=== PATIENT | female | born 1955 | race Caucasian/White ===

== ENCOUNTER 2018-01-17 06:27 | Day surgery (SDC) | payer OTHER, SELFPAY ==
[2018-01-17] VITALS (8 sets, daily range): BP systolic 82–139; BP diastolic 52–75; PULSE 54–68; RESP 16–20; TEMP 36.4–37.2; O2SAT 95–98; BMI 34.6
--- NOTE | 2018-01-17 07:26 | PCM.HP.STD ---
Problem List (1) Positive colorectal cancer screening using Cologuard test Status: Acute History of Present Illness Date of Admission: 01/17/18 The patient is a 62 year old F who has GERD and a positive Cologuard test. She is not having any blood in her stool or abdominal pain. She reports that after being started on a PPI her GERD is significantly improved and she does not want an EGD. She is here for colonoscopy. Past Medical History Past Medical History (Chronic Problems): Chronic Problems (Last Reviewed 12/16/17 @ 13:20 by Dayna Grimaldo) HTN (hypertension) (Chronic) Obesity (Chronic) Allergies Sulfa (Sulfonamide Antibiotics) Allergy (Verified 01/11/18 15:58) Rash Home Medications: Ambulatory Orders Medication Instructions Recorded Hydrochlorothiazide [Hctz] 25 mg PO DAILY 10/25/17 Meloxicam [Mobic] 15 mg PO DAILY 10/25/17 Oxybutynin [Ditropan] 5 mg PO DAILY 10/25/17 pantoprazole 40 mg tablet,delayed 40 mg PO QDAY #60 tab 12/06/17 release Surgical History: appendectomy, - - Tubal ligation Psychiatric History: No pertinent psych hx 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 Smoking Status: Never smoker - *Family History Maternal History Items: Diabetes, Heart Disease, Hypertension, - Paternal History Items: Heart Disease, - Sibling History Items: Hypertension Review of Systems Constitutional: Denies: Anorexia, Chills Respiratory: Denies: Cough, Shortness of Breath Gastrointestinal: Denies: Abdominal Pain Genitourinary: Denies: Dysuria VTE Information - Inpt Only VTE Present on Admission: No Patient Problems: Active and Suspected Problems (Last Reviewed 12/16/17 @ 13:20 by Dayna Grimaldo) Positive colorectal cancer screening using Cologuard test (Acute) - Physical Exam General: Alert, Oriented x3, Cooperative Lungs: Normal air movement Cardiovascular: Regular rate, Regular Rhythm Abdomen: Soft, Non Tender, Non-Distended Vital Signs Temp Pulse Resp BP Pulse Ox 98.9 F 68 16 136/70 H 98 01/17/18 06:49 01/17/18 06:49 01/17/18 06:49 01/17/18 06:49 01/17/18 06:49 Oxygen Delivery Method Room Air Weight: 205 lb 0.478 oz Body Mass Index (BMI) 34.6 Assessment/Plan Active and Suspected Problems (Last Reviewed 12/16/17 @ 13:20 by Dayna Grimaldo) Positive colorectal cancer screening using Cologuard test (Acute) 62-year-old female with positive Cologuard test here for screening colonoscopy 1. Patient is here for screening colonoscopy after having a positive screening test. She reports no blood in her stool or abdominal pain. No family history of colon cancer. She says that her EGD has been significantly improved with the PPI and does not want an EGD at this time. 2. I explained endoscopy in detail to the patient. I explained the risks including but not limited to stroke or heart attack with anesthesia, perforation of the GI tract, bleeding, infection. I explained that any of these could necessitate further emergency surgery. The patient understands and all questions were answered sufficiently. The patient wishes to proceed with procedure. Floyd Monroe MD Pager: [facility] [address], [facility] [address] [place] [address] Office:
--- NOTE | 2018-01-17 07:29 | HP.PCM_ITS ---
Problem List (1) Positive colorectal cancer screening using Cologuard test Status: Acute History of Present Illness Date of Admission: 01/17/18 The patient is a 62 year old F who has GERD and a positive Cologuard test. She is not having any blood in her stool or abdominal pain. She reports that after being started on a PPI her GERD is significantly improved and she does not want an EGD. She is here for colonoscopy. Past Medical History Past Medical History (Chronic Problems): Chronic Problems (Last Reviewed 12/16/17 @ 13:20 by Dayna Grimaldo) HTN (hypertension) (Chronic) Obesity (Chronic) Allergies Sulfa (Sulfonamide Antibiotics) Allergy (Verified 01/11/18 15:58) Rash Home Medications: Ambulatory Orders Medication Instructions Recorded Hydrochlorothiazide [Hctz] 25 mg PO DAILY 10/25/17 Meloxicam [Mobic] 15 mg PO DAILY 10/25/17 Oxybutynin [Ditropan] 5 mg PO DAILY 10/25/17 pantoprazole 40 mg tablet,delayed 40 mg PO QDAY #60 tab 12/06/17 release Surgical History: appendectomy, - - Tubal ligation Psychiatric History: No pertinent psych hx 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 history Smoking Status: Never smoker - *Family History Maternal History Items: Diabetes, Heart Disease, Hypertension, - Paternal History Items: Heart Disease, - Sibling History Items: Hypertension Review of Systems Constitutional: Denies: Anorexia, Chills Respiratory: Denies: Cough, Shortness of Breath Gastrointestinal: Denies: Abdominal Pain Genitourinary: Denies: Dysuria VTE Information - Inpt Only VTE Present on Admission: No Patient Problems: Active and Suspected Problems (Last Reviewed 12/16/17 @ 13:20 by Dayna Grimaldo) Positive colorectal cancer screening using Cologuard test (Acute) - Physical Exam General: Alert, Oriented x3, Cooperative Lungs: Normal air movement Cardiovascular: Regular rate, Regular Rhythm Abdomen: Soft, Non Tender, Non-Distended Vital Signs Temp Pulse Resp BP Pulse Ox 98.9 F 68 16 136/70 H 98 01/17/18 06:49 01/17/18 06:49 01/17/18 06:49 01/17/18 06:49 01/17/18 06:49 Oxygen Delivery Method Room Air Weight: 205 lb 0.478 oz Body Mass Index (BMI) 34.6 Assessment/Plan Active and Suspected Problems (Last Reviewed 12/16/17 @ 13:20 by Dayna Grimaldo) Positive colorectal cancer screening using Cologuard test (Acute) 62-year-old female with positive Cologuard test here for screening colonoscopy 1. Patient is here for screening colonoscopy after having a positive screening test. She reports no blood in her stool or abdominal pain. No family history of colon cancer. She says that her EGD has been significantly improved with the PPI and does not want an EGD at this time. 2. I explained endoscopy in detail to the patient. I explained the risks including but not limited to stroke or heart attack with anesthesia, perforation of the GI tract, bleeding, infection. I explained that any of these could necessitate further emergency surgery. The patient understands and all questions were answered sufficiently. The patient wishes to proceed with procedure. Floyd Monroe MD Pager: [facility] [address], [facility] [address] [place] [address] Office:
--- NOTE | 2018-01-17 09:05 | PCM.OPRPT ---
Problem List (1) Positive colorectal cancer screening using Cologuard test Status: Acute Report of Operation Date of Procedure: 01/17/18 Pre-Operative Diagnosis: Positive ColoGuard test Post-Operative Diagnosis: Normal colonoscopy. Diverticulosis Surgery/Procedure Performed:: Colonoscopy Description of Procedure: The major risks and benefits associated with the procedure were explained to the patient in detail. The patient verbalized understanding and agreement with the same. The patient was brought to the endoscopy suite. After adequate sedation was achieved, the patient was placed in the left lateral decubitus position and a digital rectal exam was performed. This examination was within normal limits. A well-lubricated colonoscope was then inserted into the rectum and advanced under direct visualization to the level of the cecum. The bowel prep was good. The cecum was identified by both visual and anatomic landmarks. A photograph was taken of the end of the cecum. The scope was then fully withdrawn while examining the color, texture, anatomy and integrity of the mucosa from the cecum to the anal canal. The findings were consistent with normal colonic mucosa. The patient did have mild diverticulosis of the sigmoid colon. Over 6 minutes were taken to examine the colonic mucosa. Upon reaching the rectum the scope was retroflexed to examine the distal rectal vault. The scope was then straightened and was completely retrieved upon exiting the anal canal and the procedure was terminated. The patient was then transferred to the recovery room in stable condition. Recommendations for follow up: 10 years
== END 2018-01-17 08:30 | disposition home or self-care (01) ==
LOC: EN 06:28 → AC 06:30
PROVIDERS: Family Provider Family Medicine; PCP Family Medicine; Visit Provider Surgery
PROC: 0DJD8ZZ Inspection of Lower Intestinal Tract, Via Natural or Artificial Opening Endoscopic (ICD-10-PCS; CPT 45378; principal; 2018-01-17 07:25)
DX: Z12.11 Encounter for screening for malignant neoplasm of colon (principal); K57.30 Diverticulosis of large intestine without perforation or abscess without bleeding; I10 Essential (primary) hypertension; K21.9 Gastro-esophageal reflux disease without esophagitis; E66.9 Obesity, unspecified; Z68.34 Body mass index [BMI] 34.0-34.9, adult; Z79.899 Other long term (current) drug therapy; Z78.0 Asymptomatic menopausal state; Z98.51 Tubal ligation status
CPT/HCPCS: 45378; J7120

== ENCOUNTER 2018-06-29 15:00 | Outpatient (RCR) | payer OTHER, SELFPAY ==
--- NOTE | 2018-06-02 10:05 | HP.PTEVAL_ITS ---
Patient's Visit Information DARLING ZENDEJAS is a 63 year old F referred to Physical Therapy by Princess Brantley DO with a diagnosis of Left Knee Pain. Date of Evaluation: 06/02/18 Physical Therapist: Sharron William PT - Visit Plan Frequency: 2x /Week Duration: 4 Weeks Plan: Therapeutic exercises and activities to target BLE strength, endurance, flexibility and range of motion. Gait and balance training for improved mobility. Modalities and Manual as needed to decrease pain and increase ROM. Incorporate HEP to promote maintainence and independence. - Subjective Subjective: KYLEE Patient presents with left knee pain that has been going on for over 2 months. 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 State pain worsens with stairs especially going down, standing on her feet for extended time and bending her knee. Reports no numbness or tingling but does have clicking sensation and crackling in knee at times. Pain is relieved by tylenol and keeping knee straight. Reports no MRI or Xray. No reported MSK, neuro, respiratory or heart conditions - Pain left knee Pain Intensity (Out of 10): 3 Pain Intensity Range: 5 Comment: worsen with prolonged activity - Objective Posture: Sitting slouched with left knee extended; Static standing equal WB through BLE but with extended time standing slight shift onto RLE. Appearance: Moderate swelling of left knee especially medial and anterior to patella. Slight swelling of back of knee. Sensation: Intact to light touch. Palpation: Tenderness and pain to palpation over medial joint line of left knee; Slight tenderness to palpation behind left knee. ROM: Bilateral hips WFL; R knee 0-125 * and L knee 3-90* actively and passively 3-110*. Strength: BLE grossly 4+/5 except left knee flexion 4-/5, bilateral hip abduction (seated) 4/5, left hip flexion 4/5 and left knee extension 4/5; Pain with resistance to left knee movements. Flexibility: Moderate tightness of bilateral hamstrings R knee -15* knee extension and L knee -25* knee extension. Special Tests: See below; No positive signs for pain, however, increased uncomfortability to disco and Ruperto tests. Presenting more arthritic then ligament at evaluation. Balance : Tandem stance bilaterally 30 seconds with moderate ankle sway. Gait: Patient ambulating with a heel/toe gait pattern with an ataxic gait with decrease stance time on LLE. Mild hip drop on the right. When more irritated toward end of evaluation increased hip hike on the left to help clear foot. Stairs: patient ascends stairs using an alternating foot pattern with single to occasional bilateral handrail support. Descending stairs she uses a step to pattern, left leading, with bilateral handrail support - Special Tests L Knee Ruperto - Meniscus: Negative L Knee Disco Test - Meniscus: Negative L Knee Anterior Drawer - ACL: Negative L Knee Posterior Drawer - PCL: Negative L Knee Valgus - MCL: Negative L Knee Varus - LCL: Negative - Goals Goal 1:: Patient will increase L knee ROM to match R knee motion for improved mobility Goal Time Frame: 4-6 Weeks Goal 2:: patient will increase L knee strength grossly 4+/5 for improved performance with functional activities Goal Time Frame: 4-6 Weeks Goal 3:: Patient will increase bilateral hamstring flexibility by 5* for improved mobility Goal Time Frame: 4-6 Weeks Goal 4:: Patient will descend stairs using an alternating foot pattern with bilateral handrail support for improved performance with ADLs. Goal Time Frame: 4-6 Weeks Goal 5:: Patient will ambulate 100 ft. with a heel/toe gait pattern without conpensatory movements for improved gait and mobility. Goal Time Frame: 4-6 Weeks Goal 6:: Patient will increase BLE grossly 5/5 for improved performance with functional activities Goal Time Frame: 4-6 Weeks - Rehabilitation Potential Physical Therapy Diagnosis: Muscle Weakness, Limited Range of Motion, Impaired Gait Rehabilitation Potential: Fair - Anticipated Interventions Patient/Client Instruction: Educate patient on: Condition, Plan of Care For the Purpose of:: To decrease pain, To decrease swelling/inflammation, To increase ROM, To improve muscle performance and motor function, To improve ability to perform ADL's, To improve performance and independence with ADL's, To improve ability of physical actions for home/community/work/leisure, To improve gait and locomotor functions, To improve endurance, To improve balance, To improve safety with gait Therapeutic Exercise to Include: Strength training, Endurance training, Balance training, Body mechanics, Flexibilty training, Gait and locomotor training, Passive ROM, Active ROM For the Purpose of:: To decrease pain, To increase ROM, To improve muscle performance and motor function, To improve ability of physical actions for home/ community/work/leisure, To improve gait and locomotor functions Functional Training to Include: ADL Training, Gait training For the Purpose of:: To improve muscle performance and motor function, To improve performance and independence with ADL's, To improve ability of physical actions for home/community/work/leisure, To improve gait and locomotor functions Comment: massage not covered For the Purpose of:: To decrease pain, To decrease swelling/inflammation, To increase ROM, To increase flexibility/ROM Iontophoresis (with Dexamethozone, with Acetic acid): No - not covered by insurance For the Purpose of:: To decrease pain, To decrease swelling/inflammation, To increase ROM, To increase flexibility/ROM Thank you for the opportunity to evaluate your patient. For Medicare and Medicare HMO plans, please review the plan of care and approve it. It will need to be FAXED BACK to us at [phone] for Medicare purposes. Please let me know if there are questions or concerns regarding this plan of care. Physician Signature: Date:
--- NOTE | 2018-06-29 15:36 | HP.PTDCSUM ---
HP - PT D/C Summary It has been my pleasure to treat DARLING ZENDEJAS under orders from Princess Brantley DO, for the diagnosis of Left Knee Pain for a total of 8 visit(s). Discharge Date: Please see the following information for a summary of their discharge status. - Subjective Subjective: No pain this date - Pain left knee Pain Intensity (Out of 10): 0 - Overall Improvement % Improvement: 80 - Objective Objective/Function: 0/10 pain this date. No more sleep difficulty secondary to pain. L knee ROM: 0-128 degrees. L knee MMT: 5/5 throughout. Pt is able to negotiate stairs now without limitation. I with HEP. Rx goals achieved - Goals Goal 1:: Patient will increase L knee ROM to match R knee motion for improved mobility Goal Progress: Goal Met Goal 2:: patient will increase L knee strength grossly 4+/5 for improved performance with functional activities Goal Progress: Goal Met Goal 3:: Patient will increase bilateral hamstring flexibility by 5* for improved mobility Goal Progress: Goal Met Goal 4:: Patient will descend stairs using an alternating foot pattern with bilateral handrail support for improved performance with ADLs. Goal Progress: Goal Met Goal 5:: Patient will ambulate 100 ft. with a heel/toe gait pattern without conpensatory movements for improved gait and mobility. Goal Progress: Goal Met Goal 6:: Patient will increase BLE grossly 5/5 for improved performance with functional activities Goal Progress: Goal Met - Plan Plan: Discharge - D/C Information If there are questions or concerns regarding this patient's physical therapy, please feel free to call me at [phone]. Thank you for the referral of this patient. Sincerely, Pranay Gonzales, PT,
== END 2018-06-29 19:00 | disposition home or self-care (01) ==
LOC: PT 15:00
PROVIDERS: Family Provider Family Medicine; PCP Family Medicine; Visit Provider Family Medicine
DX: M25.562 Pain in left knee (principal); S83 Dislocation and sprain of joints and ligaments of knee
CPT/HCPCS: 97110; 97162; 97530

== ENCOUNTER → 2019-01-31 09:22 | Outpatient (CLI) | payer OTHER, SELFPAY ==
--- NOTE | 2019-01-31 09:28 | BI_ITS ---
MAMMOGRAPHY - BILATERAL SCREENING REASON FOR EXAM: Female, 63 years old. Routine annual screening examination. PERTINENT HISTORY: Non-contributory. TECHNIQUE: Digital bilateral breast christina (3D mammographic acquisition) in the CC and MLO projections. 2-D mediolateral oblique (MLO) and craniocaudad (CC) views of both breasts were obtained. CAD: Full Field Digital Mammography with Computer Added Detection was performed. COMPARISON: Comparison is made with prior examination dated November 22, 2017. FINDINGS: Breast Composition: The breasts are heterogeneously dense, which may obscure small masses. There are no dominant masses or suspicious calcifications. No other significant abnormalities are identified. There has been no significant change since the prior study. BI/SCREENING MAMM (CAD), BILAT IMPRESSION: Stable bilateral screening mammogram. Yearly follow-up mammogram recommended. (A) ASSESSMENT CATEGORY: BIRADS Category 1: Negative. A letter regarding these results will be sent to the patient by the facility within 30 days. Approximately 10% of breast cancers are not detected by mammography. A normal mammogram should not delay biopsy of a clinically suspicious abnormality. [id number] Electronically Signed: Vito Weinstein, at 13:08 EDT , Service support ,
[2019-01-31 10:32] LABS: Absolute Lymphocyte Count 1.84 X10^3/ul (0.83-4.51); Absolute Neutrophil Count 4.7 X10^3/uL (2.0-7.7); Basophil# 0.02 X10^3/uL; Basophil% 0.3 % (0-1); Eosinophil# 0.13 X10^3/uL; Eosinophils% 1.8 % (0-5); Hematocrit 41.7 % (37-47); Hemoglobin 13.7 g/dl (12.0-15.0); Lymphocyte # 1.84 X10^3/ul (4.0); Mean Corp Hgb Conc 32.9 g/gl (32-36); Mean Corpuscular Hgb 29.5 pg (27.0-32.0); Mean Corpuscular Volume 89.9 fL (81-99); Mean Platelet Vol. 10.3 fl (6.2-12.0); Monocyte# 0.69 X10^3/uL; Monocyte% 9.4 % (0-10); Neutrophil # 4.66 X10^3/uL (2.7-7.7); Neutrophil % 63.2 % (47-70); Platelet Count 245 K/mm3 (150-450); RBC Distribution Width CV 13.5 % (11.6-14.6); RBC Distribution Width SD 43.7 fl (35.1-43.9); Red Blood Count 4.64 M/mm3 (4.2-5.4); White Blood Count 7.4 K/mm3 (4.4-11.0)
[2019-01-31 10:36] LABS: POSITIVE COUNT NO; POSITIVE DIFFERENTIAL NO; POSITIVE MORPHOLOGY NO
[2019-01-31 10:42] LABS: AST(SGOT) 18 U/L (15-37); Alanine Aminotransfer ALT/SGPT 27 U/L (13-56); Albumin, Serum 4.2 g/dL (3.2-5.0); Alkaline Phosphatase 85 U/L (45-117); Anion Gap 9 (5-15); BUN 19 mg/dL (7-18); BUN/Creat Ratio 16.7 RATIO (10-20); Calcium,Total 9.2 mg/dL (8.5-10.1); Chloride 105 mmol/L (98-107); Cholesterol 227 mg/dL (200); Creatinine, Serum 1.14 mg/dL (0.55-1.02); EST Glomerular Filtration Rate 51 mL/min (>60); Est Glom Filt Rate - Afr Amer 62 mL/min (>60); Globulin 4.1 g/dL (2.2-4.2); Glucose 104 mg/dL (74-106); High Density Lipoprotein 60 mg/dL; Potassium 4.1 mmol/L (3.5-5.1); Protein, Total 8.3 g/dL (6.4-8.2); Sodium Level 140 mmol/L (136-145); Triglycerides 132 mg/dL; Very Low Density Lipoprotein 26 mg/dL (5-40)
== END ==
LOC: OPBI 09:23 → PAVLAB 09:54
PROVIDERS: Family Provider Family Medicine; PCP Family Medicine; Referring Provider Family Medicine; Visit Provider Family Medicine
DX: Z12.31 Encounter for screening mammogram for malignant neoplasm of breast (principal); Z00.00 Encounter for general adult medical examination without abnormal findings; I10 Essential (primary) hypertension; Z13.220 Encounter for screening for lipoid disorders; Z51.81 Encounter for therapeutic drug level monitoring
CPT/HCPCS: 36415; 77063; 77067; 80053; 80061; 85025

== ENCOUNTER → 2019-05-08 08:25 | Outpatient (CLI) | payer OTHER, SELFPAY ==
[2019-05-08 12:40] LABS: Anion Gap 10 (5-15); BUN 19 mg/dL (7-18); BUN/Creat Ratio 17.1 RATIO (10-20); Chloride 104 mmol/L (98-107); Cholesterol 203 mg/dL (200); Creatinine, Serum 1.11 mg/dL (0.55-1.02); EST Glomerular Filtration Rate 53 mL/min (>60); Est Glom Filt Rate - Afr Amer 64 mL/min (>60); Glucose 92 mg/dL (74-106); High Density Lipoprotein 49 mg/dL; Potassium 3.8 mmol/L (3.5-5.1); Sodium Level 139 mmol/L (136-145); Triglycerides 167 mg/dL; Very Low Density Lipoprotein 33 mg/dL (5-40)
== END ==
PROVIDERS: Family Provider Family Medicine; PCP Family Medicine; Visit Provider Family Medicine
DX: I10 Essential (primary) hypertension (principal); E78.5 Hyperlipidemia, unspecified; Z51.81 Encounter for therapeutic drug level monitoring
CPT/HCPCS: 36415; 80048; 80061

== ENCOUNTER → 2020-01-28 08:15 | Outpatient (CLI) | payer OTHER, SELFPAY ==
--- NOTE | 2020-01-28 08:20 | BI_ITS ---
MAMMOGRAPHY - BILATERAL SCREENING REASON FOR EXAM: Female, 64 years old. Routine annual screening examination. PERTINENT HISTORY: Non-contributory. History of prior left breast aspiration. TECHNIQUE: Digital bilateral breast ino (3D mammographic acquisition) in the CC and MLO projections. 2-D mediolateral oblique (MLO) and craniocaudad (CC) views of both breasts were obtained. CAD: Full Field Digital Mammography with Computer Added Detection was performed. COMPARISON: Comparison is made with prior study dated January 31, 2019. FINDINGS: Breast Composition: The breasts are heterogeneously dense, which may obscure small masses. There are no dominant masses or suspicious calcifications. No other significant abnormalities are identified. There has been no significant change since the prior study. BI/SCREEN MAMM (CAD) W/INO BILAT IMPRESSION: Stable bilateral screening mammogram. Yearly follow-up mammogram recommended. (A) ASSESSMENT CATEGORY: BIRADS Category 2: Benign. A letter regarding these results will be sent to the patient by the facility within 30 days. Approximately 10% of breast cancers are not detected by mammography. A normal mammogram should not delay biopsy of a clinically suspicious abnormality. [id number] Electronically Signed: Vito Weinstein, at 10:31 EDT , Service support ,
[2020-01-28 09:24] LABS: Absolute Lymphocyte Count 1.92 X10^3/uL (0.83-4.51); Absolute Neutrophil Count 3.2 X10^3/uL (2.0-7.7); Basophil# 0.03 X10^3/uL; Basophil% 0.5 % (0-1); Eosinophil# 0.14 X10^3/uL; Eosinophils% 2.4 % (0-5); Hematocrit 39.7 % (37-47); Lymphocyte # 1.92 X10^3/ul (4.0); Lymphocyte % 32.7 % (19-41); Mean Corp Hgb Conc 32.7 g/dL (32-36); Mean Corpuscular Hgb 29.5 pg (27.0-32.0); Mean Platelet Vol. 9.5 fl (6.2-12.0); Monocyte# 0.59 X10^3/uL; Monocyte% 10.1 % (0-10); NRBC Flagged by Analyzer 0 % (0-5); Neutrophil # 3.16 X10^3/uL (2.7-7.7); Neutrophil % 53.8 % (47-70); Platelet Count 242 K/mm3 (150-450); RBC Distribution Width CV 13.2 % (11.6-14.6); RBC Distribution Width SD 43.6 fl (35.1-43.9); Red Blood Count 4.41 M/mm3 (4.2-5.4); White Blood Count 5.9 K/mm3 (4.4-11.0)
[2020-01-28 09:35] LABS: ALB/GLOB Ratio 0.9 RATIO (0.9-2.4); AST(SGOT) 13 U/L (15-37); Alanine Aminotransfer ALT/SGPT 26 U/L (13-56); Albumin, Serum 3.5 g/dL (3.2-5.0); Alkaline Phosphatase 82 U/L (45-117); Anion Gap 6 (5-15); BUN 22 mg/dL (7-18); BUN/Creat Ratio 19.1 RATIO (10-20); Calcium,Total 9.3 mg/dL (8.5-10.1); Chloride 105 mmol/L (98-107); Cholesterol 225 mg/dL (200); Creatinine, Serum 1.15 mg/dL (0.55-1.02); EST Glomerular Filtration Rate 51 mL/min (>60); Est Glom Filt Rate - Afr Amer 61 mL/min (>60); Globulin 3.9 g/dL (2.2-4.2); Glucose 96 mg/dL (74-106); High Density Lipoprotein 55 mg/dL; Potassium 3.8 mmol/L (3.5-5.1); Protein, Total 7.4 g/dL (6.4-8.2); Sodium Level 139 mmol/L (136-145); Triglycerides 122 mg/dL; Very Low Density Lipoprotein 24 mg/dL (5-40)
== END ==
PROVIDERS: PCP Family Medicine; Referring Provider Family Medicine; Visit Provider Family Medicine
DX: Z12.31 Encounter for screening mammogram for malignant neoplasm of breast (principal); I10 Essential (primary) hypertension; E78.1 Pure hyperglyceridemia; Z51.81 Encounter for therapeutic drug level monitoring
CPT/HCPCS: 36415; 77063; 77067; 80053; 80061; 85025

== ENCOUNTER → 2021-01-29 09:52 | Outpatient (CLI) | payer OTHER, SELFPAY ==
[2018-01-17 06:49] VITALS: BMI 34.6
--- NOTE | 2021-01-29 09:56 | BI_ITS ---
MAMMOGRAPHY - BILATERAL SCREENING REASON FOR EXAM: Female, 65 years old. Routine annual screening examination. PERTINENT HISTORY: FAM HX - LT ASPIRATION 2015 TECHNIQUE: Digital bilateral breast ino (3D mammographic acquisition) in the CC and MLO projections. 2-D mediolateral oblique (MLO) and craniocaudad (CC) views of both breasts were obtained. CAD: Full Field Digital Mammography with Computer Added Detection was performed. COMPARISON: 01/28/2020 and 01/31/2019. FINDINGS: Breast Composition: There are scattered areas of fibroglandular density. There is a cluster of microcalcification in the central part of the right breast better seen on the MLO view for which further evaluation by magnification views and ultrasound would be recommended. No other significant abnormalities are identified. BI/SCRN MAMM (CAD)W/INO BILAT IMPRESSION: Further imaging evaluation recommended, as described above. (E) ASSESSMENT CATEGORY: BIRADS Category 0: Incomplete. Need additional imaging evaluation. A letter regarding these results will be sent to the patient by the facility within 30 days. Approximately 10% of breast cancers are not detected by mammography. A normal mammogram should not delay biopsy of a clinically suspicious abnormality. [id number] Electronically Signed: Krysten Poe MD at 16:07 EST Tel , Service support ,
== END ==
PROVIDERS: PCP Family Medicine; Referring Provider Family Medicine; Visit Provider Family Medicine
DX: Z12.31 Encounter for screening mammogram for malignant neoplasm of breast (principal)
CPT/HCPCS: 77063; 77067

== ENCOUNTER 2021-01-30 13:52 | Outpatient (RCR) | payer OTHER, SELFPAY ==
[2018-01-17 06:49] VITALS: BMI 34.6
[2021-01-30] MEDS: COVID-19 VACC, MRNA(PFIZER)/PF 30 MCG/0.3 ML SYRINGE IM (15:23)
[2021-02-20] MEDS: COVID-19 VACC, MRNA(PFIZER)/PF 30 MCG/0.3 ML SYRINGE IM (14:55)
== END 2021-04-28 23:59 ==
LOC: IMMUN 13:52
PROVIDERS: PCP Family Medicine; Referring Provider Family Medicine; Visit Provider Family Medicine
DX: Z23 Encounter for immunization (principal)
CPT/HCPCS: 0001A; 0002A; 91300

== ENCOUNTER → 2021-02-05 09:01 | Outpatient (CLI) | payer OTHER, SELFPAY ==
[2018-01-17 06:49] VITALS: BMI 34.6
[2021-02-05 09:30] LABS: Absolute Lymphocyte Count 1.62 X10^3/uL (0.83-4.51); Basophil# 0.06 X10^3/uL; Basophil% 1.1 % (0-1); Eosinophil# 0.18 X10^3/uL; Eosinophils% 3.3 % (0-5); Hematocrit 38.5 % (37-47); Lymphocyte # 1.62 X10^3/ul (4.0); Lymphocyte % 29.7 % (19-41); Mean Corp Hgb Conc 33.8 g/dL (32-36); Mean Corpuscular Hgb 30.2 pg (27.0-32.0); Mean Corpuscular Volume 89.3 fL (81-99); Mean Platelet Vol. 9.3 fl (6.2-12.0); Monocyte# 0.57 X10^3/uL; Monocyte% 10.5 % (0-10); NRBC Flagged by Analyzer 0 % (0-5); Platelet Count 252 K/mm3 (150-450); RBC Distribution Width CV 12.7 % (11.6-14.6); Red Blood Count 4.31 M/mm3 (4.2-5.4); White Blood Count 5.5 K/mm3 (4.4-11.0)
[2021-02-05 09:46] LABS: AST(SGOT) 19 U/L (15-37); Alanine Aminotransfer ALT/SGPT 29 U/L (13-56); Albumin, Serum 3.8 g/dL (3.2-5.0); Alkaline Phosphatase 98 U/L (45-117); Anion Gap 7 (5-15); BUN 17 mg/dL (7-18); BUN/Creat Ratio 14.7 RATIO (10-20); Calcium,Total 9.3 mg/dL (8.5-10.1); Chloride 105 mmol/L (98-107); Cholesterol 219 mg/dL (200); Creatinine, Serum 1.16 mg/dL (0.55-1.02); EST Glomerular Filtration Rate 50 mL/min (>60); Est Glom Filt Rate - Afr Amer 60 mL/min (>60); Globulin 3.9 g/dL (2.2-4.2); Glucose 96 mg/dL (74-106); High Density Lipoprotein 58 mg/dL; Potassium 3.9 mmol/L (3.5-5.1); Protein, Total 7.7 g/dL (6.4-8.2); Sodium Level 140 mmol/L (136-145); Triglycerides 129 mg/dL; Very Low Density Lipoprotein 26 mg/dL (5-40)
[2021-02-05 17:27] LABS: Xtra Tube EP Lab EXTRA TUBE
== END ==
PROVIDERS: PCP Family Medicine; Referring Provider Family Medicine; Visit Provider Family Medicine
DX: Z51.81 Encounter for therapeutic drug level monitoring (principal); Z13.220 Encounter for screening for lipoid disorders
CPT/HCPCS: 36415; 80053; 80061; 85025

== ENCOUNTER → 2021-02-12 08:39 | Outpatient (CLI) | payer OTHER, SELFPAY ==
[2018-01-17 06:49] VITALS: BMI 34.6
--- NOTE | 2021-02-12 08:58 | BI_ITS ---
MAMMOGRAPHY - UNILATERAL DIAGNOSTIC: RIGHT BREAST REASON FOR EXAM: Female, 65 years old. Abnormal screening mammogram. PERTINENT HISTORY: Non-contributory. TECHNIQUE: Compression magnification spot view of the right breast in the mediolateral oblique projection was obtained. CAD: Full Field Digital Mammography with Computer Added Detection was performed. COMPARISON: Comparison is made with prior examination dated 01/29/2021. FINDINGS: Breast Composition: The breasts are heterogeneously dense, which may obscure small masses. There are no dominant masses or suspicious calcifications. The calcifications most likely are vascular in nature. No other significant abnormalities are identified. BI/DIAG MAMM W/CAD, UNILAT IMPRESSION: The calcifications are most likely vascular in nature. Six-month follow-up right mammogram is recommended. ASSESSMENT CATEGORY: BIRADS Category 3: Probably Benign - Short-Interval Follow-up Suggested. A letter regarding these results will be sent to the patient by the facility within 30 days. Approximately 10% of breast cancers are not detected by mammography. A normal mammogram should not delay biopsy of a clinically suspicious abnormality. Electronically Signed: Vito Weinstein MD at 9:48 EDT , Service support ,
--- NOTE | 2021-02-12 09:18 | US_ITS ---
STUDY: ULTRASOUND BREAST - RIGHT REASON FOR EXAM: Female, 65 years old. Abnormal screening mammogram. TECHNIQUE: Axial and longitudinal images of the RIGHT breast were performed with a high resolution ultrasound transducer. # OF IMAGES: [id number] COMPARISON: Comparison is made with prior mammogram done earlier this morning as well as prior mammogram dated 01/29/2021. FINDINGS: RIGHT Breast: The inferior half of the right breast was examined by ultrasound. No sonographic abnormality is seen. US/Breast Limited Unilateral IMPRESSION: No sonographic abnormality is seen. ASSESSMENT CATEGORY: BIRADS Category 1: Negative. A letter regarding these results will be sent to the patient by the facility within 30 days. Electronically Signed: Vito Weinstein MD at 10:45 EDT , Service support ,
== END ==
PROVIDERS: PCP Family Medicine; Referring Provider Family Medicine; Visit Provider Family Medicine
DX: R92.8 Other abnormal and inconclusive findings on diagnostic imaging of breast (principal)
CPT/HCPCS: 76642; 77065

== ENCOUNTER 2022-02-05 08:02 | Outpatient (CLI) | payer MEDICARE, OTHER, SELFPAY ==
--- NOTE | 2022-02-05 08:08 | BI_ITS ---
MAMMOGRAPHY - BILATERAL SCREENING 3-D TOMOSYNTHESIS REASON FOR EXAM: Female, 66 years old. SCREENING PERTINENT HISTORY: No significant family history. TECHNIQUE: 2-D mammograms and 3-D Tomosynthesis of the breast (s) were performed. CAD was performed. COMPARISON: 01/29/2021 FINDINGS: The breast composition is heterogeneously dense that can obscure small breast masses. Scattered benign calcifications are seen. No dense spiculated masses or suspicious microcalcifications are identified. No architectural distortion is identified. There is no skin thickening or retraction. There has been no significant change since the prior study. BI/SCRN MAMM (CAD)W/INO BILAT IMPRESSION: No mammographic signs of malignancy. Routine yearly mammograms recommended. ASSESSMENT CATEGORY: BIRADS Category 1: Negative. A letter regarding these results will be sent to the patient by the facility within 30 days. FOLLOW UP RECOMMENDATION: Yearly follow up mammogram recommended. (A) Approximately 10% of breast cancers are not detected by mammography. A normal mammogram should not delay biopsy of a clinically suspicious abnormality. Electronically Signed: Christian Worthy MD at 9:56 EDT ,
[2022-02-05 08:41] LABS: Absolute Lymphocyte Count 1.46 X10^3/uL (0.83-4.51); Absolute Neutrophil Count 3.2 X10^3/uL (2.0-7.7); Basophil# 0.04 X10^3/uL; Basophil% 0.7 % (0-1); Eosinophil# 0.15 X10^3/uL; Eosinophils% 2.7 % (0-5); Hematocrit 39.6 % (37-47); Hemoglobin 13.5 g/dL (12.0-15.0); Lymphocyte # 1.46 X10^3/ul (0.83-4.51); Lymphocyte % 26.7 % (19-41); Mean Corp Hgb Conc 34.1 g/dL (32-36); Mean Corpuscular Hgb 30.5 pg (27.0-32.0); Mean Corpuscular Volume 89.4 fL (81-99); Mean Platelet Vol. 9.7 fl (6.2-12.0); Monocyte# 0.63 X10^3/uL; Monocyte% 11.5 % (0-10); NRBC Flagged by Analyzer 0 % (0-5); Neutrophil # 3.16 X10^3/uL (2.7-7.7); Neutrophil % 57.9 % (47-70); Platelet Count 241 K/mm3 (150-450); RBC Distribution Width CV 13.3 % (11.6-14.6); RBC Distribution Width SD 43.9 fl (35.1-43.9); Red Blood Count 4.43 M/mm3 (4.2-5.4); White Blood Count 5.5 K/mm3 (4.4-11.0)
[2022-02-05 08:55] LABS: AST(SGOT) 18 U/L (15-37); Alanine Aminotransfer ALT/SGPT 28 U/L (13-56); Albumin, Serum 3.8 g/dL (3.2-5.0); Alkaline Phosphatase 80 U/L (45-117); Anion Gap 6 (5-15); BUN 17 mg/dL (7-18); BUN/Creat Ratio 13.4 RATIO (10-20); Calcium,Total 9.7 mg/dL (8.5-10.1); Chloride 107 mmol/L (98-107); Cholesterol 246 mg/dL (200); Creatinine, Serum 1.27 mg/dL (0.55-1.02); EST Glomerular Filtration Rate 45 mL/min (>60); Est Glom Filt Rate - Afr Amer 54 mL/min (>60); Globulin 3.7 g/dL (2.2-4.2); Glucose 108 mg/dL (74-106); High Density Lipoprotein 60 mg/dL; Potassium 4.1 mmol/L (3.5-5.1); Protein, Total 7.5 g/dL (6.4-8.2); Sodium Level 138 mmol/L (136-145); Triglycerides 132 mg/dL; Very Low Density Lipoprotein 26 mg/dL (5-40)
== END 2022-02-05 23:59 | disposition home or self-care (01) ==
PROVIDERS: PCP Family Medicine; Referring Provider Family Medicine; Visit Provider Family Medicine
DX: Z12.31 Encounter for screening mammogram for malignant neoplasm of breast (principal); Z00.00 Encounter for general adult medical examination without abnormal findings; Z51.81 Encounter for therapeutic drug level monitoring; E78.5 Hyperlipidemia, unspecified
CPT/HCPCS: 36415; 77063; 77067; 80053; 80061; 85025

== ENCOUNTER 2022-03-01 10:13 | Outpatient (CLI) | payer MEDICARE, OTHER, SELFPAY ==
--- NOTE | 2022-03-01 10:17 | RAD_ITS ---
STUDY: XR Knee Complete 4 Views or More 03/01/2022 4:52 PM REASON FOR EXAM: Female, 66 years old. PAIN TECHNIQUE: XR Knee Complete 4 Views or More LEFT COMPARISON: None FINDINGS: Normal visualized distal femur. Normal visualized proximal tibia and fibula. Normal proximal tibiofibular articulation. There is moderate degenerative arthrosis of the medial femorotibial compartment with moderate joint space narrowing. There is mild degenerative arthrosis of the lateral femorotibial compartment. There is mild degenerative arthrosis of the patellofemoral articulation. The soft tissue structures are unremarkable. RAD/Knee 4 or More Views IMPRESSION: Degenerative arthrosis. Electronically Signed: Pranay Durant MD at 16:53 EDT ,
== END 2022-03-01 23:59 | disposition home or self-care (01) ==
LOC: MTRAD 10:15
PROVIDERS: PCP Family Medicine; Referring Provider Family Medicine; Visit Provider Family Medicine
DX: M25.562 Pain in left knee (principal)
CPT/HCPCS: 73564

== ENCOUNTER → 2023-02-07 | Outpatient (CLI) | payer MEDICARE, OTHER, SELFPAY ==
--- NOTE | 2023-02-07 09:41 | BI_ITS ---
MAMMOGRAPHY - BILATERAL SCREENING REASON FOR EXAM: Female, 67 years old. Routine annual screening examination. PERTINENT HISTORY: Non-contributory. History of prior left breast aspiration biopsy. TECHNIQUE: Digital bilateral breast ino (3D mammographic acquisition) in the CC and MLO projections. 2-D mediolateral oblique (MLO) and craniocaudad (CC) views of both breasts were obtained. CAD: Full Field Digital Mammography with Computer Added Detection was performed. COMPARISON: Comparison is made with prior study dated February 05, 2022 and January 29, 2021. FINDINGS: Breast Composition: The breasts are heterogeneously dense, which may obscure small masses. There are no dominant masses or suspicious calcifications. No other significant abnormalities are identified. There has been no significant change since the prior study. BI/SCRN MAMM (CAD)W/INO BILAT IMPRESSION: Stable bilateral screening mammogram. Yearly follow-up mammogram recommended. (A) ASSESSMENT CATEGORY: BIRADS Category 1: Negative. A letter regarding these results will be sent to the patient by the facility within 30 days. Approximately 10% of breast cancers are not detected by mammography. A normal mammogram should not delay biopsy of a clinically suspicious abnormality. [id number] Electronically Signed: Vito Weinstein MD at 10:29 EDT ,
== END | disposition home or self-care (01) ==
LOC: OPBI 09:39
PROVIDERS: PCP Family Medicine; Referring Provider Family Medicine; Visit Provider Family Medicine
DX: Z12.31 Encounter for screening mammogram for malignant neoplasm of breast (principal)
CPT/HCPCS: 77063; 77067

== ENCOUNTER → 2023-02-16 | Outpatient (CLI) | payer MEDICARE, OTHER, SELFPAY ==
[2023-02-16 10:20] LABS: Absolute Lymphocyte Count 1.35 X10^3/uL (0.83-4.51); Absolute Neutrophil Count 3.9 X10^3/uL (2.0-7.7); Basophil# 0.05 X10^3/uL; Basophil% 0.8 % (0-1); Eosinophil# 0.13 X10^3/uL; Eosinophils% 2.1 % (0-5); Hematocrit 37.6 % (37-47); Hemoglobin 12.4 g/dL (12.0-15.0); Lymphocyte # 1.35 X10^3/ul (0.83-4.51); Mean Corpuscular Hgb 29.7 pg (27.0-32.0); Mean Corpuscular Volume 90.2 fL (81-99); Mean Platelet Vol. 10.2 fl (6.2-12.0); Monocyte# 0.67 X10^3/uL; Monocyte% 10.9 % (0-10); NRBC Flagged by Analyzer 0 % (0-5); Neutrophil # 3.89 X10^3/uL (2.7-7.7); Neutrophil % 63.5 % (47-70); Platelet Count 246 K/mm3 (150-450); RBC Distribution Width CV 13.1 % (11.6-14.6); RBC Distribution Width SD 42.9 fl (35.1-43.9); Red Blood Count 4.17 M/mm3 (4.2-5.4); White Blood Count 6.1 K/mm3 (4.4-11.0)
[2023-02-16 11:31] LABS: Albumin, Serum 3.5 g/dL (3.2-5.0); BUN 21 mg/dL (7-18); BUN/Creat Ratio 18.8 RATIO (10-20); Creatinine, Serum 1.12 mg/dL (0.55-1.02); EST Glomerular Filtration Rate 52 mL/min (>60); Est Glom Filt Rate - Afr Amer 63 mL/min (>60); Globulin 3.8 g/dL (2.2-4.2); Glucose 99 mg/dL (74-106); Protein, Total 7.3 g/dL (6.4-8.2)
[2023-02-16 11:32] LABS: ALB/GLOB Ratio 0.9 RATIO (0.9-2.4); AST(SGOT) 19 U/L (15-37); Alanine Aminotransfer ALT/SGPT 30 U/L (13-56); Alkaline Phosphatase 76 U/L (45-117); Anion Gap 8 (5-15); Calcium,Total 9.1 mg/dL (8.5-10.1); Chloride 104 mmol/L (98-107); Cholesterol 195 mg/dL (200); High Density Lipoprotein 55 mg/dL; Sodium Level 135 mmol/L (136-145); Triglycerides 113 mg/dL; Very Low Density Lipoprotein 23 mg/dL (5-40)
== END | disposition home or self-care (01) ==
LOC: MTLAB 08:06
PROVIDERS: PCP Family Medicine; Visit Provider Family Medicine
DX: I10 Essential (primary) hypertension (principal); Z51.81 Encounter for therapeutic drug level monitoring
CPT/HCPCS: 36415; 80053; 80061; 85025

== ENCOUNTER 2023-10-04 09:00 | Outpatient (RCR) | payer MEDICARE, OTHER, SELFPAY ==
--- NOTE | 2023-09-01 10:51 | HP.PTEVAL ---
Patient's Visit Information Visit Information Visit Information: DARLING ZENDEJAS is a 68 year old F referred to Physical Therapy by Dr. Devang Gomez MD with a diagnosis of Greater Troch Bursitis of Left Hip, OA of Left Knee. Date of Evaluation: 09/01/23 Physical Therapist: Hyacinth Monaco DPT Visit Plan Frequency: 2-3x /Week Duration: 4 Weeks Plan: Focus on LE and core strength/stabilization- Left Hip Bursitis due to pelvic translation and instability- significant glut med weakness HEP Given IE: Hawk Yun, SLS Subjective Subjective: Left hip pain for a long time- she has had 2 injections and they only last about 6 weeks and now her left knee is bothering her and she had an injection in her left knee. She feels that there has to be more than just injections that can help since they aren't lasting long enough. 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 She has had x-rays which who a little bit of OA- The pain is located on the lateral aspect of the hip- no pain that radiates down the leg but the knee is now involved- the knee now hurts on the medial aspect of the knee. Worst: 8/10 Agg: walking, laying on it, standing for too long (20 min). Eases: Tylenol, Muscle Rub, sitting down Best: 0/10. Describes the pain as dull and achy but it also just hurts. No N/T in her toes. She has some sciatica issues that comes and goes but that is on the right side but the last flare up was 7-8 years ago. She can't even walk to the mailbox- she goes to her grandchildren's sporting activities. She feels like its limiting her mobility. Sleep: sometimes will wake her up and makes her uncomfortable to get to sleep. No issues on the right side. 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 PMHx/Meds: no changes since she saw Dr. Gomez Tuesday. Last Corisone in hip was April and Knee was Tuesday. Objective Objective: Posture: Forward head, rounded shoulders and increased kyphosis- can correct but does not maintain Gait: increased pelvic sway- no deviation noted today but pt reports that she does sometimes have increased limp HR/TR: able with UE A SLS: 2 seconds- increased pelvic drop ROM: WFL in all planes Palpation: tender along great troch Flex: HS: mild, Gastroc: mild Strength: Core: fair minus, Knee Flexion: 13.7 Knee Extension: 25.8 Hip Extn: 25.1 Hip Flexion: 7.1 Hip Abd: 20, Ankle: 5/5 Balance/Special Test Scores Lower Extremity Functional Score: 36 Goals Goal 1:: Patient will report participation in home exercise program activities a minimum of 5 days per week, as adjunct to skilled physical therapy intervention in preparation for independent home management upon discharge. Goal Time Frame: 4-6 Weeks Goal 2:: Patient will report an increase of 9 points on the LEFS to show minimal clinical significant difference on patients functional outcome measure. Goal Time Frame: 4-6 Weeks Goal 3:: Patient will SLS for 30 sec with eyes open without loss of balance to ease balance and decrease risk of falls Goal Time Frame: 4-6 Weeks Goal 4:: Patient will descend 4+ stairs reciprocally with a single handrail without pain and good technique to demonstrate increased LE functional strength and ease community mobility. Goal Time Frame: 4-6 Weeks Goal 5:: Patient will report ability to walk to her mailbox and back without pain to ease ADL's. Goal Time Frame: 4-6 Weeks Rehabilitation Potential Physical Therapy Diagnosis: Patient presents with hypomobility- she has decreased LE and core strength/stabilization, proprioception, flex and muscular endurance leading to increased pelvis sway and pain with ADL's. Rehabilitation Potential: Good Anticipated Interventions Patient/Client Instruction: Educate patient on: Benefits of Fitness Program Therapeutic Exercise to Include: Strength training, Endurance training, Balance training, Coordination, Agility training, Body mechanics, Postural training, Flexibilty training, Gait and locomotor training, Neuromotor development, Dynamic Lumbar Stabilization and Scapular Strength/Stabilization For the Purpose of:: To improve muscle performance and motor function TENS: Yes Cryotherapy (ice pack, ice massage): Yes Thermo therapy (hot pack): Yes Ultrasound (thermal/non thermal): Yes Text: Thank you for the opportunity to evaluate your patient. For Medicare and Medicare HMO plans, please review the plan of care and approve it. It will need to be FAXED BACK to us at [phone] for Medicare purposes. For Medicare only, by signing this I certify the plan of care. Please let me know if there are questions or concerns regarding this plan of care. Physician Signature: Date:
--- NOTE | 2023-10-04 09:25 | HP.PTDCSUM ---
Discharge Summary D/C summary: It has been my pleasure to treat DARLING ZENDEJAS referred by Dr. Devang Gomez MD, with the diagnosis of Greater Troch Bursitis of Left Hip, OA of Left Knee for a total of 10 visit(s). Discharge Date: Please see the following information for a summary of their discharge status. Subjective Subjective: PATIENT REPORTS SHE IS DOING A LOT BETTER. STATES SHE WAS ABLE TO WALK TO THE Q WITHOUT PAIN AND CAN DO HOUSEWORK WITHOUT PAIN AND NEEDING TO SIT DOWN NOW. STATES SHE PLANS TO CONTINUE THE EX'S AT [employer]. Pain Left hip: Pain Intensity (Out of 10): 0 Overall Improvement % Improvement: 80 Objective Objective/Function: PATIENT WAS SEEN TODAY FOR RE-ASSESSMENT OF PROGRESS TOWARD THE SET PT GOALS AND THE NEED FOR FURTHER PHYSICAL THERAPY VS READINESS FOR DISCHARGE. ALL GOALS HAVE BEEN MET AND SHE IS APPROPRIATE FOR AND AGREEABLE TO DISCHARGE. SHE IS EVEN ABLE TO GO UP AND DOWN STEPS RECIP WITHOUT HR. SHE REPORTS THIS HAS MADE GOING UP AND DOWN bleachers MUCH EASIER. Goals Goal 1:: Patient will report participation in home exercise program activities a minimum of 5 days per week, as adjunct to skilled physical therapy intervention in preparation for independent home management upon discharge. Goal Progress: Goal Met Goal 2:: Patient will report an increase of 9 points on the LEFS to show minimal clinical significant difference on patients functional outcome measure. Goal Progress: Goal Met Goal 3:: Patient will SLS for 30 sec with eyes open without loss of balance to ease balance and decrease risk of falls Goal Progress: Goal Met Goal 4:: Patient will descend 4+ stairs reciprocally with a single handrail without pain and good technique to demonstrate increased LE functional strength and ease community mobility. Goal Progress: Goal Met Goal 5:: Patient will report ability to walk to her mailbox and back without pain to ease ADL's. Goal Progress: Goal Met Plan Plan: Focus on LE and core strength/stabilization- Left Hip Bursitis due to pelvic translation and instability- significant glut med weakness HEP Given IE: Hawk Yun, SLS D/C Information d/c sentence: If there are questions or concerns regarding this patient's physical therapy, please feel free to call me at [phone]. Thank you for the referral of this patient. Sincerely, Kala Olson, PT, Cert MDT Balance/Gait/Functional tests Balance/Special Test Scores Lower Extremity Functional Score: 66 Improvement % Improvement: 80
== END 2023-10-04 09:58 | disposition home or self-care (01) ==
LOC: PT 09:00
PROVIDERS: PCP Family Medicine; Referring Provider Orthopaedic Surgery Sports Medicine; Visit Provider Orthopaedic Surgery Sports Medicine
DX: M17.12 Unilateral primary osteoarthritis, left knee (principal); M70.62 Trochanteric bursitis, left hip
CPT/HCPCS: 97110; 97162; 97164

== ENCOUNTER → 2024-02-09 | Outpatient (CLI) | payer MEDICARE, OTHER, SELFPAY ==
--- NOTE | 2024-02-09 09:10 | BI_ITS ---
MAMMOGRAPHY - BILATERAL SCREENING REASON FOR EXAM: Female, 68 years old. Routine annual screening examination. PERTINENT HISTORY: Non-contributory. TECHNIQUE: Digital bilateral breast ino (3D mammographic acquisition) in the CC and MLO projections. 2-D mediolateral oblique (MLO) and craniocaudad (CC) views of both breasts were obtained. CAD: Full Field Digital Mammography with Computer Added Detection was performed. COMPARISON: Comparison is made with prior study dated February 07, 2023 and February 05, 2022. FINDINGS: Breast Composition: The breasts are heterogeneously dense, which may obscure small masses. There are no dominant masses or suspicious calcifications. Stable small benign-appearing bilateral axillary lymph nodes. No other significant abnormalities are identified. There has been no significant change since the prior study. BI/SCRN MAMM (CAD)W/INO BILAT IMPRESSION: Stable bilateral screening mammogram. Yearly follow-up mammogram recommended. (A) ASSESSMENT CATEGORY: BIRADS Category 2: Benign. A letter regarding these results will be sent to the patient by the facility within 30 days. Approximately 10% of breast cancers are not detected by mammography. A normal mammogram should not delay biopsy of a clinically suspicious abnormality. [id number] Electronically Signed: Vito Weinstein MD at 11:15 EDT ,
== END | disposition home or self-care (01) ==
LOC: OPBI 09:09
PROVIDERS: PCP Family Medicine; Referring Provider Family Medicine; Visit Provider Family Medicine
DX: Z12.31 Encounter for screening mammogram for malignant neoplasm of breast (principal)
CPT/HCPCS: 77063; 77067

== ENCOUNTER → 2024-03-02 | Outpatient (CLI) | payer MEDICARE, OTHER, SELFPAY ==
[2024-03-02 10:55] LABS: Erythrocyte Sedimentation Rate 13 mm/hr (0-30)
[2024-03-02 10:57] LABS: ALB/GLOB Ratio 0.9 RATIO (0.9-2.4); AST(SGOT) 17 U/L (15-37); Absolute Lymphocyte Count 1.49 X10^3/uL (0.83-4.51); Absolute Neutrophil Count 4.7 X10^3/uL (2.0-7.7); Alanine Aminotransfer ALT/SGPT 31 U/L (13-56); Albumin, Serum 3.7 g/dL (3.2-5.0); Alkaline Phosphatase 84 U/L (45-117); Anion Gap 5 (5-15); BUN 21 mg/dL (7-18); BUN/Creat Ratio 16.9 RATIO (10-20); Basophil# 0.04 X10^3/uL; Basophil% 0.6 % (0-1); CRP 9.99 mg/L (0.0-3.0); Calcium,Total 9.3 mg/dL (8.5-10.1); Chloride 104 mmol/L (98-107); Cholesterol 219 mg/dL (200); Creatinine, Serum 1.24 mg/dL (0.55-1.02); EST Glomerular Filtration Rate 46 mL/min (>60); Eosinophil# 0.16 X10^3/uL; Eosinophils% 2.3 % (0-5); Est Glom Filt Rate - Afr Amer 55 mL/min (>60); Globulin 3.9 g/dL (2.2-4.2); Glucose 105 mg/dL (74-106); Hematocrit 38.3 % (37-47); Hemoglobin 12.6 g/dL (12.0-15.0); High Density Lipoprotein 49 mg/dL; Lymphocyte # 1.49 X10^3/ul (0.83-4.51); Mean Corp Hgb Conc 32.9 g/dL (32-36); Mean Corpuscular Hgb 29.2 pg (27.0-32.0); Mean Corpuscular Volume 88.9 fL (81-99); Mean Platelet Vol. 10.2 fl (6.2-12.0); Monocyte# 0.69 X10^3/uL; Monocyte% 9.7 % (0-10); NRBC Flagged by Analyzer 0 % (0-5); Neutrophil # 4.69 X10^3/uL (2.7-7.7); Neutrophil % 65.8 % (47-70); Platelet Count 277 K/mm3 (150-450); Potassium 4.2 mmol/L (3.5-5.1); Protein, Total 7.6 g/dL (6.4-8.2); RBC Distribution Width CV 12.8 % (11.6-14.6); RBC Distribution Width SD 41.8 fl (35.1-43.9); Red Blood Count 4.31 M/mm3 (4.2-5.4); Sodium Level 136 mmol/L (136-145); Triglycerides 139 mg/dL; Very Low Density Lipoprotein 28 mg/dL (5-40); White Blood Count 7.1 K/mm3 (4.4-11.0)
== END | disposition home or self-care (01) ==
LOC: MTLAB 08:29
PROVIDERS: PCP Family Medicine; Referring Provider Family Medicine; Visit Provider Family Medicine
DX: Z51.81 Encounter for therapeutic drug level monitoring (principal); I10 Essential (primary) hypertension; M25.50 Pain in unspecified joint; M79.10 Myalgia, unspecified site
CPT/HCPCS: 36415; 80053; 80061; 85025; 85652; 86140

== ENCOUNTER 2025-01-25 09:16 | Inpatient (IN) | payer MEDICARE, OTHER, SELFPAY ==
[2025-01-25] VITALS (24 sets, daily range): BP systolic 85–164; BP diastolic 46–93; PULSE 55–94; RESP 11–23; TEMP 35.8–36.8; O2SAT 93–99; BMI 37.5
[2025-01-25] MEDS: Aspirin 81 MG TAB.CHEW 324 MG PO (09:25)
[2025-01-25] MEDS: TICAGRELOR 90 MG TABLET 180 MG PO (09:25)
[2025-01-25] MEDS: 0.9% Normal Saline (1000mL) 1,000 ML 999 ML IV (09:25)
[2025-01-25] MEDS: Heparin Injection (Vial) 5,000 UNIT/ML VIAL 4000 UNIT IV (09:26)
[2025-01-25 09:30] LABS: Absolute Lymphocyte Count 3.37 X10^3/uL (0.83-4.51); Absolute Neutrophil Count 4.9 X10^3/uL (2.0-7.7); Basophil# 0.07 X10^3/uL; Basophil% 0.7 % (0-1); Eosinophil# 0.25 X10^3/uL; Eosinophils% 2.7 % (0-5); Hematocrit 35.2 % (37-47); Lymphocyte # 3.37 X10^3/ul (0.83-4.51); Lymphocyte % 35.8 % (19-41); Mean Corp Hgb Conc 34.1 g/dL (32-36); Mean Corpuscular Hgb 29.8 pg (27.0-32.0); Mean Corpuscular Volume 87.3 fL (81-99); Mean Platelet Vol. 9.7 fl (6.2-12.0); Monocyte% 8.5 % (0-10); NRBC Flagged by Analyzer 0 % (0-5); Neutrophil % 52.1 % (47-70); Platelet Count 316 K/mm3 (150-450); RBC Distribution Width CV 12.9 % (11.6-14.6); RBC Distribution Width SD 41.4 fl (35.1-43.9); Red Blood Count 4.03 M/mm3 (4.2-5.4); White Blood Count 9.4 K/mm3 (4.4-11.0)
--- NOTE | 2025-01-25 09:33 | ED.VIS.CHEST ---
HPI History of Present Illness Chief Complaint: Chest Pain Informant: patient Narrative Narrative: 69-year-old female history of hypertension presenting to the emergency room with chest pressure. Patient states she sat down for breakfast developed this pressure and became sweaty. She is never experienced anything like this before. She knows she is not a diabetic and does not treated for hypercholesterolemia. Non-smoker. Symptoms have been present for about 30 minutes [facility] Medical History Osteoarthritis of carpometacarpal joint of left thumb Pain of left thumb Strain of left knee Osteoarthritis of left knee Stress fracture of right foot Greater trochanteric bursitis of left hip Hyperglycemia Obesity HTN (hypertension) Chest pain Home Medications ?Medication ?Instructions ?Recorded ?Last Taken ?Type hydrochlorothiazide 25 mg tablet 25 mg PO DAILY blood pressure 10/25/17 10/25/17 07:00 History oxybutynin chloride 5 mg tablet 5 mg PO DAILY urination 10/25/17 10/25/17 07:00 History lisinopril 5 mg tablet 5 mg PO DAILY 08/31/22 Unknown History magnesium gluconate 27 mg 27 mg PO BID 08/31/22 Unknown History magnesium (500 mg) tablet (Mag-G) multivitamin 1 tab PO QAM 08/31/22 Unknown History omega 5-mzs-dnn-fish oil 300 1 cap PO DAILY 08/31/22 Unknown History mg-1,000 mg capsule (Fish Oil) calcium 600 mg (as 1 cap PO DAILY 04/28/23 Unknown History carbonate)-vitamin D3 5 mcg (200 unit) capsule omeprazole 20 mg tablet,delayed 20 mg PO DAILY 04/28/23 Unknown History release diclofenac sodium 75 mg 75 mg PO BID 03/22/24 Unknown History tablet,delayed release Allergy/AdvReac Type Severity Reaction Status Date / Time Sulfa (Sulfonamide Allergy Rash Verified 03/22/24 09:23 Antibiotics) Family History Sister Hypertension Mother CVA (cerebral vascular accident) Hypertension Surgical History History of tonsillectomy History of tubal ligation Social History Smoking Status: Never smoker alcohol intake: current alcohol intake frequency: holidays/special occasions only ROS ROS ED Constitutional Constitutional ED: Denies chills, fever(s) or weight loss Eyes Eyes: Denies change in vision or diplopia ENT ENT ED: Denies ear pain, rhinorrhea or sore throat Cardiovascular Cardiovascular: Reports chest pain; Denies orthopnea, palpitations or racing heartbeat Respiratory/Chest Respiratory/Chest: Reports dyspnea; Denies cough or orthopnea Gastrointestinal Gastrointestinal: Denies abdominal pain, diarrhea, nausea or vomiting Genitourinary Genitourinary ED: Denies dysuria, hematuria or urinary frequency Musculoskeletal Musculoskeletal: Denies arthralgias or myalgias Integumentary Reports other Details: Diaphoresis ; Denies abscess or rash Neurologic Neurologic: Denies headache(s) or weakness Psychiatric Psychiatric: Denies anxiety, depression, suicidal ideation or suicidal thoughts Endocrine Endocrinology: Denies polydipsia, polyphagia or polyuria Allergic/Immunologic Allergic/Immunologic ED: Denies mouth swelling, tongue swelling or urticaria EXAM Physical Exam Const Vital Signs: 01/25/25 09:17 01/25/25 09:17 01/25/25 09:23 Temperature 97.6 F L Temperature Source Oral Pulse Rate 55 L 65 Respiratory Rate 16 18 Respiratory Effort Normal Blood Pressure 85/46 L Blood Pressure Mean 59 Pulse Ox 98 94 Oxygen Delivery Method Room Air Room Air 01/25/25 09:23 01/25/25 09:31 01/25/25 09:33 Temperature 97.6 F L Temperature Source Pulse Rate 64 Respiratory Rate 18 18 Respiratory Effort Blood Pressure 164/89 H 164/89 H Blood Pressure Mean 114 Pulse Ox 94 94 Oxygen Delivery Method Room Air Positive well nourished, well developed and obese General Appearance ED: well developed and NAD Nutritional Appearance: obese HEENT Reports normocephalic, head/scalp atraumatic and moist mucous membranes Eyes PERRL and EOMs intact bilaterally Neck no lymphadenopathy, supple and no JVD Resp normal respiratory effort and clear to auscultation bilaterally Cardio regular rate, regular rhythm and no murmurs GI normal to inspection, nondistended, normoactive bowel sounds and non-tender Palpation: soft Back/Spine no CVA tenderness and normal ROM Extremity normal to inspection General Extremety ED: Negative for edema General Extremity: Negative for edema Neuro oriented x3 and CN's II-XII intact bilaterally Sensorium / Orientation: alert Motor Exam: strength 5/5 throughout Psych mental status grossly normal Mood & Affect: Negative for depressed or tearful Skin no rashes or lesions noted and no wounds Skin Narrative: Diaphoretic slightly pale MDM MDM MDM Narrative Medical decision making narrative: Differential diagnosis includes STEMI NSTEMI pulmonary embolism aortic dissection pneumothorax pneumonia pleural effusion CHF EKG was obtained which demonstrates large elevation 2 3 aVF as well as laterally with significant ST depression noted in V1 V2. STEMI team was activated. She received heparin Brilinta aspirin. Nitroglycerin was held. I asked that she be receiving IV fluids. Patient was taken to the [facility]. History & Record Review Discussion w/independent historian: Patient Lab Data Attestation: I reviewed the patient's lab results. Labs: Laboratory Results - last 24 hr 01/25/25 07:21 WBC 9.4 RBC 4.03 L Hgb 12.0 Hct 35.2 L MCV 87.3 MCH 29.8 MCHC 34.1 RDW Std Deviation 41.4 RDW Coeff of [place] 12.9 Plt Count 316 MPV 9.7 Immature Gran % (Auto) 0.200 Neut % (Auto) 52.1 Lymph % (Auto) 35.8 [place] % (Auto) 8.5 Eos % (Auto) 2.7 Baso % (Auto) 0.7 Absolute Neuts (auto) 4.9 Absolute Lymphs (auto) 3.37 Nucleated RBC % 0 PT 13.5 INR 1.0 APTT 25.6 Sodium 136 Potassium 4.4 Chloride 101 Carbon Dioxide 19.2 L Anion Gap 16 H BUN 22 H Creatinine 1.60 H Estim Creat Clear Calc 38.52 L Est GFR (MDRD) Non-Af 35 L BUN/Creatinine Ratio 13.8 Glucose 124 H Calcium 9.6 Troponin T High Sens 10 EKG Initial EKG: Attestation: I personally reviewed and interpreted this EKG as follows: Comments: Sinus bradycardia ventricular rate of [address] segments consistent with [facility] Management Discussion w/another healthcare provider: Packaging Clerk (Dr López) Critical Care Time Critical Care Time: Yes Critical care time (excluding procedures): Including time spent:, Discussing w/Patient &/or Family/Inpatient Care Manager Rn, Discussing w/Consultants, Arranging Admission or Transfer, Performing Direct Patient Care at Bedside and - (10 min) Discharge Plan Dx/Rx/DC Orders Clinical Impression: Chest pain, ST elevation (STEMI) myocardial infarction Disposition Disposition: Acute Care Hospital [facility]
[2025-01-25 09:46] LABS: Prothrombin Time (Protime)PT. 13.5 SECONDS (11.7-14.9)
[2025-01-25 09:48] LABS: Anion Gap 16 (5-15); BUN 22 mg/dL (4-19); BUN/Creat Ratio 13.8 RATIO (10-20); Calcium,Total 9.6 mg/dL (7.6-11.0); Carbon Dioxide 19.2 mmol/L (21.0-32.0); Chloride 101 mmol/L (98-108); EST Glomerular Filtration Rate 35 (>60); Estimated Creatinine Clearance 38.52 ml/min (50-250); Glucose 124 mg/dL (70-99); Partial Thromboplast Time 25.6 Seconds (24.1-36.2); Potassium 4.4 mmol/L (3.3-5.1); Sodium Level 136 mmol/L (133-145); Troponin T High Sensitivity 10 ng/L (<=14)
[2025-01-25 10:52] LABS: ACT Activated Clotting Time 164 sec (74-137)
--- NOTE | 2025-01-25 10:54 | CON.PCM.CA_ITS ---
Assessment & Plan Assessment/Plan (1) ST elevation (STEMI) myocardial infarction: PLAN: After obtaining informed consent, patient was taken emergently to the cardiac catheterization lab. Coronary angiography revealed subtotal occlusion of her proximal RCA with thrombus burden. Successful balloon angioplasty and stent placement was performed. Excellent results were noted. Continue aspirin lifelong. P2 Y12 inhibitor for at least 6 months. Beta- blockers. Statins. ARB. (2) Coronary artery disease: PLAN: See #1 above. (3) HTN (hypertension): QUALIFIERS: Hypertension type: essential hypertension Qualified Code(s): I10 - Essential (primary) hypertension PLAN: Beta-marquise, ARB, hydrochlorothiazide HPI Consult Data Date of Consult: 01/25/25 HPI Narrative Reason for Consultation: STEMI HPI Narrative: 69-year-old female with past medical history significant for hypertension. She presented to the emergency room with complaints of anterior chest pain that started about half an hour prior to presentation. Described it as pressure. Radiation to both arms. Positive diaphoresis. Shortness of breath. Denies any previous history of coronary artery disease. ECG done in the emergency room showed sinus bradycardia with acute inferior posterior myocardial infarction. A STEMI alert was called. [facility] Medical History Osteoarthritis of carpometacarpal joint of left thumb Pain of left thumb Strain of left knee Osteoarthritis of left knee Stress fracture of right foot Greater trochanteric bursitis of left hip Hyperglycemia Obesity HTN (hypertension) Chest pain Home Medications ?Medication ?Instructions ?Recorded ?Last Taken ?Type hydrochlorothiazide 25 mg tablet 25 mg PO DAILY blood pressure 10/25/17 10/25/17 07:00 History oxybutynin chloride 5 mg tablet 5 mg PO DAILY urinatio n 10/25/17 10/25/17 07:00 History lisinopril 5 mg tablet 5 mg PO DAILY 08/31/22 Unkno wn History magnesium gluconate 27 mg 27 mg PO BID 08/31/22 Unknow n History magnesium (500 mg) tablet (Mag-G) multivitamin 1 tab PO QAM 08/31/22 Unknow n History omega 2-hhb-hux-fish oil 300 1 cap PO DAILY 08/31/22 U nknown History mg-1,000 mg capsule (Fish Oil) calcium 600 mg (as 1 cap PO DAILY 04/28/23 Unkn own History carbonate)-vitamin D3 5 mcg (200 unit) capsule omeprazole 20 mg tablet,delayed 20 mg PO DAILY 3 Unknown History release diclofenac sodium 75 mg 75 mg PO BID 03/22/24 Unknow n History tablet,delayed release Allergy/AdvReac Type Severity Reaction Status Date / Time Sulfa (Sulfonamide Allergy Rash Verified 03/22/24 09:23 Antibiotics) Family History Sister Hypertension Mother CVA (cerebral vascular accident) Hypertension Surgical History History of tonsillectomy History of tubal ligation Social History Smoking Status: Never smoker alcohol intake: current alcohol intake frequency: holidays/special occasions only Physical Exam Narrative Comfortable. Heart sounds 1 and 2 normal. No murmurs or rubs noted. Chest clear to auscultation bilaterally. Alert oriented x 3. No ankle edema. Risk Stratification Risk Stratification Applicable: No Objective Data Vital Signs: Vital Signs Temp Pulse Resp BP Pulse Ox O2 Del Method 97.6 F L 64 18 164/89 H 94 Room Air 01/25/25 09:33 01/25/25 09:33 01/25/25 09:33 01/25/25 09:33 01/25/25 09:33 01/25/25 09:23 Oxygen Delivery Method Room Air Weight: 218 lb 11.177 oz Body Mass Index (BMI) 37.5 Lab / Micro Data 01/25/25 07:21 01/25/25 07:21 Labs: Laboratory Results - last 24 hr 01/25/25 07:21: WBC 9.4, RBC 4.03 L, Hgb 12.0, Hct 35.2 L, MCV 87.3, MCH 29.8, MCHC 34.1, RDW Std Deviation 41.4, RDW Coeff of [place] 12.9, Plt Count 316, MPV 9.7, Immature Gran % (Auto) 0.200, Neut % (Auto) 52.1, Lymph % (Auto) 35.8, [place] % (Auto) 8.5, Eos % (Auto) 2.7, Baso % (Auto) 0.7, Absolute Neuts (auto) 4.9, Absolute Lymphs (auto) 3.37, Nucleated RBC % 0, PT 13.5, INR 1.0, APTT 25.6, Sodium 136, Potassium 4.4, Chloride 101, Carbon Dioxide 19.2 L, Anion Gap 16 H, BUN 22 H, Creatinine 1.60 H, Estim Creat Clear Calc 38.52 L, Est GFR (MDRD) Non- Af 35 L, BUN/Creatinine Ratio 13.8, Glucose 124 H, Calcium 9.6, Troponin T High Sens 10 01/25/25 09:40: Activated Clotting Time 164 H Cardiology Labs/Tests 01/25/25 07:21: WBC 9.4, RBC 4.03 L, Hgb 12.0, Hct 35.2 L, MCV 87.3, MCH 29.8, MCHC 34.1, Plt Count 316, MPV 9.7, Immature Gran % (Auto) 0.200, Neut % (Auto) 52.1, Lymph % (Auto) 35.8, [place] % (Auto) 8.5, Eos % (Auto) 2.7, Baso % (Auto) 0.7, Absolute Neuts (auto) 4.9, Nucleated RBC % 0, PT 13.5, INR 1.0, APTT 25.6, Sodium 136, Potassium 4.4, Chloride 101, Carbon Dioxide 19.2 L, Anion Gap 16 H, BUN 22 H, Creatinine 1.60 H, Est GFR (MDRD) Non-Af 35 L, BUN/Creatinine Ratio 13.8, Glucose 124 H, Calcium 9.6 Rhythm: EKG: ECHO: Stress Test: Cardiac Cath: PCI: CT Surgery: Holter monitor: EPS: PPM: CXR: Chest CT Scan:
[2025-01-25 10:55] LABS: ACT Activated Clotting Time 285 sec (74-137)
[2025-01-25 10:55] LABS: ACT Activated Clotting Time 291 sec (74-137)
--- NOTE | 2025-01-25 10:57 | ECQM.STEMI ---
STEMI STEMI ED Door Time / Other REG STEMI EKG Time (1) ST elevation (STEMI) myocardial infarction: Acute ~01/25/25 09:16 Balloon/Aspiration Date-Time Date of Balloon/Aspiration:: 01/25/25 Time of Balloon/Aspiration:: 09:59
--- NOTE | 2025-01-25 11:15 | CRPHASE1_ITS ---
Patient Communication Patient Information PHII Cardiac Rehab Discussed with Patient:: Yes Guide to Cardiac Rehab Given to Patient:: Yes Cardiac Rehab Facility Choice List Given to Patient:: Yes Communication to Cardiac Rehab Choice Program [facility] CR PHII:: Communication Given to CR Certified Teacher Assistant:: Jules López Phase II Cardiac Rehab:: Yes Sessions:: 36 sessions - 3 days/wk, 12 weeks Cardiac Rehabilitation Info Program Information Cardiac Rehabilitation Program Information: Cardiac Rehab The cardiac rehab team at [facility] consists of highly skilled exercise physiologists, nurses, respiratory therapists and physicians working together with you. Our purpose is to help you have a full recovery and achieve the goals you set for yourself. Over the years many of our patients have returned to activities they assumed they would never do again! We can help restore your confidence and motivation to make lifestyle changes that can have a significant impact on your health and quality of life! We can help answer questions and concerns you may have about exercise, lifestyle, medications, diet, stress and anxiety which are common following a hospitalization. WE monitor ECG and vital signs during exercise and discuss your progress with you and report to your physician(s). Cardiac Rehab is proven to help reduce readmissions, improve functional capacity and lower recurrence of problems with your heart. Our Cardiac Rehab program is Certified by the [place] [employer]-Vascular [employer] Pulmonary [employer] (AACVPR) and Accredited by the [place] [employer] through our [facility]. You can contact us at . We invite you to call us with your questions or to get started in our program. If you have other questions or concerns be sure to ask your physician/provider during your follow-up visit. WE look forward to seeing you!
--- NOTE | 2025-01-25 11:16 | CRPH1.INSTRU ---
General Education Discussed with Patient CAD and cardiac anatomy and function:: Patient communicates acknowledgment Explanation of diagnoses and procedures:: Patient communicates acknowledgment Sign/Symptoms of VT:: Patient communicates acknowledgment Antiplatelet therapy: Patient communicates acknowledgment Proper use of NTG-SL: Patient communicates acknowledgment Emergency procedures and activation of EMS: Patient communicates acknowledgment Compliance of all prescribed medications: Patient communicates acknowledgment Dyslipidemia Risk Factors Patient Dyslipidemia Risk Factors Are:: Total Cholesterol, Triglycerides, HDL and LDL Recommendations Recommendations Include:: Lipid profile not available Response Code Dyslipidemia Response Code:: Patient communicates acknowledgment Overweight/Obesity Risk Factors Patient Overweight/Obesity Risk Factors Are:: Obesity - > or = 30 Recommendations Recommendations Include:: Weight loss of 5-10%, Reduced calorie diet and Exercise 5-7 times/week Response Code Overweight/Obesity:: Patient communicates acknowledgment and Family communicates acknowledgment Hypertension Recommendations Recommendations Include:: Maintain BP <130/85 and Decrease/maintain normal body weight Response Code Hypertension:: Patient communicates acknowledgment Diabetes Risk Factors Patient Diabetes Risk Factors Are:: No documented hx of diabetes Sedentary Risk Factors Patient Sedentary Risk Factors Are:: Lack of regular exercise Recommendations Recommendations Include:: Aerobic exercise 5-7 times/week for 20-30 minutes continuously, Benefits of regular exercise, Discussed home walking program and Monitored Outpatient Cardiac Rehab Response Code Sedentary Response Code:: Patient communicates acknowledgment
--- NOTE | 2025-01-25 11:51 | CL.I_ITS ---
Patient Name: DARLING ZENDEJAS Study Date: 01/25/2025 Performing: Jules López MD Ht: 64 inches 162.56 cm : 1955 Wt: 219 lbs 99.2 kg Age: 69 Gender: female BSA: 2.03 PROCEDURE(S) PERFORMED IC16-([id number])AMI, JAIME OR PTCA, ARTERY/GRAFT, SINGLE VESSEL DC01-([id number])LHC/COR/LV CLINICAL PROFILE AND CO-MORBIDITIES Indications: ACS <= 24 hrs Heart Failure: None Stress/Imaging Stress/Image Study Performed: No CAD Presentations: STEMI. Symptom onset Date/Time: 01/25/2025 08:30:00 Time Estimated CONCLUSIONS 99% Prox RCA LVEF 45% Successful PTCA/JAIME Prox RCA using [place] 3.0x30 mm, post-dilated using 3.25 mm balloon RECOMMENDATIONS ASA Indefinitley P2Y12 inhibitors for atleast 6 months DESCRIPTION OF PROCEDURE The patient arrived to the procedure lab. The risks and benefits of the procedure as well as a full description of our services here and lack of surgical backup were fully explained to the patient and/or their significant other prior to the catheterization. The Timeout was completed, verifying the correct patient and procedure. The patient's procedural site was prepped and draped in the usual fashion. Local anesthetic was given subcutaneously to right radial region with Lidocaine 2%. Using a modified Seldinger technique, arterial access was obtained via the right radial artery, a 6Fr sheath was inserted.. Right Coronary Artery selective angiography was then performed in multiple views using a 5 Fr. 4.0 Goodman catheter. Left Coronary Artery selective angiography was performed in multiple views using a 5 Fr. 4.0 Goodman catheter. Left Ventriculography was performed in [place] projection using a 5 Fr. Pigtail catheter. LV to AO pullback pressures were then recordedThe images were reviewed and options discussed. A decision was then made to proceed with an Intervention, IVUS or other adjunct procedure. JR 4 Guide catheter was inserted and engaged into the RCA. {L1} RUNTHROUGH Guide wire was advanced to the RCA. EMERGE 3.0 X 15 Balloon catheter was inserted. Balloon catheter was advanced across lesion in the right coronary, mid. RUNTHROUGH Guide wire was inserted as a dior wire RUNTHROUGH Guide wire was inserted as a dior wire WHISPER MS Guide wire was inserted as a dior wire PTCA balloon inflated at 6 atms for 8 secs. Angiogram performed post balloon dilatation. PTCA balloon inflated at 6 atms for 4 secs. JOELLEN FRONTIER 3.0 X 30 Drug Eluting stent was inserted. Drug Eluting stent was advanced across the lesion in the right coronary, mid. Angiogram performed post stent deployment. Angiogram performed post stent deployment. NC EMERGE Balloon catheter was inserted. Balloon catheter was inserted post stent. WHISPER Guide wire was exchanged for a RUNTHROUGH Angiogram performed post stent deployment. The arterial sheath was pulled and a TR Band was applied for hemostasis 10 ml of air CORONARY ANGIOGRAPHY DOMINANCE: Right Dominant LEFT HEART ASSESSMENT Left Ventricular Ejection Fraction: by LV Gram 45 % Elevated Left Ventricular End Diastolic Pressure LEFT MAIN: Angiographically normal LEFT ANTERIOR DESCENDING ARTERY: LAD: Tubular 40% Mid lesion in LAD CIRCUMFLEX ARTERY: Angiographically normal RIGHT CORONARY ARTERY: RCA: Complex 99% Proximal lesion in RCA INTERVENTION INFORMATION LESION SITE: RCA (Proximal) Lesion Complexity: High/C, thrombus present: Yes, culprit lesion: Yes, lesion length: 28 mm, culprit lesion: Yes Pre Stenosis: 99 % Pre intervention SHON flow: 3 PROCEDURE: Drug Eluting Stent with pre and post dilatation Post Stenosis: 0 % Post intervention SHON flow: 3 Lesion Devices: Cordis 6 Fr JR4 100cm Guide Catheter Lee Sci EMERGE MR 3.00x15 BALLOON Terumo .014 180cm Runthrough Extra Floppy straight Vickers .014 190cm HT Whisper MS Straight Medtronic 3.0 x 30 JOELLEN FRONTIER JAIME Lee Sci NC EMERGE MR 3.25x20 BALLOON Terumo .014 180cm Runthrough Extra Floppy straight COMPLICATIONS No Complications PROCEDURE MEDICATIONS Fentanyl 50 mcg IV Versed 2 mg IV Fentanyl 50 mcg IV Versed 2 mg IV Fentanyl 50 mcg IV Oxygen: 2 L/min via nasal cannula Oxygen: 4 L/min via nasal cannula Oxygen: 15 L/min via non-rebreather mask Oxygen: 3 L/min via nasal cannula Adenosine 48 mcg IC @ 01/25/2025 10:03:39 Heparin 6000 unit(s) IV 01/25/2025 09:37:21 Heparin 2000 unit(s) IV 01/25/2025 10:00:54 Nitro 200 mcg IC 01/25/2025 10:04:21 Nitro 200 mcg IC 01/25/2025 10:04:21 Nipride 50 mcg IC 01/25/2025 10:12:23 Nipride 50 mcg IC 01/25/2025 10:16:06 Nipride 100 mcg IV 01/25/2025 10:18:22 Verapamil 2.5mg, Ntg 200mcgs, given IA 01/25/2025 09:39:00 IV Fluids: .9 NaCl IV started @ 150 ml/hr 01/25/2025 09:59:24 SUMMARY OF HEMODYNAMIC DATA Time AIR REST AO 0/0 (-1) 09:36:07 AO 173/94 (129) 09:39:16 AO 125/78 (99) 10:05:34 AO 127/71 (95) 10:19:42 LV 167/8, 29 10:27:25 LV 164/8, 33 10:27:33 LV 152/42, 43 10:28:29 LV 144/39, 42 10:28:37 LVp 152/45, 47 10:28:45 LVp 158/16, 32 10:29:25 AOp 160/79 (115) 10:29:32 ECG 10:43:50 Signed By Jules López MD On 01/25/2025 11:50:23 Jules López MD
--- NOTE | 2025-01-25 12:03 | HP.PCM.HOS_ITS ---
HPI - General General Date of Admission: 01/25/25 Date of Service: 01/25/25 Chief Complaint: Chest pressure while eating breakfast today HPI Narrative DARLING ZENDEJAS, is a 69 F came to ED when she felt chest pressure, retrosternal in location with radiation to bilateral shoulder while eating breakfast. Patient states she goes to [place] 3 times a week and feels sometimes short of breath during exercise. She denies any prior history of TX or other cardiac disease. While coming to the ER she felt short of breath. She was also feeling dizzy lightheaded, diaphoresis and had near syncope symptoms. She has a history of hypertension on medication but not diabetic or dyslipidemia In ED, BP was low 85/46, heart rate 55/min, no hypoxia or tachypnea. Twelve- lead EKG was done and was significant for inferior wall STEMI at [address] elevation in inferior leads, V4-V6 with reciprocal ST depression in aVL and aVR. STEMI alert was called patient taken to [facility] immediately. [facility] Medical History Osteoarthritis of carpometacarpal joint of left thumb Pain of left thumb Strain of left knee Osteoarthritis of left knee Stress fracture of right foot Greater trochanteric bursitis of left hip Hyperglycemia Obesity HTN (hypertension) Chest pain Home Medications ?Medication ?Instructions ?Recorded ?Last Taken ?Type hydrochlorothiazide 25 mg tablet 25 mg PO DAILY blood pressure 10/25/17 10/25/17 07:00 History oxybutynin chloride 5 mg tablet 5 mg PO DAILY urinatio n 10/25/17 10/25/17 07:00 History Held on 01/25/25. Instructions: Duplicate Order lisinopril 5 mg tablet 5 mg PO DAILY 08/31/22 Unkno wn History magnesium gluconate 27 mg 27 mg PO BID 08/31/22 Unknow n History magnesium (500 mg) tablet (Mag-G) multivitamin 1 tab PO QAM 08/31/22 Unknow n History omega 3-jkj-wun-fish oil 300 1 cap PO DAILY 08/31/22 U nknown History mg-1,000 mg capsule (Fish Oil) calcium 600 mg (as 1 cap PO DAILY 04/28/23 Unkn own History carbonate)-vitamin D3 5 mcg (200 unit) capsule omeprazole 20 mg tablet,delayed 20 mg PO DAILY 3 Unknown History release diclofenac sodium 75 mg 75 mg PO BID 03/22/24 Unknow n History tablet,delayed release oxybutynin chloride 10 mg mg PO DAILY bladder 01/25/25 Unknown History tablet,extended release 24 hr Allergy/AdvReac Type Severity Reaction Status Date / Time Sulfa (Sulfonamide Allergy Rash Verified 03/22/24 09:23 Antibiotics) Family History Sister Hypertension Mother CVA (cerebral vascular accident) Hypertension Surgical History History of tonsillectomy History of tubal ligation Social History Smoking Status: Never smoker alcohol intake: current alcohol intake frequency: holidays/special occasions only ROS ROS Narrative Constitutional: Reports acute onset of fatigue and weakness. No fever. HEENT: Reports systems reviewed and no addt'l complaints, except as documented Respiratory/Chest: Non-smoker. No history of COPD. Rest as described in HPI. CVS: As described in HPI Gastrointestinal: [place] nausea. Denies coffee ground emesis, hematemesis or vomiting Genitourinary: Denies burning urination or new urinary tract symptoms Musculoskeletal: Chronic bilateral hip arthritis. Denies acute joint pain or limited range of motion. No acute injury Neurologic: Denies seizure-like symptoms. skin: No ulcer. No rash Endocrinology: Reports systems reviewed and no addt'l complaints, except as documented Hematologic/Lymphatic: Reports systems reviewed and no addt'l complaints, except as documented Rest 14 ROS are negative except as mentioned in HPI Vital Signs Vital Signs Vital Signs: 01/25/25 09:17 01/25/25 09:17 01/25/25 09:23 Temperature 97.6 F L Temperature Source Oral Pulse Rate 55 L 65 Respiratory Rate 16 18 Respiratory Effort Normal Blood Pressure 85/46 L Blood Pressure Mean 59 Blood Pressure Source Blood Pressure Position Blood Pressure Location Pulse Ox 98 94 Oxygen Delivery Method Room Air Room Air 01/25/25 09:23 01/25/25 09:31 01/25/25 09:33 Temperature 97.6 F L Temperature Source Pulse Rate 64 Respiratory Rate 18 18 Respiratory Effort Blood Pressure 164/89 H 164/89 H Blood Pressure Mean 114 Blood Pressure Source Blood Pressure Position Blood Pressure Location Pulse Ox 94 94 Oxygen Delivery Method Room Air 01/25/25 11:00 01/25/25 11:00 01/25/25 11:15 Temperature 96.5 F L 96.5 F L Temperature Source Temporal Temporal Pulse Rate 77 77 76 Respiratory Rate 11 L 11 L 15 Respiratory Effort Blood Pressure 150/70 H 150/70 H 144/92 H Blood Pressure Mean 96 96 109 Blood Pressure Source Monitor Monitor Monitor Blood Pressure Position Semi-Fowlers Semi-Fowlers Semi-Fowlers Blood Pressure Location Left Arm Left Arm Left Arm Pulse Ox 97 97 97 Oxygen Delivery Method Room Air Room Air Room Air 01/25/25 11:30 01/25/25 11:45 Temperature Temperature Source Pulse Rate 80 77 Respiratory Rate 16 16 Respiratory Effort Blood Pressure 157/72 H 156/69 H Blood Pressure Mean 100 98 Blood Pressure Source Monitor Monitor Blood Pressure Position Semi-Fowlers Semi-Fowlers Blood Pressure Location Left Arm Left Arm Pulse Ox 97 97 Oxygen Delivery Method Room Air Room Air Weight Weight: 222 lb Body Mass Index (BMI) 37.5 Physical Exam Narrative General: Alert, Oriented x3, Cooperative HEENT: Atraumatic, PERRLA, EOMI, Normocephalic Oral: Oral mucosa moist. No Gingival or Mucosal Lesions/ Ulcerations Neck: Supple, No JVD, Negative Carotid Bruits Chest wall/Lungs: Air entry diminished in bilateral lung bases. No crepitation/rhonchi Cardiovascular: Regular rate, Regular Rhythm, Normal S1, Normal S2, No M/G/R Abdomen: Bowel Sounds Present, Soft, Non Tender, Non-Distended : No dysuria. No renal angle tenderness. No suprapubic tenderness. Extremities: No edema, Capillary Refill Less than 3 Seconds Skin: Right wrist with wristband for hemostatis for cath access site. Mild purplish color of the fingers and hand Musculoskeletal: No Tenderness to Palpation of Joints or Extremities ROM intact Neurological: Cranial nerves II-XII grossly intact, DTR 2+/4. No acute focal neurological deficit. Psych/Mental Status: Normal Affect, Appropriate. Results Lab / Micro Data 01/25/25 07:21 01/25/25 07:21 Labs: Laboratory Results - last 24 hr 01/25/25 07:21: WBC 9.4, RBC 4.03 L, Hgb 12.0, Hct 35.2 L, MCV 87.3, MCH 29.8, MCHC 34.1, RDW Std Deviation 41.4, RDW Coeff of Elizabeth 12.9, Plt Count 316, MPV 9.7, Immature Gran % (Auto) 0.200, Neut % (Auto) 52.1, Lymph % (Auto) 35.8, [place] % (Auto) 8.5, Eos % (Auto) 2.7, Baso % (Auto) 0.7, Absolute Neuts (auto) 4.9, Absolute Lymphs (auto) 3.37, Nucleated RBC % 0, PT 13.5, INR 1.0, APTT 25.6, Sodium 136, Potassium 4.4, Chloride 101, Carbon Dioxide 19.2 L, Anion Gap 16 H, BUN 22 H, Creatinine 1.60 H, Estim Creat Clear Calc 38.52 L, Est GFR (MDRD) Non- Af 35 L, BUN/Creatinine Ratio 13.8, Glucose 124 H, Calcium 9.6, Troponin T High Sens 10 01/25/25 09:40: Activated Clotting Time 164 H 01/25/25 11:28: Activated Clotting Time 291 H 01/25/25 11:34: Activated Clotting Time 285 H Assessment & Plan Assessment/Plan (1) ST elevation (STEMI) myocardial infarction: PLAN: Plan This is a 69 old female being admitted for management of inferior wall STEMI 1. Inferior wall STEMI: Repeat EKG after PCI still shows ST elevation inferior and ST depression in aVL and aVR suggestive of inferior posterior wall STEMI. Patient is being admitted in ICU. Coronary angiogram revealed subtotal occlusion of proximal RCA with thrombus burden. Successful balloon angioplasty and stent placement was performed. Aspirin lifelong. Brilinta/P2 Y12 currently 6 months. Beta-marquise, losartan and statin. TSH and fasting for tomorrow AM. 2D echo ordered 2. Hypertension: Patient had low blood pressure and bradycardia due to inferior wall STEMI. Most recent BP is elevated 156/66. Heart rate 77/min. Monitor heart. Patient on HCTZ and losartan. 3. ASHKAN on CKD 3A: Patient baseline creatinine is between 1.12-1.24, last February 2024. Currently 1.6. 4. Hyperglycemia: Patient history of hyperglycemia, glucose 124 in BMP. A1c ordered for tomorrow a.m. 5. Other chronic comorbidities include osteoarthritis of left knee and hip and left thumb. PT and OT ordered. 6. Obesity grade 3: BMI 37.5 kg/m?. Weight loss nutrition advised. Senior Writer consult. Living will/advanced directive/end of life care: Patient does have living will or advanced directive. Her daughter is power of traffic law attorney for health. After discussion of benefits/risks procedures involved with full code, DNR CC arrest and DNR CC, the patient opted for full code but does not want to prolong resuscitation procedure for long time or want to be in vegetative state. Patient does want artificial life support including intubation, tube feed, ventilator and/chest compression, central venous catheter, vasopressor and DC shock if needed Total time spent in [id number] encounter in discussion of advanced directive 17 minutes. Laboratory Results 01/25/25 07:21: WBC 9.4, RBC 4.03 L, Hgb 12.0, Hct 35.2 L, MCV 87.3, MCH 29.8, MCHC 34.1, RDW Std Deviation 41.4, RDW Coeff of Elizabeth 12.9, Plt Count 316, MPV 9.7, Immature Gran % (Auto) 0.200, Neut % (Auto) 52.1, Lymph % (Auto) 35.8, [place] % (Auto) 8.5, Eos % (Auto) 2.7, Baso % (Auto) 0.7, Absolute Neuts (auto) 4.9, Absolute Lymphs (auto) 3.37, Nucleated RBC % 0, PT 13.5, INR 1.0, APTT 25.6, Sodium 136, Potassium 4.4, Chloride 101, Carbon Dioxide 19.2 L, Anion Gap 16 H, BUN 22 H, Creatinine 1.60 H, Estim Creat Clear Calc 38.52 L, Est GFR (MDRD) Non- Af 35 L, BUN/Creatinine Ratio 13.8, Glucose 124 H, Calcium 9.6, Troponin T High Sens 10 01/25/25 09:40: Activated Clotting Time 164 H 01/25/25 11:28: Activated Clotting Time 291 H 01/25/25 11:34: Activated Clotting Time 285 H Charges/Coding Visit Charges Inpatient E&M: 87093 Init Hosp L3 Procedures Hospitalists Procedures: 64202 Advncd Care Plan 30 Min
[2025-01-25] MEDS: 0.9% Normal Saline (1000mL) 1,000 ML 100 ML IV (12:10)
--- NOTE | 2025-01-25 12:27 | NURSING ---
1225 computer lab para professional at bs to assess. Holding pressing on the hand at this time. Hemotoma noted distally to the band. Hand purple, warm 1228 2 more laboratory apparatus glass blower RN at bs 1230 R hand IV taken out
[2025-01-25] MEDS: Losartan Potassium 25 MG Tablet PO (12:44)
[2025-01-25] MEDS: Atorvastatin Calcium 80 MG Tablet PO (12:44)
[2025-01-25] MEDS: Furosemide 40 MG/4 ML Vial IV (12:48)
[2025-01-25] MEDS: 0.9% Saline Lock 10 ML Syringe IV ×2 (12:53→14:35)
[2025-01-25] MEDS: Ondansetron 4 MG/2 ML Vial IV (14:35)
[2025-01-25] MEDS: Acetaminophen 325 MG Tablet 650 MG PO ×2 (14:44→20:55)
[2025-01-25] MEDS: Carvedilol 3.125 MG TABLET PO (20:55)
[2025-01-25] MEDS: TICAGRELOR 90 MG TABLET PO (21:38)
[2025-01-26] VITALS (16 sets, daily range): BP systolic 114–145; BP diastolic 52–70; PULSE 64–79; RESP 12–20; TEMP 36.3–36.9; O2SAT 91–98; BMI 37.7
[2025-01-26 05:01] LABS: Hematocrit 32.1 % (37-47); Hemoglobin 10.8 g/dL (12.0-15.0); Mean Corp Hgb Conc 33.6 g/dL (32-36); Mean Corpuscular Hgb 29.4 pg (27.0-32.0); Mean Corpuscular Volume 87.5 fL (81-99); Mean Platelet Vol. 9.5 fl (6.2-12.0); Platelet Count 237 K/mm3 (150-450); RBC Distribution Width CV 13.1 % (11.6-14.6); RBC Distribution Width SD 42.1 fl (35.1-43.9); Red Blood Count 3.67 M/mm3 (4.2-5.4); White Blood Count 10.6 K/mm3 (4.4-11.0)
[2025-01-26 05:31] LABS: ALB/GLOB Ratio 1.6 RATIO (0.9-2.4); AST(SGOT) 196 U/L (<=31); Alanine Aminotransfer ALT/SGPT 42 U/L (<=34); Alkaline Phosphatase 71 U/L (35-104); Anion Gap 14 (5-15); BUN 19 mg/dL (4-19); BUN/Creat Ratio 14.5 RATIO (10-20); Calcium,Total 9.2 mg/dL (7.6-11.0); Carbon Dioxide 21.4 mmol/L (21.0-32.0); Chloride 99 mmol/L (98-108); EST Glomerular Filtration Rate 45 (>60); Estimated Creatinine Clearance 47.96 ml/min (50-250); Globulin 2.5 g/dL (2.2-4.2); Glucose 111 mg/dL (70-99); Potassium 3.7 mmol/L (3.3-5.1); Protein, Total 6.5 g/dL (5.9-8.4); Sodium Level 134 mmol/L (133-145); Total Bilirubin 0.45 mg/dL (0.00-1.30)
[2025-01-26 05:56] LABS: Hemoglobin A1c 5.8 % (<=5.6)
[2025-01-26 07:13] LABS: Cholesterol 211 mg/dL (<=200); High Density Lipoprotein 50 mg/dL; Low Density Lipoprotein Calc. 144 mg/dL; Triglycerides 84 mg/dL; Very Low Density Lipoprotein 17 mg/dL (5-40)
--- NOTE | 2025-01-26 09:05 | PN.HOSP_ITS ---
Reason for Visit Reason for Visit: Diagnoses Essential (primary) hypertension (01/25/25) ST elevation (STEMI) myocardial infarction of unspecified site (01/25/25) Atherosclerotic heart disease of [place] coronary artery without angina pectoris (01/25/25) Objective Data Objective Data Vital Signs: Vital Signs Temp Pulse Resp BP Pulse Ox O2 Del Method 98.2 F 78 16 122/70 H 97 Room Air 01/26/25 04:00 01/26/25 07:00 01/26/25 07:00 01/26/25 07:00 01/26/25 07:00 01/26/25 07:00 Oxygen Delivery Method Room Air Weight: 223 lb 6.4 oz Body Mass Index (BMI) 37.7 Intake & Output: Intake and Output for Last 24 Hours 01/24/25 01/25/25 01/26/25 23:59 23:59 23:59 Intake Total 1480 / 1480 Output Total 1400 / 1400 Balance 80 / 80 Lab / Micro Data 01/26/25 04:50 01/26/25 04:50 Labs: Laboratory Results - last 24 hr 01/25/25 07:21: WBC 9.4, RBC 4.03 L, Hgb 12.0, Hct 35.2 L, MCV 87.3, MCH 29.8, MCHC 34.1, RDW Std Deviation 41.4, RDW Coeff of Elizabeth 12.9, Plt Count 316, MPV 9.7, Immature Gran % (Auto) 0.200, Neut % (Auto) 52.1, Lymph % (Auto) 35.8, [place] % (Auto) 8.5, Eos % (Auto) 2.7, Baso % (Auto) 0.7, Absolute Neuts (auto) 4.9, Absolute Lymphs (auto) 3.37, Nucleated RBC % 0, PT 13.5, INR 1.0, APTT 25.6, Sodium 136, Potassium 4.4, Chloride 101, Carbon Dioxide 19.2 L, Anion Gap 16 H, BUN 22 H, Creatinine 1.60 H, Estim Creat Clear Calc 38.52 L, Est GFR (MDRD) Non- Af 35 L, BUN/Creatinine Ratio 13.8, Glucose 124 H, Calcium 9.6, Troponin T High Sens 10 01/25/25 09:40: Activated Clotting Time 164 H 01/25/25 11:28: Activated Clotting Time 291 H 01/25/25 11:34: Activated Clotting Time 285 H 01/26/25 04:50: WBC 10.6, RBC 3.67 L, Hgb 10.8 L, Hct 32.1 L, MCV 87.5, MCH 29.4, MCHC 33.6, RDW Std Deviation 42.1, RDW Coeff of Elizabeth 13.1, Plt Count 237, MPV 9.5, Sodium 134, Potassium 3.7, Chloride 99, Carbon Dioxide 21.4, Anion Gap 14, BUN 19, Creatinine 1.30 H, Estim Creat Clear Calc 47.96 L, Est GFR (MDRD) Non-Af 45 L, BUN/Creatinine Ratio 14.5, Glucose 111 H, Hemoglobin A1c 5.8, Calcium 9.2, Total Bilirubin 0.45, AST 196 H, ALT 42 H, Alkaline Phosphatase 71, Total Protein 6.5, Albumin 4.0, Globulin 2.5, Albumin/Globulin Ratio 1.6, Triglycerides 84, Cholesterol 211 H, LDL Cholesterol, Calc 144, VLDL Cholesterol 17, HDL Cholesterol 50, Cholesterol/HDL Ratio 4.20, TSH 1.760 Physical Exam Narrative No acute arrhythmia events on the monitor. Sinus rhythm. Denies palpitation chest pain or shortness of breath Physical exam: General: Alert, Oriented x3, Cooperative HEENT: Atraumatic, PERRLA, EOMI, Normocephalic Oral: Oral mucosa moist. No Gingival or Mucosal Lesions/ Ulcerations Neck: Supple, No JVD, Negative Carotid Bruits Chest wall/Lungs: Air entry diminished in bilateral lung bases. No crepitation/rhonchi Cardiovascular: Regular rate, Regular Rhythm, Normal S1, Normal S2, No M/G/R Abdomen: Bowel Sounds Present, Soft, Non Tender, Non-Distended : No dysuria. No renal angle tenderness. No suprapubic tenderness. Extremities: No edema, Capillary Refill Less than 3 Seconds Skin: Mild subcutaneous bruise over right wrist and hand along radial artery distribution. No hematoma. Musculoskeletal: No Tenderness to Palpation of Joints or Extremities ROM intact Neurological: Cranial nerves II-XII grossly intact, DTR 2+/4. No acute focal neurological deficit. Psych/Mental Status: Normal Affect, Appropriate. Assessment & Plan Assessment/Plan (1) ST elevation (STEMI) myocardial infarction: PLAN: Plan This is a 69 old female being admitted for management of inferior wall STEMI 1. Inferior wall STEMI: Repeat EKG after PCI still shows ST elevation inferior and ST depression in aVL and aVR suggestive of inferior posterior wall STEMI. Patient is being admitted in ICU. Coronary angiogram revealed subtotal occlusion of proximal RCA with thrombus burden. Successful balloon angioplasty and stent placement was performed. Aspirin lifelong. Brilinta/P2 Y12 currently 6 months. Beta-marquise, losartan and statin. 01/26: 2D echo shows EF 55 to 60% stage I diastolic dysfunction. Mild valvular abnormality as mentioned below.. TSH normal. Fasting profile shows LDL 144, elevated goal should be less than 100 and ideally less than 70. Total cholesterol 211. A1c 5.8%. Yesterday, discussed with the rerolling machine operator no need for repeating troponin as patient had a STEMI and the STEMI protocol with cath was done as mentioned above 2. Hypertension: Patient had low blood pressure and bradycardia due to inferior wall STEMI. Most recent BP is elevated 156/66. Heart rate 77/min. Monitor heart. Patient on HCTZ and losartan. 01/26: Blood pressure elevated. Losartan and HCTZ resumed 3. ASHKAN on CKD 3A: Patient baseline creatinine is between 1.12-1.24, last February 2024. Currently 1.6. 4. Hyperglycemia: Patient history of hyperglycemia, glucose 124 in BMP. A1c 5.8% suggestive of prediabetic 5. Other chronic comorbidities include osteoarthritis of left knee and hip and left thumb. PT and OT ordered. 6. Obesity grade 3: BMI 37.5 kg/m?. Weight loss nutrition advised. Organisation And Methods Analyst consult. Living will/advanced directive/end of life care: Patient does have living will or advanced directive. Her daughter is power of trial attorney for health. After discussion of benefits/risks procedures involved with full code, DNR CC arrest and DNR CC, the patient opted for full code but does not want to prolong resuscitation procedure for long time or want to be in vegetative state. Patient does want artificial life support including intubation, tube feed, ventilator and/chest compression, central venous catheter, vasopressor and DC shock if needed Interpretation Summary Severe inferior and posterior hypokinesis. Estimated LVEF 55 to 60%. Stage I diastolic dysfunction. The left atrium is moderately enlarged. Mild to moderate mitral valve regurgitation. Mild tricuspid valve insufficiency. Right ventricular systolic pressure estimated to be 40 mmHg. Mild (1+) pulmonic valve insufficiency. Laboratory Results 01/26/25 04:50: WBC 10.6, RBC 3.67 L, Hgb 10.8 L, Hct 32.1 L, MCV 87.5, MCH 29.4, MCHC 33.6, RDW Std Deviation 42.1, RDW Coeff of Elizabeth 13.1, Plt Count 237, MPV 9.5, Sodium 134, Potassium 3.7, Chloride 99, Carbon Dioxide 21.4, Anion Gap 14, BUN 19, Creatinine 1.30 H, Estim Creat Clear Calc 47.96 L, Est GFR (MDRD) Non-Af 45 L, BUN/Creatinine Ratio 14.5, Glucose 111 H, Hemoglobin A1c 5.8, Calcium 9.2, Total Bilirubin 0.45, AST 196 H, ALT 42 H, Alkaline Phosphatase 71, Total Protein 6.5, Albumin 4.0, Globulin 2.5, Albumin/Globulin Ratio 1.6, Triglycerides 84, Cholesterol 211 H, LDL Cholesterol, Calc 144, VLDL Cholesterol 17, HDL Cholesterol 50, Cholesterol/HDL Ratio 4.20, TSH 1.760 Charges/Coding Visit Charges Inpatient E&M: 14837 Subs Hosp L2
[2025-01-26] MEDS: Aspirin E.C. 81 MG Tablet PO (10:17)
[2025-01-26] MEDS: Pantoprazole Sodium 20 MG Tablet PO (10:18)
[2025-01-26] MEDS: Losartan Potassium 25 MG Tablet PO (10:18)
[2025-01-26] MEDS: Carvedilol 3.125 MG TABLET PO ×2 (10:18→21:26)
[2025-01-26] MEDS: Tolterodine Tartrate 2 MG CAP.SA PO (10:18)
--- NOTE | 2025-01-26 10:25 | PCM.PN.CARD ---
Subjective Subjective Denies any complaints today. Chest pain completely resolved. No shortness of breath. Objective Data Vital Signs: Vital Signs Temp Pulse Resp BP Pulse Ox O2 Del Method 98.2 F 68 13 137/59 H 94 Room Air 01/26/25 04:00 01/26/25 09:00 01/26/25 09:00 01/26/25 09:00 01/26/25 09:00 01/26/25 09:00 Oxygen Delivery Method Room Air Weight: 223 lb 6.4 oz Body Mass Index (BMI) 37.7 Intake & Output: Intake and Output for Last 24 Hours 01/24/25 01/25/25 01/26/25 23:59 23:59 23:59 Intake Total 1480 / 1480 Output Total 1400 / 1400 Balance 80 / 80 Lab / Micro Data Attestation: I reviewed the patient's lab results. 01/26/25 04:50 01/26/25 04:50 Labs: Laboratory Results - last 24 hr 01/25/25 09:40: Activated Clotting Time 164 H 01/25/25 11:28: Activated Clotting Time 291 H 01/25/25 11:34: Activated Clotting Time 285 H 01/26/25 04:50: WBC 10.6, RBC 3.67 L, Hgb 10.8 L, Hct 32.1 L, MCV 87.5, MCH 29.4, MCHC 33.6, RDW Std Deviation 42.1, RDW Coeff of Elizabeth 13.1, Plt Count 237, MPV 9.5, Sodium 134, Potassium 3.7, Chloride 99, Carbon Dioxide 21.4, Anion Gap 14, BUN 19, Creatinine 1.30 H, Estim Creat Clear Calc 47.96 L, Est GFR (MDRD) Non-Af 45 L, BUN/Creatinine Ratio 14.5, Glucose 111 H, Hemoglobin A1c 5.8, Calcium 9.2, Total Bilirubin 0.45, AST 196 H, ALT 42 H, Alkaline Phosphatase 71, Total Protein 6.5, Albumin 4.0, Globulin 2.5, Albumin/Globulin Ratio 1.6, Triglycerides 84, Cholesterol 211 H, LDL Cholesterol, Calc 144, VLDL Cholesterol 17, HDL Cholesterol 50, Cholesterol/HDL Ratio 4.20, TSH 1.760 Rhythm Strip Rhythm Strip: Sinus Rhythm Cardiology Labs/Tests 01/26/25 04:50: WBC 10.6, RBC 3.67 L, Hgb 10.8 L, Hct 32.1 L, MCV 87.5, MCH 29.4, MCHC 33.6, Plt Count 237, MPV 9.5, Sodium 134, Potassium 3.7, Chloride 99, Carbon Dioxide 21.4, Anion Gap 14, BUN 19, Creatinine 1.30 H, Est GFR (MDRD) Non-Af 45 L, BUN/Creatinine Ratio 14.5, Glucose 111 H, Hemoglobin A1c 5.8, Calcium 9.2, Total Bilirubin 0.45, Triglycerides 84, Cholesterol 211 H, VLDL Cholesterol 17, HDL Cholesterol 50, Cholesterol/HDL Ratio 4.20 Rhythm: EKG: Sinus rhythm. ST segments resolved. ECHO: Stress Test: Cardiac Cath: PCI: CT Surgery: Holter monitor: EPS: PPM: CXR: Chest CT Scan: Physical Exam Narrative Comfortable. No apparent distress. Heart sounds 1 and 2 noted. No murmurs or rubs noted. Chest clear to auscultation bilaterally. Alert oriented x 3. No ankle edema. Right radial pulse 2+. Mild ecchymosis of the right thumb and thenar eminence. Fingertips pink with good capillary refill. Assessment & Plan Assessment/Plan (1) ST elevation (STEMI) myocardial infarction: PLAN: Status post drug-eluting stent to the proximal RCA. Continue aspirin. Change from ticagrelor to clopidogrel. Beta-blockers. Statins. (2) Coronary artery disease: PLAN: See #1 above. (3) HTN (hypertension): QUALIFIERS: Hypertension type: essential hypertension Qualified Code(s): I10 - Essential (primary) hypertension PLAN: Beta-marquise, ARB, hydrochlorothiazide (4) Dyslipidemia: PLAN: Atorvastatin. PLAN: Plan Discharge home tomorrow morning if continues to be stable.
--- NOTE | 2025-01-26 10:54 | ECHOD_ITS ---
Reason For Study Reason For Study: STEMI Procedure This was a 2D Doppler, Color Flow transthoracic echocardiogram. Unable to perform bubble study; no IV access. Exam performed portable in ICU/CCU. Left Ventricle Normal size and thickness. Severe inferior and posterior hypokinesis. Estimated LVEF 55 to 60%. Stage I diastolic dysfunction. Right Ventricle Normal right ventricle. Atria The left atrium is moderately enlarged. Normal right atrium. Mitral Valve Mild to moderate mitral valve regurgitation. Tricuspid Valve Mild tricuspid valve insufficiency. Right ventricular systolic pressure estimated to be 40 mmHg. Aortic Valve Trisinus/trileaflet aortic valve. Pulmonic Valve Mild (1+) pulmonic valve insufficiency. Great Vessels Normal sized aortic root. Pericardium/Pleural No pericardial effusion. MMode/2D Measurements & Calculations LVIDd: 4.5 cm IVSd: 1.1 cm Ao root diam: 2.8 cm LVIDs: 2.8 cm LVPWd: 0.99 cm RVDd: 3.0 cm FS: 36.9 % LAV(MOD-bp): 32.7 ml LVAd ap4: 26.8 cm2 SV(MOD-sp4): 44.5 ml LAV(MOD-bp) Indexed: 16.0 ml/m2 LVLd ap4: 7.6 cm SI(MOD-sp4): 21.7 ml/m2 LAV(MOD-sp2): 27.4 ml EDV(MOD-sp4): 77.7 ml LAV(MOD-sp4): 36.2 ml EDV(sp4-el): 80.1 ml LVAs ap4: 15.5 cm2 LVLs ap4: 6.2 cm ESV(MOD-sp4): 33.2 ml ESV(sp4-el): 32.9 ml EF(MOD-sp4): 57.2 % EF(sp4-el): 58.9 % SV(sp4-el): 47.2 ml LA A4 area: 15.4 cm2 LA dimension(2D): 4.5 cm RA A4 area: 10.4 cm2 TAPSE: 1.4 cm Time Measurements MV dec time: 0.28 sec Doppler Measurements & Calculations MV E max justus: 92.9 cm/sec Lat Peak E' Justus: 10.6 cm/sec Med Peak E' Justus: 8.0 cm/sec MV A max justus: 115.8 cm/sec E/E' lat: 8.7 E/E' med: 11.6 MV E/A: 0.80 Ao V2 max: 157.0 cm/sec LV V1 max: 126.3 cm/sec MV dec slope: 332.1 cm/sec2 Ao max P.9 mmHg LV V1 max P.4 mmHg Ao V2 mean: 103.7 cm/sec Ao mean P.9 mmHg Ao V2 VTI: 32.8 cm PA V2 max: 88.5 cm/sec PI end-d justus: 107.7 cm/sec TR max justus: 252.0 cm/sec TR max P.4 mmHg ECHO/Echo Complete Interpretation Summary Severe inferior and posterior hypokinesis. Estimated LVEF 55 to 60%. Stage I di astolic dysfunction. The left atrium is moderately enlarged. Mild to moderate mitral valve regurgitation. Mild tricuspid valve insufficiency. Right ventricular systolic pressure estimated to be 40 mmHg. Mild (1+) pulmonic valve insufficiency. Ordering Physician: Jules López Referring Physician: Princess Brantley Performed By: Elsa Coburn, JARRED, RVT
--- NOTE | 2025-01-26 11:01 | CASEMGMT ---
COLLETTE ROBERTSON Assessment: Face to Face with pt for initial transition planning/care coordination assessment. COLLETTE ROBERTSON introduced self and role at [facility], pt voices understanding and consents to assessment. Pt is A&O x4 and answers all questions appropriately at this time. Pt sitting up in bed in no distress. Care providers, pharmacy, and demographics verified/updated. Strata: 1 Admitting Dx: Chest pain PCP: Fercho Specialists: Denies Preferred Pharmacy: [facility] Insurance: [facility], MMO Prescription Benefit: yes LNOK: Son, Amrik; Daughter, Cira Living Arrangements: Pt lives alone in a 1 level home with 3-4 steps to enter. ADLs: Pt states I at baseline with ADLs and IADLs. Transportation: Pt drives self and denies concerns with transportation. DME: [employer] HHC/SNF: Denies hx of. Pt states no concerns with going home at time of dc. Pt states no further concerns/needs. CM to follow. Advised pt to ask CM if any further question/concerns/needs arise, voices understanding. Pt Goal: Home Plan: Home, discussed Brilinta medication with hospitalist. He intends to order Plavix at time of DC. Dong MURDOCK CM
[2025-01-26] MEDS: Enoxaparin 40 MG/0.4 ML Syringe SC (11:35)
[2025-01-26] MEDS: TICAGRELOR 90 MG TABLET PO (11:35)
[2025-01-26] MEDS: Clopidogrel Bisulfate 300 MG Tablet PO (15:57)
[2025-01-26] MEDS: Atorvastatin Calcium 80 MG Tablet PO (20:03)
[2025-01-27 04:24] VITALS: BP 115/53; PULSE 81; RESP 16; TEMP 36.9; O2SAT 94
[2025-01-27 05:54] VITALS: BMI 36.5
--- NOTE | 2025-01-27 09:25 | EKG12_ITS ---
Test Reason : ROUTINE Blood Pressure : */* mmHG Vent. Rate : 84 BPM Atrial Rate : 84 BPM P-R Int : 146 ms QRS Dur : 98 ms QT Int : 398 ms P-R-T Axes : 64 -18 -59 degrees QTcB Int : 470 ms Normal sinus rhythm Inferior infarct , age undetermined ST & T wave abnormality, consider anterolateral ischemia Abnormal ECG When compared with ECG of 26-Jan-2025 05:13, MANUAL COMPARISON REQUIRED DATA IS UNCONFIRMED Confirmed by Tadeo Jacobs ([id number]), senior editor FLORA LANDEROS ([id number]) on 01/28/2025 1:05:27 PM Referred By: Jules López Confirmed By: Tadeo Jacobs
--- NOTE | 2025-01-27 10:46 | PCM.PN.CARD ---
Subjective Subjective Denies any complaints. No chest pain or shortness of breath. Ambulating. Objective Data Vital Signs: Vital Signs Temp Pulse Resp BP Pulse Ox O2 Del Method 98.5 F 81 16 115/53 L 94 Room Air 01/27/25 04:24 01/27/25 04:24 01/27/25 04:24 01/27/25 04:24 01/27/25 04:24 01/27/25 04:30 Oxygen Delivery Method Room Air Weight: 216 lb 7.903 oz Body Mass Index (BMI) 36.5 Intake & Output: Intake and Output for Last 24 Hours 01/25/25 01/26/25 01/28/25 23:59 23:59 00:59 Intake Total 1480 / 1480 2550 / 2550 Output Total 1400 / 1400 Balance 80 / 80 2550 / 2550 Lab / Micro Data Attestation: I reviewed the patient's lab results. 01/26/25 04:50 01/26/25 04:50 Rhythm Strip Rhythm Strip: Sinus Rhythm Cardiology Labs/Tests Rhythm: EKG: ECHO: Stress Test: Cardiac Cath: PCI: CT Surgery: Holter monitor: EPS: PPM: CXR: Chest CT Scan: Radiography Diagnostic Testing: Radiology Impression Echocardiogram 01/26/25 10:54 Interpretation Summary Severe inferior and posterior hypokinesis. Estimated LVEF 55 to 60%. Stage I diastolic dysfunction. The left atrium is moderately enlarged. Mild to moderate mitral valve regurgitation. Mild tricuspid valve insufficiency. Right ventricular systolic pressure estimated to be 40 mmHg. Mild (1+) pulmonic valve insufficiency. Ordering Physician: Jules López Referring Physician: Princess Brantley Performed By: Elsa Coburn, JARRED, RVT Physical Exam Narrative Comfortable. No apparent distress. Heart sounds 1 and 2 noted. No murmurs or rubs noted. Chest clear to auscultation bilaterally. Alert oriented x 3. No ankle edema. Right radial pulse 2+. Assessment & Plan Assessment/Plan (1) ST elevation (STEMI) myocardial infarction: PLAN: Status post drug-eluting stent to the proximal RCA. Continue aspirin. Change from ticagrelor to clopidogrel. Beta-blockers. Statins. (2) Coronary artery disease: PLAN: See #1 above. (3) HTN (hypertension): QUALIFIERS: Hypertension type: essential hypertension Qualified Code(s): I10 - Essential (primary) hypertension PLAN: Beta-marquise, ARB, hydrochlorothiazide (4) Dyslipidemia: PLAN: Atorvastatin. PLAN: Plan Okay to discharge home today from a cardiology standpoint. Follow-up in the office in 2 to 4 weeks.
--- NOTE | 2025-01-27 10:49 | DCINST_ITS ---
Discharge Instructions Diet Discharge Diet: Low fat / Low cholesterol, 1800 Calorie Control Diet and 2000 mg Sodium Diet DC O2, CPAP, BIPAP needs Home O2 Discharge instructions: No Dressing / Incision Discharge Activity: Return to Normal Activity Weight Bearing Status: Weight bearing as tolerated Dressing / Incision Call your doctor if you observe: Fever of 101 or Higher, Coldness, Increased Pain, Numbness or Tingling, Change in Color, Inability to urinate, Inability to have a bowel movement, Shortness of breath, Dizziness, Fainting spells, Swelling in the ankles, Chest pain, Prolonged hiccupping, Increased palpitations (irregular heartbeat) and Calf discomfort Follow Up Care When: IN 2 WEEKS Test Results: Test results from this visit will be discussed in further detail at your follow- up appointment, if applicable. Discharge Plan Admission Admit Date/Time: 01/25/25 12:05 Primary Reason for Your Visit: norma wall STEMI Attending Provider: Jared Vitale Primary Care Provider: Princess Brantley Consulting Providers: Jules López Discharge Orders/Prescriptions Prescriptions: New aspirin 81 mg Tablet,Delayed Release (Dr/Ec) 81 mg PO DAILY@0800 30 Days Qty: 30 2RF atorvastatin 40 mg tablet 40 mg PO QHS 30 Days Qty: 30 2RF clopidogrel 75 mg Tablet 75 mg PO DAILY 30 Days Qty: 30 5RF carvedilol 3.125 mg Tablet 3.125 mg PO BID 30 Days Qty: 60 2RF Continued multivitamin Tablet 1 tab PO QAM magnesium gluconate [Mag-G] 27 mg magnesium (500 mg) tablet 27 mg PO BID omega 0-nsj-ohi-fish oil [Fish Oil] 300-1,000 mg capsule 1 cap PO DAILY calcium carbonate-vitamin D3 600 mg-5 mcg (200 unit) capsule 1 cap PO DAILY omeprazole 20 mg tablet,delayed release (DR/EC) 20 mg PO DAILY diclofenac sodium 75 mg tablet,delayed release (DR/EC) 75 mg PO BID oxybutynin chloride 10 mg tablet extended release 24hr 10 mg PO DAILY lisinopril 5 mg tablet 5 mg PO DAILY 30 Days Qty: 30 0RF Changed hydrochlorothiazide 25 MG tablet 12.5 mg PO DAILY 30 Days Qty: 0 0RF Held oxybutynin chloride 5 MG tablet 5 mg PO DAILY Hold Instructions: Clarified with the physician Patient Comments: once daily per pt Referrals / Follow Up: Rene,Jules, MD [Med Staff - Active Staff] - Within 2 Weeks Princess Brantley DO [Primary Care Provider] - Disposition Disposition (needs filled in before D/C Order can be placed): Home, Self Care
[2025-01-27 10:51] VITALS: BP 125/62; PULSE 78; RESP 16; TEMP 36.6; O2SAT 96
[2025-01-27] MEDS: Clopidogrel Bisulfate 75 MG Tablet PO (10:56)
[2025-01-27] MEDS: Aspirin E.C. 81 MG Tablet PO (10:56)
[2025-01-27] MEDS: Carvedilol 3.125 MG TABLET PO (10:56)
[2025-01-27] MEDS: Tolterodine Tartrate 2 MG CAP.SA PO (10:56)
[2025-01-27] MEDS: Pantoprazole Sodium 20 MG Tablet PO (10:56)
--- NOTE | 2025-01-27 10:56 | PCM.DC.SUM ---
Providers Date of Admission: 01/25/25 Date of Discharge: 01/27/25 Primary Care Physician: Dr. Princess Brantley, DO Consultations 01/25/25 11:59 Consult: Cardiology Routine Consulting Provider: Jules López Reason for Consult: STEMI EMERGENT Consult: No MD Notified: Yes Date Notified: 01/25/25 Time Notified: 09:28 Method of Notification: ED Physician Initiated Reason For Visit: chest pain Diagnosis Discharge Diagnosis (1) ST elevation (STEMI) myocardial infarction: Status: Acute Code(s): I21.3 - ST elevation (STEMI) myocardial infarction of unspecified site (2) Coronary artery disease: Status: Acute Code(s): I25.10 - Atherosclerotic heart disease of [place] coronary artery without angina pectoris (3) HTN (hypertension): Status: Chronic Code(s): I10 - Essential (primary) hypertension Qualifiers: Hypertension type: essential hypertension Qualified Code(s): I10 - Essential (primary) hypertension (4) Dyslipidemia: Status: Acute Code(s): E78.5 - Hyperlipidemia, unspecified Plan This is a 69 old female being admitted for management of inferior wall STEMI 1. Inferior wall STEMI: Repeat EKG after PCI still shows ST elevation inferior and ST depression in aVL and aVR suggestive of inferior posterior wall STEMI. Patient is being admitted in ICU. Coronary angiogram revealed subtotal occlusion of proximal RCA with thrombus burden. Successful balloon angioplasty and stent placement was performed. Aspirin lifelong. Brilinta/P2 Y12 currently 6 months. Beta-terese, losartan and statin. 01/26: 2D echo shows EF 55 to 60% stage I diastolic dysfunction. Mild valvular abnormality as mentioned below.. TSH normal. Fasting profile shows LDL 144, elevated goal should be less than 100 and ideally less than 70. Total cholesterol 211. A1c 5.8%. Yesterday, discussed with the student financial services counselor no need for repeating troponin as patient had a STEMI and the STEMI protocol with cath was done as mentioned above 01/27: Echo finding discussed with the patient. Patient is doing well. No acute event overnight. Right wrist still looks bruised but no bruit. Follow-up in cardiology office in 2 weeks. Patient discharged on baby aspirin, Plavix, carvedilol and high intensity atorvastatin. Patient already on lisinopril and HCTZ. 2. Hypertension: Patient had low blood pressure and bradycardia due to inferior wall STEMI. Most recent BP is elevated 156/66. Heart rate 77/min. Monitor heart. Patient on HCTZ and losartan. 01/26: Blood pressure elevated. Losartan and HCTZ resumed 3. ASHKAN on CKD 3A: Patient baseline creatinine is between 1.12-1.24, last February 2024. Currently 1.6. 01/26: Creatinine 1.3 on baseline. ASHKAN resolved 4. Hyperglycemia: Patient history of hyperglycemia, glucose 124 in BMP. A1c 5.8% suggestive of prediabetic 5. Other chronic comorbidities include osteoarthritis of left knee and hip and left thumb. PT and OT ordered. 6. Obesity grade 3: BMI 37.5 kg/m?. Weight loss nutrition advised. Amf Mechanic consult. Discharge medication reconciliation done. Discharge follow-up instructions completed. Discharge process discussed with the patient and all questions were answered to patient's satisfaction. Follow with PCP in 1 to 2 weeks Total time spent, exact 35 minutes on discharge meds reconciliation, examination, coordination of care with nurses and ancillary staff, review of imaging and blood test and discussion with the patient on follow-up instructions. Living will/advanced directive/end of life care: Patient does have living will or advanced directive. Her daughter is power of otter trawler boatswain for health. After discussion of benefits/risks procedures involved with full code, DNR CC arrest and DNR CC, the patient opted for full code but does not want to prolong resuscitation procedure for long time or want to be in vegetative state. Patient does want artificial life support including intubation, tube feed, ventilator and/chest compression, central venous catheter, vasopressor and DC shock if needed Interpretation Summary Severe inferior and posterior hypokinesis. Estimated LVEF 55 to 60%. Stage I diastolic dysfunction. The left atrium is moderately enlarged. Mild to moderate mitral valve regurgitation. Mild tricuspid valve insufficiency. Right ventricular systolic pressure estimated to be 40 mmHg. Mild (1+) pulmonic valve insufficiency. Laboratory Results 01/26/25 04:50: WBC 10.6, RBC 3.67 L, Hgb 10.8 L, Hct 32.1 L, MCV 87.5, MCH 29.4, MCHC 33.6, RDW Std Deviation 42.1, RDW Coeff of Elizabeth 13.1, Plt Count 237, MPV 9.5, Sodium 134, Potassium 3.7, Chloride 99, Carbon Dioxide 21.4, Anion Gap 14, BUN 19, Creatinine 1.30 H, Estim Creat Clear Calc 47.96 L, Est GFR (MDRD) Non-Af 45 L, BUN/Creatinine Ratio 14.5, Glucose 111 H, Hemoglobin A1c 5.8, Calcium 9.2, Total Bilirubin 0.45, AST 196 H, ALT 42 H, Alkaline Phosphatase 71, Total Protein 6.5, Albumin 4.0, Globulin 2.5, Albumin/Globulin Ratio 1.6, Triglycerides 84, Cholesterol 211 H, LDL Cholesterol, Calc 144, VLDL Cholesterol 17, HDL Cholesterol 50, Cholesterol/HDL Ratio 4.20, TSH 1.760 Medications at Discharge Home Medications oxybutynin chloride 5 mg tablet 5 mg PO DAILY urination 10/25/17 Held on 01/27/25. Instructions: Clarified with the physician magnesium gluconate 27 mg magnesium (500 mg) tablet (Mag-G) 27 mg PO BID 08/31/22 multivitamin 1 tab PO QAM 08/31/22 omega 8-cuo-pue-fish oil 300 mg-1,000 mg capsule (Fish Oil) 1 cap PO DAILY 08/31/22 calcium 600 mg (as carbonate)-vitamin D3 5 mcg (200 unit) capsule 1 cap PO DAILY 04/28/23 omeprazole 20 mg tablet,delayed release 20 mg PO DAILY 04/28/23 diclofenac sodium 75 mg tablet,delayed release 75 mg PO BID 03/22/24 oxybutynin chloride 10 mg tablet,extended release 24 hr 10 mg PO DAILY bladder 01/25/25 aspirin 81 mg tablet,delayed release 81 mg PO DAILY@0800 30 days #30 tabs 01/27/25 atorvastatin 40 mg tablet 40 mg PO QHS 30 days #30 tabs 01/27/25 carvedilol 3.125 mg tablet 3.125 mg PO BID 30 days #60 tabs 01/27/25 clopidogrel 75 mg tablet 75 mg PO DAILY 30 days #30 tabs 01/27/25 hydrochlorothiazide 25 mg tablet 12.5 mg (1/2 x 25 mg) PO DAILY blood pressure 30 days #0 tabs 01/27/25 lisinopril 5 mg tablet 5 mg PO DAILY 30 days #30 tabs 01/27/25 Physical Exam Narrative No acute arrhythmia events on the monitor. Sinus rhythm. Was transferred to PCU yesterday denies palpitation chest pain or shortness of breath Physical exam: General: Alert, Oriented x3, Cooperative HEENT: Atraumatic, PERRLA, EOMI, Normocephalic Oral: Oral mucosa moist. No Gingival or Mucosal Lesions/ Ulcerations Neck: Supple, No JVD, Negative Carotid Bruits Chest wall/Lungs: Air entry diminished in bilateral lung bases. No crepitation/rhonchi Cardiovascular: Regular rate, Regular Rhythm, Normal S1, Normal S2, No M/G/R Abdomen: Bowel Sounds Present, Soft, Non Tender, Non-Distended : No dysuria. No renal angle tenderness. No suprapubic tenderness. Extremities: No edema, Capillary Refill Less than 3 Seconds Skin: Mild subcutaneous bruise over right wrist and hand along radial artery distribution. No hematoma. Musculoskeletal: No Tenderness to Palpation of Joints or Extremities ROM intact Neurological: Cranial nerves II-XII grossly intact, DTR 2+/4. No acute focal neurological deficit. Psych/Mental Status: Normal Affect, Appropriate. Weight / BMI Weight Weight: 216 lb 7.903 oz Body Mass Index (BMI) 36.5 ABG / Lab / Microbiology Data 01/26/25 04:50 01/26/25 04:50 Radiography Diagnostic Testing: Radiology Impression Echocardiogram 01/26/25 10:54 Interpretation Summary Severe inferior and posterior hypokinesis. Estimated LVEF 55 to 60%. Stage I diastolic dysfunction. The left atrium is moderately enlarged. Mild to moderate mitral valve regurgitation. Mild tricuspid valve insufficiency. Right ventricular systolic pressure estimated to be 40 mmHg. Mild (1+) pulmonic valve insufficiency. Ordering Physician: Jules López Referring Physician: Princess Brantley Performed By: Elsa Coburn, JARRED, RVT D/C Instructions Discharge Diet: Low fat / Low cholesterol, 1800 Calorie Control Diet and 2000 mg Sodium Diet Weight Bearing Status: Weight bearing as tolerated Call your doctor if you observe: Fever of 101 or Higher, Coldness, Increased Pain, Numbness or Tingling, Change in Color, Inability to urinate, Inability to have a bowel movement, Shortness of breath, Dizziness, Fainting spells, Swelling in the ankles, Chest pain, Prolonged hiccupping, Increased palpitations (irregular heartbeat) and Calf discomfort DC O2, CPAP, BIPAP Needs Home O2 Discharge instructions: No When: IN 2 WEEKS Meaningful Use Info Meaningful Use Meaningful Use Diagnoses (Choose all that apply): AMI AMI/Post PCI/Angioplasty Aspirin given w/in 24hrs of arrival?: Yes ASA at discharge?: Yes Statins at discharge?: Yes Musa/ARB at discharge?: Yes Beta Terese at discharge?: Yes Done w/ Acute RI measure.: Yes Ischemic Stroke Statin Dosing Therapy Reference: STATIN DOSE THERAPY REFERENCE: * Patients > 75 years receive moderate or high dose statin therapy. * Patients 75 years or YOUNGER should receive HIGH intensity statin dose unless contraindicated. You will be required to document reason for non-treatment if statin daily dose does not meet guidelines. HIGH DOSE STATIN THERAPY DAILY Atorvastatin > than or = to 40 mg Rosuvastatin > than or = to 20 mg Amlodipine + Atorvastatin > than or = to 2.5/40 mg Ezetimibe + Simvastatin 10/80 mg Simvastatin 80mg Discharge Plan Admission Admit Date/Time: 01/25/25 12:05 Primary Reason for Your Visit: norma slaughter STEMI Attending Provider: Jared Vitale Primary Care Provider: Princess Brantley Consulting Providers: Jules López Discharge Orders/Prescriptions Prescriptions: New aspirin 81 mg Tablet,Delayed Release (Dr/Ec) 81 mg PO DAILY@0800 30 Days Qty: 30 2RF atorvastatin 40 mg tablet 40 mg PO QHS 30 Days Qty: 30 2RF clopidogrel 75 mg Tablet 75 mg PO DAILY 30 Days Qty: 30 5RF carvedilol 3.125 mg Tablet 3.125 mg PO BID 30 Days Qty: 60 2RF Continued multivitamin Tablet 1 tab PO QAM magnesium gluconate [Mag-G] 27 mg magnesium (500 mg) tablet 27 mg PO BID omega 4-uyv-puf-fish oil [Fish Oil] 300-1,000 mg capsule 1 cap PO DAILY calcium carbonate-vitamin D3 600 mg-5 mcg (200 unit) capsule 1 cap PO DAILY omeprazole 20 mg tablet,delayed release (DR/EC) 20 mg PO DAILY diclofenac sodium 75 mg tablet,delayed release (DR/EC) 75 mg PO BID oxybutynin chloride 10 mg tablet extended release 24hr 10 mg PO DAILY lisinopril 5 mg tablet 5 mg PO DAILY 30 Days Qty: 30 0RF Changed hydrochlorothiazide 25 MG tablet 12.5 mg PO DAILY 30 Days Qty: 0 0RF Held oxybutynin chloride 5 MG tablet 5 mg PO DAILY Hold Instructions: Clarified with the physician Patient Comments: once daily per pt Referrals / Follow Up: Jules López MD [Med Staff - Active Staff] - Within 2 Weeks Princess Brantley DO [Primary Care Provider] - Disposition Disposition (needs filled in before D/C Order can be placed): Home, Self Care Charges/Coding Visit Charges Inpatient E&M: 73195 Disch Hosp >30min
[2025-01-27] MEDS: Acetaminophen 325 MG Tablet 650 MG PO (11:04)
[2025-01-27] MEDS: hydroCHLOROthiazide 12.5mg 12.5 MG PO (11:04)
[2025-01-27] MEDS: Losartan Potassium 25 MG Tablet PO (11:04)
== END 2025-01-27 13:05 | disposition home or self-care (01) | DRG 322 ==
LOC: ED 10:36 → ICU 11:00 → MS2 01-26 12:52
PROVIDERS: Admitting Provider Internal Medicine Cardiovascular Disease; Emergency Provider Emergency Medicine; PCP Family Medicine; Referring Provider Internal Medicine Cardiovascular Disease; Visit Provider Internal Medicine
DX: I21.11 ST elevation (STEMI) myocardial infarction involving right coronary artery (principal); N17.9 Acute kidney failure, unspecified; N18.31 Chronic kidney disease, stage 3a; E66.813 Obesity, class 3; I12.9 Hypertensive chronic kidney disease with stage 1 through stage 4 chronic kidney disease, or unspecified chronic kidney disease; I25.10 Atherosclerotic heart disease of native coronary artery without angina pectoris; E78.5 Hyperlipidemia, unspecified; M17.12 Unilateral primary osteoarthritis, left knee; M16.12 Unilateral primary osteoarthritis, left hip; M18.12 Unilateral primary osteoarthritis of first carpometacarpal joint, left hand; R73.03 Prediabetes; Z68.37 Body mass index [BMI] 37.0-37.9, adult; Z79.1 Long term (current) use of non-steroidal anti-inflammatories (NSAID); Z79.02 Long term (current) use of antithrombotics/antiplatelets; Z79.82 Long term (current) use of aspirin; Z79.899 Other long term (current) drug therapy
CPT/HCPCS: 80048; 80053; 80061; 83036; 84443; 84484; 85025; 85027; 85347; 85610; 85730; 92941; 93005; 93306; 93458; 94668; 99152; 99153; 99284; C1766; C1769; Q9967; A4216; C1725; C1751; C1874; C1887; C1894; C9606; J0153; J1327; J1940; J2405

== ENCOUNTER → 2025-02-04 | Outpatient (CLI) | payer MEDICARE, OTHER, SELFPAY ==
--- NOTE | 2025-02-04 14:01 | PCM.CR.HP2 ---
CR - History & Physical General Arrival date:: 02/04/25 Arrival time:: 14:01 Date of Referral:: 01/28/25 Date of CR Evaluation:: 02/04/25 Referring Physician: Dr. López Primary Diagnosis: PCI with stenting History of Present Cardiac Event Onset Date Acute Myocardial Infarction within 12 months:: Yes PTCA or coronary stenting:: Yes (01/25/2025 onset) Vessel: RCA Medications Ambulatory Orders ?Medication ?Instructions ?Recorded oxybutynin chloride 5 mg tablet 5 mg PO DAILY urination 10/25/17 Held on 01/27/25. Instructions: Clarified with the physician magnesium gluconate 27 mg 27 mg PO BID 08/31/22 magnesium (500 mg) tablet (Mag-G) multivitamin 1 tab PO QAM 08/31/22 omega 9-umq-ran-fish oil 300 1 cap PO DAILY 08/31/22 mg-1,000 mg capsule (Fish Oil) calcium 600 mg (as 1 cap PO DAILY 04/28/23 carbonate)-vitamin D3 5 mcg (200 unit) capsule omeprazole 20 mg tablet,delayed 20 mg PO DAILY 04/28/23 release diclofenac sodium 75 mg 75 mg PO BID 03/22/24 tablet,delayed release oxybutynin chloride 10 mg 10 mg PO DAILY bladder 01/25/25 tablet,extended release 24 hr aspirin 81 mg tablet,delayed 81 mg PO DAILY@0800 30 days #30 01/27/25 release tabs atorvastatin 40 mg tablet 40 mg PO QHS 30 days #30 tabs 01/27/25 carvedilol 3.125 mg tablet 3.125 mg PO BID 30 days #60 tabs 01/27/25 clopidogrel 75 mg tablet 75 mg PO DAILY 30 days #30 tabs 01/27/25 hydrochlorothiazide 25 mg tablet 12.5 mg (1/2 x 25 mg) PO DAILY 01/27/25 blood pressure 30 days #0 tabs lisinopril 5 mg tablet 5 mg PO DAILY 30 days #30 tabs 01/27/25 Allergies Allergies Sulfa (Sulfonamide Antibiotics) Allergy (Verified 03/22/24 09:23) Rash Sleep Disorder Evaluation Hx of Sleep Apnea: No Do you snore loudly (louder than talking or can be heard through closed doors)?: No Do you often feel tired/ fatigued/ sleepy during daytime?: No Has anyone observed you stop breathing during sleep?: No History of Hypertension (for STOP score): Yes STOP Results: Negative Advanced Directives Advanced Directives Power of Immigration Case Worker: Yes Living Will: No Advance Directives Information Provided: Yes Advance Directives on File: No DNR Order?:: No Past Medical History Covid-19 Screening Physicial Symptoms Other Clinical Concerns Exposure Risk Pertinent Comorbidities 65 years or older:: Yes Has a serious heart condition:: Yes Severely obese (Body Mass Index of 40 or higher):: Yes Past Medical Illness Past Medical History (Updated 02/04/25 @ 00:02 by Background Daemon) Dyslipidemia E78.5 Coronary artery disease I25.10 Osteoarthritis of carpometacarpal joint of left thumb M18.12 Pain of left thumb M79.645 Strain of left knee S86.912A Osteoarthritis of left knee M17.12 Stress fracture of right foot M84.374A 02/2023 Greater trochanteric bursitis of left hip M70.62 Hyperglycemia R73.9 Obesity E66.9 HTN (hypertension) I10 Chest pain R07.9 Past Surgical History Past Surgical History (Updated 02/04/25 @ 00:02 by Background Daemon) Stented coronary artery (01/25/25) Z95.5 History of tonsillectomy Z98.890, Z90.89 History of tubal ligation Z98.51 Surgical History: appendectomy and - (Tubal ligation) Family History Summary Family History Sister Hypertension Mother CVA (cerebral vascular accident) Hypertension Social History Smoking History Smoking Status: Never smoker Alcohol Use Alcohol Usage: Yes (rare) Substance Abuse Hx Substance Use: No Occupation Occupation (List type of work in comments):: Retired Social Environment Status Marital Status: Current Living Arrangements Living Environment:: Alone Children How many children do you have?: 2 Do any of your children live nearby?: Yes Safety Do you feel safe in your surroundings?: Yes Assistance Do you need any assistance at home?: no Review of Systems Review of Systems Hints Review of Present Symptoms: Reports Operative Discomfort (wrist and hand pain), Angina (tightness), Fatigue, Appetite - Normal, Appetite - Special Diet and Sleep - Normal; Denies Shortness of Breath at Rest, Shortness of Breath with Exertion, PVD, Wound Healing, Dizziness/Lightheadedness, Heart Arrhythmia/Irregularities or Sexual Changes Pain Is Patient Pain Free?: Yes Risk Factor Assessment Chief Complaint Chief Complaint: PCI with stenting Vital Signs Pulse Ox: 98 Blood Pressure: 122/64 Pulse Pulse Rate: 72 Pulse Rhythm: Regular Hypertension How long have you been treated?: 15 years Blood Pressure Sitting - Right Arm: 122/64 Obesity Height: 5 ft 4.5 in Weight:: 200 lb Weight in Pounds: 200.0 lbs Body Mass Index (BMI): 33.7 Nutritional Referral for Obesity: No (declines) Physical Inactivity Physical Inactivity: Reg Exercise 30 min/day Risk Stratification Risk Guidelines: Lowest Risk: Risk Factor for Smoking, Moderate Risk: Risk Factor for Diabetes, Risk Factor for Obesity, Risk Factor for Sedentary Lifestyle and Risk Factor for Depression and Highest Risk: Risk Factor for Dyslipidemia and Risk Factor for Hypertension For Smoking Smoking Risk Guidelines For Dyslipidemia Dyslipidemia Risk Guidelines For Diabetes Mellitus Diabetes Risk Guidelines For Obesity/Overweight Obesity/Overweight Risk Guidelines For Hypertension Hypertension Risk Guidelines For Sedentary Lifestyle Sedentary Lifestyle Risk Guidelines For Depression Depression Risk Guidelines Family History Family History Sister Hypertension Mother CVA (cerebral vascular accident) Hypertension Motivation Motivation to Participate On a scale of 1 to 10, how prepared are you to commit to attending program?: 8 What do you see as barriers to successfully being able to complete the program?: nothing What do you see as the benefits of succesfully completing the program? In other words, what do you hope to get out of participating in the program?: more energy, breath better Are there issues you are dealing with that will interfere with completing the program?: no Do you have a spouse or signficant other, family or friends who will help support you to complete the program?: yes
[2025-02-04 14:18] VITALS: BP 122/64; PULSE 72; O2SAT 98
--- NOTE | 2025-02-04 14:31 | PCM.CR.ITP ---
Diagnosis General Information Admitting Diagnosis: PCI with stenting Personal Learning Style:: Audio/Visual Barriers to Learning: No Barriers Stage of change r/t lifestyle modifications:: Contemplation Gave educational material for:: Treating Heart Disease, How The Heart Works, What it means to have Heart Disease, How Coronary Artery Disease is Diagnosed, Heart Procedures, What Heart Medications Do, Risk Factors & Modifications, Living an Active Life, Nutrition, Emotions & Heart Disease, Stress Management & Relaxation and Sleep Disorders & Heart Disease Education/Goals Cardiac Rehabilitation Goals Personal Goals: Initial Assessment: Improve energy level, Participate in home exercise program, Improve muscle strength and endurance and Improve diet and eating habits (eat healthier) Scale for measuring improvement of personal goals Diagnosis & Disease Process Outcomes/Goals: Pt IDs own risk factors & lifestyle modifications by Session 10, Verbalizes symptoms of angina & response by session 3., Pt independently manages and Other Additional Outcomes/Goals: Plan/Interventions: Assist Pt to ID & engage in lifestyle modification to reduce CVD risk, Instruct on individual risk factors, Review symptoms of angina & emergency actions, Review secondary diagnosis & identify educational needs. and Other see comment 30 day Reassessments:: Not Met 30 day Reassessments:: Not Met 30 day Reassessments:: Not Met 30 day Reassessments:: Not Met Final Reassessments:: Not Met Safety Referral to Physical Therapy: No Referral to [facility] Case Management: No Fall Risk Assessed:: Yes Assistive Devices:: None Exercise - Initial Assessment Visit Date of Eval: 02/04/25 (initial eval ) Mets: Pre-: >5 METS for 30 minutes by discharge Physician Prescribed Exercise Modalities: Treadmill, Rower, Schwinn Airdyne AD-7, SciFit Stepper, [employer] Pro-II Ergometer and [employer] Lateral [place] Frequency: 3x/week for 12 weeks [36 sessions] Intensity: 60-80% of age predicted maximum heart rate reserve Duration: 30 - 45 minutes Current METSs:: 3 Target Heart Rate:: 91-114 Resting Blood Pressure: 122/64 EKG Type: NSR Outcomes & Goals Goals:: Verbalizes understanding of THR, RPE & goal METS by session 6, Documents in home exercise log/reports 30 min aerobic 5 day/wk by DC, Demonstrates accurate pulse taking by DC and Other additional outcome/goals: see below Intervention & Plan Exercise Program Goals: Instruct on personal THR & RPE, Instruct on MET level & personal MET goal, Show patient to take own pulse /validate performance until accurate, Instruct on home exercise and Other additional plan/int Physical Activity Home Exercise Physical Activity - Home Exercise: Safe Exercise, Warm-up, Self-monitoring, Cool-Down, Home Exercise > 30 min Daily and Sitting Time <3 hours/daily Outcomes & Goals Outcomes/Goals: Demonstrates correct Warm-up/exercise Cool-Down (S3) if = 2.5 METs, Verbalizes symptoms of exercise intolerance by Session 3 (S3), Demonstrate safe equipment use (S3) & follows exercise prescrition (6) and Other: See below Intervention & Plan Plan/Intervention: Instruct warm-up & cool-down if exercising at > 2 METs, Instruct on symptoms of exercise intolerance & actions to take, Instruct & monitor on saf, Assess intial functional capacity & safety risk and Other See below Nutrition - Initial Assessment Program Goals Nutrition Program Goals Patient has diagnosis of Hyperlipidemia (ICD E78)?: Yes Visit Date of Eval: 02/04/25 (initial eval ) Cholesterol/Lipids (Other Core Measures) Determine presence & major risk factors that modify LDL goal: Hypertension or hypertensive medication, Low HDL cholesterol <40 mg/dL*, Family history of premature CHD in Male < 55 years: female <65 yearsFa and Age men > 45 years; women >/= 55 years Outcomes/Goals: Pt IDs own risk factors & lifestyle modifications by Session 10, Verbalizes symptoms of angina & response by session 3., Pt independently manages and Other Additional Outcomes/Goals: Intervention/Plan: Advocate for lipid panel cholesterol medication if applicable, Instruct on personal lipid levels & lipid goals/NCEP guidelines, Instruct on cholesterol and Other additional plan/int Referral to dietitian:: No (declines) Diabetes (Other Core Measures) Diabetes Type: Not Applicable Weight Mgt (Other Care) Height: 5 ft 4.5 in Weight:: 200 lb BMI: 33.7 Diagnosis Overweight/Obesity BMI> 30% ICD-10 E66: Yes Diagnosis High BMI/Morbid Obesity BMI> 35% ICD-10 Z68: No Outcomes/Goals: Pt sets, maintains & shows weight loss goal & trend during rehab and Other additional outcomes/goals Intervention/Plan: Instruct on ideal BMI & set weight loss goal w/patient, Assist pt to ID & incorporate diet changes for weight loss by S9, Refer to Structured Weight Loss program as appropriate, Encourage goal of using 250-300dcal per session for weight loss and Other additional plan/interventions Healthy Eating Habits Will attend diet classes:: Yes Outcomes/Goals:: Consume diet rich in vegs,fruits,whole grain/high fiber,fish,lean meat, Limit sat/trans fats,cholesterol & added salts & sugars and Other additional outcome/goals: Intervention/Plan:: Assess current eating habits and Other Additional plan/interventions Education Gave educational materials for:: Signs & symptoms of hypoglycemia, Signs & symptoms of hyperglycemia, Relate diabetes to coronary artery disease and Healthy eating Core - Initial Assessment Visit Date of Eval: 02/04/25 (initial eval ) Medication Compliance Preventative Medication(s):: Aspirin, TRAN inhibitor, Clopidogrel/P2Y12 inhibit, Statin/lipid and Beta marquise H/O mental health issues: depression, anxiety, or addiction?: No Doesn?t believe in the benefits of treatment?: No Believes medications are unnecessary or harmful?: No Has a concern about medication side effects?: No Expresses concern over the cost of medications?: No Outcomes/Goals: Verbalizes medications,desired effect & common side effects @ DC, Pt self-reports following medication regimen, Keeps card in wallet w/medications listed by DC and Other additional outcome/goals: Interventions/plans: Instruct on medication effects & side effects, Review medication list w/patient every two weeks, Instruct importance of taking meds as ordered & assist problem solving and Other additional Tobacco Use Tobacco Use: Non-smoker Hypertension Hypertension Diagnosis:: Hypertension ICD-10 I10 Resting Blood Pressure:: 122/64 [place] [employer] Hypertension Guidelines Outcomes/Goals: Able to verbalize/achieve optimal blood pressure <130/80, Incorporates diet changes & exercise for blood pressure control by DC and Other additional outcomes/goals Interventions/plan: Instruct on optimal blood pressure, hypertension & medications, Instruct on effects of sodium, alcohol, stress, exercise &hypertension and Other additional plan/interventions Tobacco Cessation Referral Smoking Cessation Referral:: No Individual Education/Counseling:: No Education Schedule Given:: Yes Psychosocial - Initial Assess VIsit Date of Eval: 02/04/25 (initial eval ) History of previous Mental disease:: No Target Goals Target Goals Psychosocial Test Tool Used:: PHQ-9 Questionnaire phq-9 Severity Referral to Behavioral Health PS - Interventions: Yes: Attend Stress Management Classes Outcomes/Goals: See list Psychosocial Outcomes/Goals:: ID's personal stressors & 2 strategies to manage stress by discharge and Other Additional outcome/goals: Intervention/Plan: See List Interventions/Plan:: Assess stressors,coping strategies & signs of derpression on admission, Instruct/assist pt to develop coping & personal stress Mgt strategies, Refer to Behavioral Health if appropriate, Refer to Physician if appropriate, Instruct patient to recognize signs & symptoms of depression, Instruct patient to recog and Other additional plan/intervention Comments:: Pt denies any psychosocial issues at this time. Patient Health Questionnaire PHQ-9 Screening Initial Assessment: 1. Little interest or pleasure in doing things: Not at all 2. Feeling down, depressed, or hopeless: Not at all 3. Trouble falling or staying asleep, or sleeping too much: Not at all 4. Feeling tired or having little energy: Several days 5. Poor appetite or overeating: Several days 6. Feeling bad about yourself -- or that you are a failure or have let yourself or your family down: Not at all 7. Trouble concentrating on things, such as reading the newspaper or watching television: Not at all 8. Moving or speaking so slowly that other people could have noticed. Or the opposite - being so fidgety or restless that you have been moving around a lot more than usual: Not at all 9. Thoughts that you would be better off , or of hurting yourself in some way: Not at all How difficult have these problems made it for you to do your work, take care of things at home, or get along with other people?: Not difficult at all Total Score: 2 RENZO-Q SV Test Statements CAD is a disease of the arteries in the heart: False Examples of risk factors for heart disease: True Angina is chest pain or discomfort: True The benefits of resistance training include: True Eating more meat and dairy products: False Anti-platelet medications such as aspirin are important: True The only effective way to manage stress: False An exercise warm-up slowly increases heart rate: True Prepared, processed foods usually have high sodium: True Depression is common after a heart attack: True The statin medications lower cholesterol: True To control blood pressure, lower the amount of sodium: True If someone gets chest discomfort during walking: False Transfats are partially hydrogenated vegetable oils: True Sleep apnea that is not treated increases the risk: False To control cholesterol, one should become a vegetarian: False Someone knows if he/she is exercising at the right level: True Diabetes cannot be prevented with exercise & health eating: False Stress is a large risk for heart attack: True A diet that can help lower blood pressure is rich in: True Total Score Total Correct Responses: 20 Self-Efficacy 6-Item Scale Initial Assessment: We would like to know how confident you are in doing certain activities. Please select your confidence level for: Fatigue Select Number: 8 Physical Discomfort or Pain Select Number: 8 Emotional Distress Select Number: 8 Other Symptoms or Health Problems Select Number: 8 Different Tasks and Activities Select Number: 8 Medication Select Number: 8 Total Score:: 8 Nutrition Survey Nutrition Survey Instructions Scoring Instructions Nutrition Survey Initial: Have you lost >10 lbs over the past 2 months without trying?: No Are you following a special diet at home for diabetes, low fat, or low salt?: No Are you interested in meeting with a dietitian for help understanding your diet?: No Do you eat less than 3 meals a day?: No Do you eat fatty meats (woods, sausage, ribs, etc), fried foods, desserts, large amounts of salad dressings, margarine, butter, or cheese most days?: No Do you have food allergies? [Enter types in comment field]: No Do you eat in restaurants more than 3 times a week?: No Do you season food with salt, seasoning salt, or garlic salt?: No Do you used canned, boxed, frozen meals, or soups, seasoning packets?: Yes Total Score:: 1 Exercise - 30-day Assessment Physician Prescribed Exercise Modalities: Treadmill, Rower, Schwinn Airdyne AD-7, SciFit Stepper, SciFit Pro-II Ergometer and SciFit Lateral [place] Exercise - 60-day Assessment Physician Prescribed Exercise Modalities: Treadmill, Rower, Schwinn Airdyne AD-7, SciFit Stepper, SciFit Pro-II Ergometer and SciFit Lateral [place] Exercise - 90-day Assessment Physician Prescribed Exercise Modalities: Treadmill, Rower, Schwinn Airdyne AD-7, SciFit Stepper, SciFit Pro-II Ergometer and SciFit Lateral [place] Exercise - Final/Discharge Physician Prescribed Exercise Modalities: Treadmill, Rower, Schwinn Airdyne AD-7, SciFit Stepper, SciFit Pro-II Ergometer and SciFit Lateral [place] Frequency: 3x/week for 12 weeks [36 sessions] Intensity: 60-80% of age predicted maximum heart rate reserve Current METSs:: 3 Target Heart Rate:: 91-114 Nutrition - 30-Day Assessment Weight Mgt (Other Care) Height: 5 ft 4.5 in Weight:: 200 lb BMI: 33.7 Nutrition - 60-Day Assessment Weight Mgt (Other Care) Height: 5 ft 4.5 in Weight:: 200 lb BMI: 33.7 Core - Final Assessment Hypertension Resting Blood Pressure:: 122/64 [place] [employer] Hypertension Guidelines Core - 60-Day Assessment Hypertension Resting Blood Pressure:: 122/64 [place] [employer] Hypertension Guidelines Psychosocial - 30-Day Assess Target Goals Target Goals Referral to Behavioral Health PS - Interventions: Yes: Attend Stress Management Classes Psychosocial - 60-Day Assess Target Goals Target Goals Referral to Behavioral Health PS - Interventions: Yes: Attend Stress Management Classes Psychosocial - 90-Day Assess Target Goals Target Goals Referral to Behavioral Health PS - Interventions: Yes: Attend Stress Management Classes Psychosocial - Final Assessmen Target Goals Target Goals Referral to Behavioral Health PS - Interventions: Yes: Attend Stress Management Classes Nutrition - 90-Day Assessment Weight Mgt (Other Care) Height: 5 ft 4.5 in Weight:: 200 lb BMI: 33.7 Nutrition - Final Assessment Program Goals Patient has diagnosis of Hyperlipidemia (ICD E78)?: Yes Weight Mgt (Other Care) Height: 5 ft 4.5 in Weight:: 200 lb BMI: 33.7
[2025-02-04 14:46] VITALS: BP 122/64; BMI 33.7
[2025-02-04 14:47] VITALS: BMI 33.7
== END | disposition home or self-care (01) ==
PROVIDERS: PCP Family Medicine; Referring Provider Internal Medicine Cardiovascular Disease; Visit Provider Internal Medicine Cardiovascular Disease
DX: I25.10 Atherosclerotic heart disease of native coronary artery without angina pectoris (principal); I25.2 Old myocardial infarction; I10 Essential (primary) hypertension; E78.5 Hyperlipidemia, unspecified; Z95.5 Presence of coronary angioplasty implant and graft

== ENCOUNTER → 2025-02-14 | Outpatient (CLI) | payer MEDICARE, OTHER, SELFPAY ==
[2025-02-04 14:46] VITALS: BMI 33.7
--- NOTE | 2025-02-14 08:27 | BI_ITS ---
EXAM: SCRN MAMM (CAD)W/INO BILAT DATE: 02/14/2025 CLINICAL HISTORY: F, Age 69 y/o , SCREENING BREAST CANCER RISK ASSESSMENT: Has not been calculated. TECHNIQUE: Bilateral screening digital breast tomosynthesis with 2D and 3D images. Computer aided detection. COMPARISON: Prior exam(s) dated 02/09/2024 FINDINGS: TISSUE DENSITY: The breast tissue is composed of scattered area of fibroglandular density. Bilateral Breast Mammographic Findings: There are no suspicious masses, suspicious clustered microcalcifications, architectural distortion or secondary signs of malignancy identified in either breast. Benign vascular calcifications and round calcifications are seen in both breasts. Stable nodular masslike densities are seen in both breasts. A stable benign- appearing 7 mm intramammary lymph node in the superior outer aspect of the right breast is noted. BI/SCRN MAMM (CAD)W/INO BILAT IMPRESSION: Right Breast: BIRADS 2 BENIGN FINDING. Left Breast: BIRADS 2 BENIGN FINDING. OVERALL FINAL ASSESSMENT: BIRADS 2 BENIGN FINDING RECOMMENDATION: Routine annual follow-up in 1 Year A letter with findings and recommendations will be mailed to the patient. Reading Location: [id number]
== END | disposition home or self-care (01) ==
LOC: OPBI 08:26
PROVIDERS: PCP Family Medicine; Referring Provider Family Medicine; Visit Provider Family Medicine
DX: Z12.31 Encounter for screening mammogram for malignant neoplasm of breast (principal)
CPT/HCPCS: 77063; 77067

== ENCOUNTER 2025-02-18 09:15 | Outpatient (RCR) | payer MEDICARE, OTHER, SELFPAY ==
[2025-02-04 14:46] VITALS: BMI 33.7
== END 2025-02-18 23:59 ==
LOC: CR 09:15
PROVIDERS: PCP Family Medicine; Referring Provider Internal Medicine Cardiovascular Disease; Visit Provider Internal Medicine Cardiovascular Disease
DX: Z95.5 Presence of coronary angioplasty implant and graft (principal); I21.3 ST elevation (STEMI) myocardial infarction of unspecified site; I25.10 Atherosclerotic heart disease of native coronary artery without angina pectoris; E78.5 Hyperlipidemia, unspecified; I10 Essential (primary) hypertension
CPT/HCPCS: 93798

== ENCOUNTER → 2025-03-01 | Outpatient (CLI) | payer MEDICARE, OTHER, SELFPAY ==
[2025-02-04 14:46] VITALS: BMI 33.7
[2025-03-01 11:28] LABS: AST(SGOT) 22 U/L (<=31); Alanine Aminotransfer ALT/SGPT 16 U/L (<=34); Albumin, Serum 4.4 g/dL (3.4-4.8); Alkaline Phosphatase 81 U/L (35-104); Bilirubin, Direct 0.21 mg/dL (0.00-0.30); Cholesterol 119 mg/dL (<=200); Globulin 2.9 g/dL (2.2-4.2); High Density Lipoprotein 56 mg/dL; Low Density Lipoprotein Calc. 47 mg/dL; Protein, Total 7.3 g/dL (5.9-8.4); Total Bilirubin 0.43 mg/dL (0.00-1.30); Triglycerides 79 mg/dL; Very Low Density Lipoprotein 16 mg/dL (5-40); cholesterol:hdl ratio screen 2.12
== END | disposition home or self-care (01) ==
LOC: LAB 10:02
PROVIDERS: PCP Family Medicine; Referring Provider Physician Assistant Medical; Visit Provider Physician Assistant Medical
DX: E78.5 Hyperlipidemia, unspecified (principal)
CPT/HCPCS: 36415; 80061; 80076

== ENCOUNTER 2025-03-20 09:15 | Outpatient (RCR) | payer MEDICARE, OTHER, SELFPAY ==
[2025-02-04 14:46] VITALS: BMI 33.7
--- NOTE | 2025-03-06 07:04 | PCM.CR.ITP ---
Exercise - Initial Assessment Visit Session #:: 11 Physician Prescribed Exercise Modalities: Schwinn Airdyne AD-7, SciFit Stepper and SciFit Lateral [place] Nutrition - Initial Assessment Weight Mgt (Other Care) Height: 5 ft 4.5 in Weight:: 211 lb 8 oz BMI: 35.7 Psychosocial - Initial Assess Target Goals Target Goals Referral to Behavioral Health PS - Interventions: Yes: Attend Stress Management Classes Patient Health Questionnaire PHQ-9 Screening 30-Day Re-eval Assessment: 1. Little interest or pleasure in doing things: Not at all 2. Feeling down, depressed, or hopeless: Not at all 3. Trouble falling or staying asleep, or sleeping too much: Not at all 4. Feeling tired or having little energy: Several days 5. Poor appetite or overeating: Several days 6. Feeling bad about yourself -- or that you are a failure or have let yourself or your family down: Not at all 7. Trouble concentrating on things, such as reading the newspaper or watching television: Not at all 8. Moving or speaking so slowly that other people could have noticed. Or the opposite - being so fidgety or restless that you have been moving around a lot more than usual: Not at all 9. Thoughts that you would be better off , or of hurting yourself in some way: Not at all How difficult have these problems made it for you to do your work, take care of things at home, or get along with other people?: Not difficult at all Total Score: 2 Self-Efficacy 6-Item Scale 30-Day Re-eval Assessment: We would like to know how confident you are in doing certain activities. Please select your confidence level for: Fatigue Select Number: 8 Physical Discomfort or Pain Select Number: 8 Emotional Distress Select Number: 8 Other Symptoms or Health Problems Select Number: 8 Different Tasks and Activities Select Number: 8 Medication Select Number: 8 Total Score:: 8 Nutrition Survey Nutrition Survey Instructions Scoring Instructions Exercise - 30-day Assessment Visit Date of Eval: 03/06/25 Session #:: 11 Physician Prescribed Exercise Modalities: Schwinn Airdyne AD-7, SciFit Stepper and SciFit Lateral Child Psychiatrist Frequency: 3x/week for 12 weeks [36 sessions] Intensity: 60-80% of age predicted maximum heart rate reserve Duration: 30 - 45 minutes Current METSs:: 3.9 Target Heart Rate:: 91-114 Current RPE:: 12-13 Maximum Excercise HR:: 101 Resting Blood Pressure: 104/62 Maximum Exercise Blood Pressure: 130/68 EKG Type: NSR to ST w/incomplete BBB w/ Twave inversion w/rare pac and pvc Outcomes & Goals Goals:: Verbalizes understanding of THR, RPE & goal METS by session 6, Documents in home exercise log/reports 30 min aerobic 5 day/wk by DC, Demonstrates accurate pulse taking by DC and Other additional outcome/goals: see below Intervention & Plan Exercise Program Goals: Instruct on personal THR & RPE, Instruct on MET level & personal MET goal, Show patient to take own pulse /validate performance until accurate, Instruct on home exercise and Other additional plan/int Physical Activity Home Exercise Physical Activity - Home Exercise: Safe Exercise, Warm-up, Self-monitoring, Cool-Down, Home Exercise > 30 min Daily and Sitting Time <3 hours/daily Outcomes & Goals Outcomes/Goals: Demonstrates correct Warm-up/exercise Cool-Down (S3) if = 2.5 METs, Verbalizes symptoms of exercise intolerance by Session 3 (S3), Demonstrate safe equipment use (S3) & follows exercise prescrition (6) and Other: See below Intervention & Plan Plan/Intervention: Instruct warm-up & cool-down if exercising at > 2 METs, Instruct on symptoms of exercise intolerance & actions to take, Instruct & monitor on saf, Assess intial functional capacity & safety risk and Other See below 30-day Reassessments 30 day Reassessments:: Progressing Reassessment Notes & Comments:: RPE explained to pt. Pt demonstrates understanding in her daily sessions. Exercise - 60-day Assessment Physician Prescribed Exercise Modalities: Miranda Ashton AD-7, SciFit Stepper and SciFit Lateral Child Psychiatrist Exercise - 90-day Assessment Physician Prescribed Exercise Modalities: Miranda Ashton AD-7, SciFit Stepper and SciFit Lateral Child Psychiatrist Exercise - Final/Discharge Physician Prescribed Exercise Modalities: Miranda Ashton AD-7, SciFit Stepper and SciFit Lateral Child Psychiatrist Nutrition - 30-Day Assessment Program Goals Nutrition Program Goals Patient has diagnosis of Hyperlipidemia (ICD E78)?: Yes Visit Date of Eval: 03/06/25 Session #:: 11 Cholesterol/Lipids (Other Core Measures) Determine presence & major risk factors that modify LDL goal: Hypertension or hypertensive medication, Low HDL cholesterol <40 mg/dL*, Family history of premature CHD in Male < 55 years: female <65 yearsFa and Age men > 45 years; women >/= 55 years Outcomes/Goals: Pt IDs own risk factors & lifestyle modifications by Session 10, Verbalizes symptoms of angina & response by session 3., Pt independently manages and Other Additional Outcomes/Goals: Intervention/Plan: Advocate for lipid panel cholesterol medication if applicable, Instruct on personal lipid levels & lipid goals/NCEP guidelines, Instruct on cholesterol and Other additional plan/int Referral to dietitian:: No (declines) Diabetes (Other Core Measures) Diabetes Type: Not Applicable Weight Mgt (Other Care) Height: 5 ft 4.5 in Weight:: 211 lb 8 oz BMI: 35.7 Diagnosis Overweight/Obesity BMI> 30% ICD-10 E66: Yes Diagnosis High BMI/Morbid Obesity BMI> 35% ICD-10 Z68: Yes Outcomes/Goals: Pt sets, maintains & shows weight loss goal & trend during rehab and Other additional outcomes/goals Intervention/Plan: Instruct on ideal BMI & set weight loss goal w/patient, Assist pt to ID & incorporate diet changes for weight loss by S9, Refer to Structured Weight Loss program as appropriate, Encourage goal of using 250-300dcal per session for weight loss and Other additional plan/interventions Healthy Eating Habits Will attend diet classes:: Yes Outcomes/Goals:: Consume diet rich in vegs,fruits,whole grain/high fiber,fish,lean meat, Limit sat/trans fats,cholesterol & added salts & sugars and Other additional outcome/goals: Intervention/Plan:: Assess current eating habits and Other Additional plan/interventions 30-day Reassessments:: Progressing Reassessment Notes & Comments:: Pt will attend nutrition class. Low sodium heart healthy diet encouraged. Education Gave educational materials for:: Signs & symptoms of hypoglycemia, Signs & symptoms of hyperglycemia, Relate diabetes to coronary artery disease and Healthy eating Nutrition - 60-Day Assessment Weight Mgt (Other Care) Height: 5 ft 4.5 in Weight:: 211 lb 8 oz BMI: 35.7 Core - 30-Day Assessment Visit Date of Eval: 03/06/25 Session #:: 11 Medication Compliance Preventative Medication(s):: Aspirin, TRAN inhibitor, Clopidogrel/P2Y12 inhibit, Statin/lipid and Beta marquise H/O mental health issues: depression, anxiety, or addiction?: No Doesn?t believe in the benefits of treatment?: No Believes medications are unnecessary or harmful?: No Has a concern about medication side effects?: No Expresses concern over the cost of medications?: No Outcomes/Goals: Verbalizes medications,desired effect & common side effects @ DC, Pt self-reports following medication regimen, Keeps card in wallet w/medications listed by DC and Other additional outcome/goals: Interventions/plans: Instruct on medication effects & side effects, Review medication list w/patient every two weeks, Instruct importance of taking meds as ordered & assist problem solving and Other additional Tobacco Use Tobacco Use: Non-smoker Hypertension Hypertension Diagnosis:: Hypertension ICD-10 I10 Resting Blood Pressure:: 104/62 [place] [employer] Hypertension Guidelines Peak Exercise Blood Pressure:: 130/68 Outcomes/Goals: Able to verbalize/achieve optimal blood pressure <130/80, Incorporates diet changes & exercise for blood pressure control by DC and Other additional outcomes/goals Interventions/plan: Instruct on optimal blood pressure, hypertension & medications, Instruct on effects of sodium, alcohol, stress, exercise &hypertension and Other additional plan/interventions 30 day Reassessments:: Progressing Reassessment Notes & Comments:: BP's have been elevated on most days. Will encourage a low sodium diet and weight loss. Will continue to monitor BP's and rep[ort to physician if necessary. Tobacco Cessation Referral Smoking Cessation Referral:: No Individual Education/Counseling:: No Education Schedule Given:: Yes Psychosocial - 30-Day Assess VIsit Date of Eval: 03/06/25 Session #:: 11 History of previous Mental disease:: No Target Goals Target Goals Psychosocial Test Tool Used:: [employer] QOL Cardiac and PHQ-9 Questionnaire phq-9 Severity See PHQ-9 Score: 2 Referral to Behavioral Health PS - Interventions: Yes: Attend Stress Management Classes Outcomes/Goals: See list Psychosocial Outcomes/Goals:: ID's personal stressors & 2 strategies to manage stress by discharge and Other Additional outcome/goals: Intervention/Plan: See List Interventions/Plan:: Assess stressors,coping strategies & signs of derpression on admission, Instruct/assist pt to develop coping & personal stress Mgt strategies, Refer to Behavioral Health if appropriate, Refer to Physician if appropriate, Instruct patient to recognize signs & symptoms of depression, Instruct patient to recog and Other additional plan/intervention 30-day Reassessments: 30 day Reassessments:: Met Reassessment Notes & Comments:: Pt denies any psychosocial issues at this time. Pt will attend stress management class. Psychosocial - 60-Day Assess Target Goals Target Goals Referral to Behavioral Health PS - Interventions: Yes: Attend Stress Management Classes Outcomes/Goals: See list Psychosocial Outcomes/Goals:: ID's personal stressors & 2 strategies to manage stress by discharge and Other Additional outcome/goals: Psychosocial - 90-Day Assess Target Goals Target Goals Referral to Behavioral Health PS - Interventions: Yes: Attend Stress Management Classes Psychosocial - Final Assessmen Target Goals Target Goals Referral to Behavioral Health PS - Interventions: Yes: Attend Stress Management Classes Nutrition - 90-Day Assessment Weight Mgt (Other Care) Height: 5 ft 4.5 in Weight:: 211 lb 8 oz BMI: 35.7 Nutrition - Final Assessment Weight Mgt (Other Care) Height: 5 ft 4.5 in Weight:: 211 lb 8 oz BMI: 35.7
[2025-03-06 07:15] VITALS: BP 104/62; BMI 35.7
== END 2025-03-20 23:59 ==
LOC: CR 09:15
PROVIDERS: PCP Family Medicine; Referring Provider Internal Medicine Cardiovascular Disease; Visit Provider Internal Medicine Cardiovascular Disease
DX: Z95.5 Presence of coronary angioplasty implant and graft (principal); I21.3 ST elevation (STEMI) myocardial infarction of unspecified site; I25.10 Atherosclerotic heart disease of native coronary artery without angina pectoris; E78.5 Hyperlipidemia, unspecified; I10 Essential (primary) hypertension
CPT/HCPCS: 93798

== ENCOUNTER 2025-04-19 09:15 | Outpatient (RCR) | payer MEDICARE, OTHER, SELFPAY ==
[2025-03-06 07:15] VITALS: BMI 35.7
[2025-03-21 00:33] VITALS: BP 104/62
--- NOTE | 2025-04-05 08:52 | PCM.CR.ITP ---
Exercise - Initial Assessment Physician Prescribed Exercise Modalities: Miranda Gutierrezne AD-7, SciFit Stepper and SciFit Lateral [employer] Nutrition - Initial Assessment Weight Mgt (Other Care) Height: 5 ft 4.5 in Weight:: 211 lb BMI: 35.6 Core - Initial Assessment Hypertension Resting Blood Pressure:: 130/60 [place] [employer] Hypertension Guidelines Psychosocial - Initial Assess Target Goals Target Goals Referral to Behavioral Health PS - Interventions: Yes: Attend Stress Management Classes Patient Health Questionnaire PHQ-9 Screening 60-Day Re-eval Assessment: 1. Little interest or pleasure in doing things: Not at all 2. Feeling down, depressed, or hopeless: Not at all 3. Trouble falling or staying asleep, or sleeping too much: Not at all 4. Feeling tired or having little energy: Several days 5. Poor appetite or overeating: Several days 6. Feeling bad about yourself -- or that you are a failure or have let yourself or your family down: Not at all 7. Trouble concentrating on things, such as reading the newspaper or watching television: Not at all 8. Moving or speaking so slowly that other people could have noticed. Or the opposite - being so fidgety or restless that you have been moving around a lot more than usual: Not at all 9. Thoughts that you would be better off , or of hurting yourself in some way: Not at all How difficult have these problems made it for you to do your work, take care of things at home, or get along with other people?: Not difficult at all Total Score: 2 Self-Efficacy 6-Item Scale 60-Day Re-eval Assessment: We would like to know how confident you are in doing certain activities. Please select your confidence level for: Fatigue Select Number: 8 Physical Discomfort or Pain Select Number: 8 Emotional Distress Select Number: 8 Other Symptoms or Health Problems Select Number: 8 Different Tasks and Activities Select Number: 8 Medication Select Number: 8 Total Score:: 8 Nutrition Survey Nutrition Survey Instructions Scoring Instructions Exercise - 30-day Assessment Physician Prescribed Exercise Modalities: Zacn Mattne AD-7, SciFit Stepper and SciFit Lateral [facility] Exercise - 60-day Assessment Visit Date of Eval: 04/05/25 Session #:: 24 Physician Prescribed Exercise Modalities: Miranda Gutierrezne AD-7, SciFit Stepper and SciFit Lateral [facility]ust[employer] Frequency: 3x/week for 12 weeks [36 sessions] Intensity: 60-80% of age predicted maximum heart rate reserve Duration: 30 - 45 minutes Current METSs:: 4.6 Target Heart Rate:: 91-114 Current RPE:: 12-13 Maximum Excercise HR:: 110 Resting Blood Pressure: 130/66 Maximum Exercise Blood Pressure: 136/80 EKG Type: NSR to ST w/incomplete BBB w/T wave inv. w/ rare PAC and PVC Outcomes & Goals Goals:: Verbalizes understanding of THR, RPE & goal METS by session 6, Documents in home exercise log/reports 30 min aerobic 5 day/wk by DC, Demonstrates accurate pulse taking by DC and Other additional outcome/goals: see below Intervention & Plan Exercise Program Goals: Instruct on personal THR & RPE, Instruct on MET level & personal MET goal, Show patient to take own pulse /validate performance until accurate, Instruct on home exercise and Other additional plan/int Physical Activity Home Exercise Physical Activity - Home Exercise: Safe Exercise, Warm-up, Self-monitoring, Cool-Down, Home Exercise > 30 min Daily and Sitting Time <3 hours/daily Outcomes & Goals Outcomes/Goals: Demonstrates correct Warm-up/exercise Cool-Down (S3) if = 2.5 METs, Verbalizes symptoms of exercise intolerance by Session 3 (S3), Demonstrate safe equipment use (S3) & follows exercise prescrition (6) and Other: See below Intervention & Plan Plan/Intervention: Instruct warm-up & cool-down if exercising at > 2 METs, Instruct on symptoms of exercise intolerance & actions to take, Instruct & monitor on saf, Assess intial functional capacity & safety risk and Other See below 30-day Reassessments 30 day Reassessments:: Progressing Reassessment Notes & Comments:: Proper warm up and cool down demonstrated and explained to pt. Pt demonstrates understanding in her daily sessions. Exercise - 90-day Assessment Physician Prescribed Exercise Modalities: Miranda ZAPIEN-7, SciFit Stepper and SciFit Lateral [facility] Exercise - Final/Discharge Physician Prescribed Exercise Modalities: Miranda ZAPIEN-7, SciFit Stepper and SciFit Lateral [facility]ust[employer] Nutrition - 30-Day Assessment Weight Mgt (Other Care) Height: 5 ft 4.5 in Weight:: 211 lb BMI: 35.6 Nutrition - 60-Day Assessment Program Goals Nutrition Program Goals Patient has diagnosis of Hyperlipidemia (ICD E78)?: Yes Visit Date of Eval: 04/05/25 Session #:: 24 Cholesterol/Lipids (Other Core Measures) Determine presence & major risk factors that modify LDL goal: Hypertension or hypertensive medication, Low HDL cholesterol <40 mg/dL*, Family history of premature CHD in Male < 55 years: female <65 yearsFa and Age men > 45 years; women >/= 55 years Outcomes/Goals: Pt IDs own risk factors & lifestyle modifications by Session 10, Verbalizes symptoms of angina & response by session 3., Pt independently manages and Other Additional Outcomes/Goals: Intervention/Plan: Advocate for lipid panel cholesterol medication if applicable, Instruct on personal lipid levels & lipid goals/NCEP guidelines, Instruct on cholesterol and Other additional plan/int Diabetes (Other Core Measures) Diabetes Type: Not Applicable Weight Mgt (Other Care) Height: 5 ft 4.5 in Weight:: 211 lb BMI: 35.6 Diagnosis Overweight/Obesity BMI> 30% ICD-10 E66: Yes Diagnosis High BMI/Morbid Obesity BMI> 35% ICD-10 Z68: Yes Outcomes/Goals: Pt sets, maintains & shows weight loss goal & trend during rehab and Other additional outcomes/goals Intervention/Plan: Instruct on ideal BMI & set weight loss goal w/patient, Assist pt to ID & incorporate diet changes for weight loss by S9, Refer to Structured Weight Loss program as appropriate, Encourage goal of using 250-300dcal per session for weight loss and Other additional plan/interventions 30 day Reassessments:: Progressing Reassessment Notes & Comments:: Pt is scheduled to attend nutrition class. Heart healthy low sodium diet encouraged. Healthy Eating Habits Will attend diet classes:: Yes Outcomes/Goals:: Consume diet rich in vegs,fruits,whole grain/high fiber,fish,lean meat, Limit sat/trans fats,cholesterol & added salts & sugars and Other additional outcome/goals: Intervention/Plan:: Assess current eating habits and Other Additional plan/interventions 30-day Reassessments:: Progressing Reassessment Notes & Comments:: Pt is scheduled to attend nutrition class. Heart healthy low sodium diet encouraged. Education Gave educational materials for:: Signs & symptoms of hypoglycemia, Signs & symptoms of hyperglycemia, Relate diabetes to coronary artery disease and Healthy eating Core - Final Assessment Hypertension Resting Blood Pressure:: 130/60 [place] [employer] Hypertension Guidelines Core - 60-Day Assessment Visit Date of Eval: 04/05/25 Session #:: 24 Medication Compliance Preventative Medication(s):: Aspirin, TRAN inhibitor, Clopidogrel/P2Y12 inhibit, Statin/lipid and Beta marquise H/O mental health issues: depression, anxiety, or addiction?: No Doesn?t believe in the benefits of treatment?: No Believes medications are unnecessary or harmful?: No Has a concern about medication side effects?: No Expresses concern over the cost of medications?: No Outcomes/Goals: Verbalizes medications,desired effect & common side effects @ DC, Pt self-reports following medication regimen, Keeps card in wallet w/medications listed by DC and Other additional outcome/goals: Interventions/plans: Instruct on medication effects & side effects, Review medication list w/patient every two weeks, Instruct importance of taking meds as ordered & assist problem solving and Other additional Tobacco Use Tobacco Use: Non-smoker Hypertension Hypertension Diagnosis:: Hypertension ICD-10 I10 Resting Blood Pressure:: 130/66 Resting Blood Pressure:: 130/60 [place] [employer] Hypertension Guidelines Peak Exercise Blood Pressure:: 136/80 Outcomes/Goals: Able to verbalize/achieve optimal blood pressure <130/80, Incorporates diet changes & exercise for blood pressure control by DC and Other additional outcomes/goals Interventions/plan: Instruct on optimal blood pressure, hypertension & medications, Instruct on effects of sodium, alcohol, stress, exercise &hypertension and Other additional plan/interventions 30 day Reassessments:: Progressing Reassessment Notes & Comments:: Pt had her Lisinopril decreased 02/08 to 2.5 mg QD. BP's are slightly elevated. Will continue to monitor and report to pt's physician if necessary. Tobacco Cessation Referral Smoking Cessation Referral:: No Individual Education/Counseling:: No Education Schedule Given:: Yes Psychosocial - 30-Day Assess Target Goals Target Goals Referral to Behavioral Health PS - Interventions: Yes: Attend Stress Management Classes Outcomes/Goals: See list Psychosocial Outcomes/Goals:: ID's personal stressors & 2 strategies to manage stress by discharge and Other Additional outcome/goals: Psychosocial - 60-Day Assess VIsit Date of Eval: 04/05/25 Session #:: 24 History of previous Mental disease:: No Target Goals Target Goals Psychosocial Test Tool Used:: [employer] QOL Cardiac and PHQ-9 Questionnaire phq-9 Severity See PHQ-9 Score: 2 Referral to Behavioral Health PS - Interventions: Yes: Attend Stress Management Classes Outcomes/Goals: See list Psychosocial Outcomes/Goals:: ID's personal stressors & 2 strategies to manage stress by discharge and Other Additional outcome/goals: Intervention/Plan: See List Interventions/Plan:: Assess stressors,coping strategies & signs of derpression on admission, Instruct/assist pt to develop coping & personal stress Mgt strategies, Refer to Behavioral Health if appropriate, Refer to Physician if appropriate, Instruct patient to recognize signs & symptoms of depression, Instruct patient to recog and Other additional plan/intervention 30-day Reassessments: 30 day Reassessments:: Progressing Reassessment Notes & Comments:: Pt denies any psychosocial issues at this time Psychosocial - 90-Day Assess Target Goals Target Goals Referral to Behavioral Health PS - Interventions: Yes: Attend Stress Management Classes Psychosocial - Final Assessmen Target Goals Target Goals Referral to Behavioral Health PS - Interventions: Yes: Attend Stress Management Classes Nutrition - 90-Day Assessment Weight Mgt (Other Care) Height: 5 ft 4.5 in Weight:: 211 lb BMI: 35.6 Nutrition - Final Assessment Weight Mgt (Other Care) Height: 5 ft 4.5 in Weight:: 211 lb BMI: 35.6
[2025-04-05 08:54] VITALS: BP 130/66
[2025-04-05 09:07] VITALS: BP 130/60; BP 130/66; BMI 35.6
== END 2025-04-20 23:59 ==
LOC: CR 09:15
PROVIDERS: PCP Family Medicine; Referring Provider Internal Medicine Cardiovascular Disease; Visit Provider Internal Medicine Cardiovascular Disease
DX: Z95.5 Presence of coronary angioplasty implant and graft (principal); I21.3 ST elevation (STEMI) myocardial infarction of unspecified site; I25.10 Atherosclerotic heart disease of native coronary artery without angina pectoris; E78.5 Hyperlipidemia, unspecified; I10 Essential (primary) hypertension
CPT/HCPCS: 93798

== ENCOUNTER 2025-05-10 09:15 | Outpatient (RCR) | payer MEDICARE, OTHER, SELFPAY ==
[2025-04-05 09:07] VITALS: BMI 35.6
[2025-04-21 00:16] VITALS: BP 104/62; BP 130/60; BP 130/66
--- NOTE | 2025-05-03 08:18 | PCM.CR.ITP ---
Exercise - Initial Assessment Physician Prescribed Exercise Modalities: Miranda Ashton AD-7, SciFit Stepper and SciFit Lateral Waterproof Material Folder Nutrition - Initial Assessment Weight Mgt (Other Care) Height: 5 ft 4.5 in Weight:: 209 lb BMI: 35.3 Psychosocial - Initial Assess Target Goals Target Goals Referral to Behavioral Health PS - Interventions: Yes: Attend Stress Management Classes Patient Health Questionnaire PHQ-9 Screening 90-Day Re-eval Assessment: 1. Little interest or pleasure in doing things: Not at all 2. Feeling down, depressed, or hopeless: Not at all 3. Trouble falling or staying asleep, or sleeping too much: Not at all 4. Feeling tired or having little energy: Several days 5. Poor appetite or overeating: Several days 6. Feeling bad about yourself -- or that you are a failure or have let yourself or your family down: Not at all 7. Trouble concentrating on things, such as reading the newspaper or watching television: Not at all 8. Moving or speaking so slowly that other people could have noticed. Or the opposite - being so fidgety or restless that you have been moving around a lot more than usual: Not at all 9. Thoughts that you would be better off , or of hurting yourself in some way: Not at all How difficult have these problems made it for you to do your work, take care of things at home, or get along with other people?: Not difficult at all Total Score: 2 Self-Efficacy 6-Item Scale 90-Day Re-eval Assessment: We would like to know how confident you are in doing certain activities. Please select your confidence level for: Fatigue Select Number: 8 Physical Discomfort or Pain Select Number: 8 Emotional Distress Select Number: 8 Other Symptoms or Health Problems Select Number: 8 Different Tasks and Activities Select Number: 8 Medication Select Number: 8 Total Score:: 8 Nutrition Survey Nutrition Survey Instructions Scoring Instructions Exercise - 30-day Assessment Physician Prescribed Exercise Modalities: Miranda Ashton AD-7, SciFit Stepper and SciFit Lateral Waterproof Material Folder Exercise - 60-day Assessment Physician Prescribed Exercise Modalities: Miranda Ashton AD-7, SciFit Stepper and SciFit Lateral Waterproof Material Folder Exercise - 90-day Assessment Visit Date of Eval: 05/03/25 Session #:: 32 Physician Prescribed Exercise Modalities: Schwinn Airdyne AD-7, SciFit Stepper and SciFit Lateral Waterproof Material Folder Frequency: 3x/week for 12 weeks [36 sessions] Intensity: 60-80% of age predicted maximum heart rate reserve Duration: 30 - 45 minutes Current METSs:: 5.9 Target Heart Rate:: 91-123 Current RPE:: 13 Maximum Excercise HR:: 121 Resting Blood Pressure: 122/72 Maximum Exercise Blood Pressure: 138/62 EKG Type: NSR to ST w/incomplete BBB w/rare PAC, PVC Outcomes & Goals Goals:: Verbalizes understanding of THR, RPE & goal METS by session 6, Documents in home exercise log/reports 30 min aerobic 5 day/wk by DC, Demonstrates accurate pulse taking by DC and Other additional outcome/goals: see below Intervention & Plan Exercise Program Goals: Instruct on personal THR & RPE, Instruct on MET level & personal MET goal, Show patient to take own pulse /validate performance until accurate, Instruct on home exercise and Other additional plan/int Physical Activity Home Exercise Physical Activity - Home Exercise: Safe Exercise, Warm-up, Self-monitoring, Cool-Down, Home Exercise > 30 min Daily and Sitting Time <3 hours/daily Outcomes & Goals Outcomes/Goals: Demonstrates correct Warm-up/exercise Cool-Down (S3) if = 2.5 METs, Verbalizes symptoms of exercise intolerance by Session 3 (S3), Demonstrate safe equipment use (S3) & follows exercise prescrition (6) and Other: See below Intervention & Plan Plan/Intervention: Instruct warm-up & cool-down if exercising at > 2 METs, Instruct on symptoms of exercise intolerance & actions to take, Instruct & monitor on saf, Assess intial functional capacity & safety risk and Other See below 30-day Reassessments 30 day Reassessments:: Met Reassessment Notes & Comments:: Pt has 4 sessions remaining. Pt has been able to increase her workloads to 5.9 METS. Will give pt her exercise prescription as well as suggestions within the community to continue her exercise. Exercise - Final/Discharge Physician Prescribed Exercise Modalities: Schwinn Airdyne AD-7, SciFit Stepper and SciFit Lateral Waterproof Material Folder Nutrition - 30-Day Assessment Weight Mgt (Other Care) Height: 5 ft 4.5 in Weight:: 209 lb BMI: 35.3 Nutrition - 60-Day Assessment Weight Mgt (Other Care) Height: 5 ft 4.5 in Weight:: 209 lb BMI: 35.3 Core - 30-Day Assessment Hypertension Stateless [employer] Hypertension Guidelines Reassessment Notes & Comments:: Pt's BP's are within AHA normal limits on some days. Pt is working with her physician and has had BP med changes 02/08/25. Core - Final Assessment Hypertension Stateless Heart [employer] Hypertension Guidelines Reassessment Notes & Comments:: Pt's BP's are within AHA normal limits on some days. Pt is working with her physician and has had BP med changes 02/08/25. Core - 90 Day Assessment Visit Date of Eval: 05/03/25 Session #:: 32 Medication Compliance Preventative Medication(s):: Aspirin, TRAN inhibitor, Clopidogrel/P2Y12 inhibit, Statin/lipid and Beta marquise H/O mental health issues: depression, anxiety, or addiction?: No Doesn?t believe in the benefits of treatment?: No Believes medications are unnecessary or harmful?: No Has a concern about medication side effects?: No Expresses concern over the cost of medications?: No Outcomes/Goals: Verbalizes medications,desired effect & common side effects @ DC, Pt self-reports following medication regimen, Keeps card in wallet w/medications listed by DC and Other additional outcome/goals: Interventions/plans: Instruct on medication effects & side effects, Review medication list w/patient every two weeks, Instruct importance of taking meds as ordered & assist problem solving and Other additional Tobacco Use Tobacco Use: Non-smoker Hypertension Hypertension Diagnosis:: Hypertension ICD-10 I10 Resting Blood Pressure:: 122/72 Stateless Heart Association Hypertension Guidelines Peak Exercise Blood Pressure:: 138/62 Outcomes/Goals: Able to verbalize/achieve optimal blood pressure <130/80, Incorporates diet changes & exercise for blood pressure control by DC and Other additional outcomes/goals Interventions/plan: Instruct on optimal blood pressure, hypertension & medications, Instruct on effects of sodium, alcohol, stress, exercise &hypertension and Other additional plan/interventions 30 day Reassessments:: Met Reassessment Notes & Comments:: Pt's BP's are within AHA normal limits on some days. Pt is working with her physician and has had BP med changes 02/08/25. Tobacco Cessation Referral Smoking Cessation Referral:: No Individual Education/Counseling:: No Education Schedule Given:: Yes Psychosocial - 30-Day Assess Target Goals Target Goals Referral to Behavioral Health PS - Interventions: Yes: Attend Stress Management Classes Psychosocial - 60-Day Assess Target Goals Target Goals Referral to Behavioral Health PS - Interventions: Yes: Attend Stress Management Classes Psychosocial - 90-Day Assess VIsit Date of Eval: 05/03/25 Session #:: 32 History of previous Mental disease:: No Target Goals Target Goals Psychosocial Test Tool Used:: PHQ-9 Questionnaire phq-9 Severity See PHQ-9 Score: 2 Referral to Behavioral Health PS - Interventions: Yes: Attend Stress Management Classes Outcomes/Goals: See list Psychosocial Outcomes/Goals:: ID's personal stressors & 2 strategies to manage stress by discharge and Other Additional outcome/goals: Intervention/Plan: See List Interventions/Plan:: Assess stressors,coping strategies & signs of derpression on admission, Instruct/assist pt to develop coping & personal stress Mgt strategies, Refer to Behavioral Health if appropriate, Refer to Physician if appropriate, Instruct patient to recognize signs & symptoms of depression, Instruct patient to recog and Other additional plan/intervention 30-day Reassessments: 30 day Reassessments:: Met Reassessment Notes & Comments:: Pt has attended stress management class. Pt denies any psychosocial issues at this time. Psychosocial - Final Assessmen Target Goals Target Goals Referral to Behavioral Health PS - Interventions: Yes: Attend Stress Management Classes Nutrition - 90-Day Assessment Program Goals Nutrition Program Goals Patient has diagnosis of Hyperlipidemia (ICD E78)?: Yes Visit Date of Eval: 05/03/25 Session #:: 32 Cholesterol/Lipids (Other Core Measures) Determine presence & major risk factors that modify LDL goal: Hypertension or hypertensive medication, Low HDL cholesterol <40 mg/dL*, Family history of premature CHD in Male < 55 years: female <65 yearsFa and Age men > 45 years; women >/= 55 years Outcomes/Goals: Pt IDs own risk factors & lifestyle modifications by Session 10, Verbalizes symptoms of angina & response by session 3., Pt independently manages and Other Additional Outcomes/Goals: Intervention/Plan: Advocate for lipid panel cholesterol medication if applicable, Instruct on personal lipid levels & lipid goals/NCEP guidelines, Instruct on cholesterol and Other additional plan/int Diabetes (Other Core Measures) Diabetes Type: Not Applicable Weight Mgt (Other Care) Height: 5 ft 4.5 in Weight:: 209 lb BMI: 35.3 Diagnosis Overweight/Obesity BMI> 30% ICD-10 E66: Yes Diagnosis High BMI/Morbid Obesity BMI> 35% ICD-10 Z68: Yes Outcomes/Goals: Pt sets, maintains & shows weight loss goal & trend during rehab and Other additional outcomes/goals Intervention/Plan: Instruct on ideal BMI & set weight loss goal w/patient, Assist pt to ID & incorporate diet changes for weight loss by S9, Refer to Structured Weight Loss program as appropriate, Encourage goal of using 250-300dcal per session for weight loss and Other additional plan/interventions Healthy Eating Habits Will attend diet classes:: Yes Outcomes/Goals:: Consume diet rich in vegs,fruits,whole grain/high fiber,fish,lean meat, Limit sat/trans fats,cholesterol & added salts & sugars and Other additional outcome/goals: Intervention/Plan:: Assess current eating habits and Other Additional plan/interventions 30-day Reassessments:: Met Reassessment Notes & Comments:: Pt has attended nutrition classes. Pt has lost weight as well. Encourage pt to keep a food diary for our review. Education Gave educational materials for:: Signs & symptoms of hypoglycemia, Signs & symptoms of hyperglycemia, Relate diabetes to coronary artery disease and Healthy eating Nutrition - Final Assessment Weight Mgt (Other Care) Height: 5 ft 4.5 in Weight:: 209 lb BMI: 35.3
[2025-05-03 08:28] VITALS: BP 122/72; BMI 35.3
[2025-05-03 08:37] VITALS: BP 122/72
== END 2025-05-20 23:59 ==
LOC: CR 09:15
PROVIDERS: PCP Family Medicine; Referring Provider Internal Medicine Cardiovascular Disease; Visit Provider Internal Medicine Cardiovascular Disease
DX: I25.10 Atherosclerotic heart disease of native coronary artery without angina pectoris (principal); I21.3 ST elevation (STEMI) myocardial infarction of unspecified site; E78.5 Hyperlipidemia, unspecified; I10 Essential (primary) hypertension; Z95.5 Presence of coronary angioplasty implant and graft
CPT/HCPCS: 93798

== ENCOUNTER 2025-05-17 16:45 | Emergency (ER) | payer MEDICARE, OTHER, SELFPAY ==
[2025-05-03 08:28] VITALS: BMI 35.3
[2025-05-17 16:46] VITALS: BP 169/66; PULSE 79; RESP 16; TEMP 36.6; O2SAT 96; BMI 34.4
--- NOTE | 2025-05-17 16:49 | ED.RN ---
consulted with dr brady. order for ct obtained.
--- NOTE | 2025-05-17 16:54 | CT_ITS ---
EXAM: BRAIN/HEAD WITHOUT CONTRAST CLINICAL HISTORY: 69 y/o F with FALL. COMPARISON: None. TECHNIQUE: Routine CT imaging of the head without IV contrast. Additional multiplanar reformats were obtained. Dose reduction techniques were used including intermediate exposure control (AEC),iterative reconstruction technique, and/or mA and/or KV dose adjustments based on patient's size. FINDINGS: The ventricles, sulci and cisterns are normal for patient age. There is no evidence of acute intracranial hemorrhage or herniation. There is no midline shift, mass effect, or extra-axial collection. Mild scattered supratentorial white matter hypodensities. Tiny lacunar type infarct within the left basal ganglia. The lee-white matter interfaces are otherwise maintained. The orbits, visualized paranasal sinuses and mastoids are unremarkable. No acute calvarial fracture or scalp hematoma. CT/Brain/Head without Contrast IMPRESSION: No acute intracranial finding. Reading Location: [id number]
--- NOTE | 2025-05-17 17:20 | EX.ED.DYSGE1 ---
HPI <SLIME Ritter - Last Filed: 05/17/25 21:26> History of Present Illness Chief Complaint: Fall Narrative Narrative: Patient presenting today due to a mechanical fall that occurred this evening. She was outside when she got her feet caught on something and tripped, she sven her head towards the left when she fell but did not hit her head against the ground. She is on Plavix due to history of CAD and stent placement, she was told to come to the ED for any head injury that occurred. She reports that since the fall she has had a headache to the left side of her head. She denies any other injury. She is ambulating without difficulty. No LOC occurred, she has had no nausea or vomiting. PFSH <SLIME Ritter - Last Filed: 05/17/25 21:26> [facility] Medical History Dyslipidemia Coronary artery disease Osteoarthritis of carpometacarpal joint of left thumb Pain of left thumb Strain of left knee Osteoarthritis of left knee Stress fracture of right foot Greater trochanteric bursitis of left hip Hyperglycemia Obesity HTN (hypertension) Chest pain Home Medications ?Medication ?Instructions ?Recorded ?Last Taken ?Type magnesium gluconate 27 mg 27 mg PO BID 08/31/22 Unknown History magnesium (500 mg) tablet (Mag-G) multivitamin 1 tab PO QAM 08/31/22 Unknown History omega 4-xfn-lbc-fish oil 300 1 cap PO DAILY 08/31/22 Unknown History mg-1,000 mg capsule (Fish Oil) calcium 600 mg (as 1 cap PO DAILY 04/28/23 Unknown History carbonate)-vitamin D3 5 mcg (200 unit) capsule omeprazole 20 mg tablet,delayed 20 mg PO DAILY 04/28/23 Unknown History release oxybutynin chloride 10 mg 10 mg PO DAILY bladder 01/25/25 Unknown History tablet,extended release 24 hr aspirin 81 mg tablet,delayed 81 mg PO DAILY@0800 30 days #30 01/27/25 Unknown Rx release tabs hydrochlorothiazide 25 mg tablet 12.5 mg (1/2 x 25 mg) PO DAILY 01/27/25 10/25/17 07:00 Rx blood pressure 30 days #0 tabs atorvastatin 40 mg tablet 40 mg PO QHS #90 tabs 02/15/25 Unknown Rx carvedilol 3.125 mg tablet 3.125 mg PO BID #180 tabs 02/15/25 Unknown Rx clopidogrel 75 mg tablet 75 mg PO DAILY #90 tabs 02/15/25 Unknown Rx lisinopril 2.5 mg tablet 2.5 mg PO DAILY #90 tabs 02/15/25 Unknown Rx Allergy/AdvReac Type Severity Reaction Status Date / Time Sulfa (Sulfonamide Allergy Rash Verified 05/17/25 16:46 Antibiotics) Family History Sister Hypertension Mother CVA (cerebral vascular accident) Hypertension Surgical History Stented coronary artery (01/25/25) History of tonsillectomy History of tubal ligation Social History Smoking Status: Never smoker alcohol intake: current alcohol intake frequency: holidays/special occasions only ROS <SLIME Ritter - Last Filed: 05/17/25 21:26> ROS ED Constitutional Constitutional ED: Denies chills or fever(s) Cardiovascular Cardiovascular: Denies chest pain Respiratory/Chest Respiratory/Chest: Denies dyspnea Gastrointestinal Gastrointestinal: Denies abdominal pain, nausea or vomiting Musculoskeletal Musculoskeletal: Reports neck pain Integumentary Denies rash Neurologic Neurologic: Reports headache(s) EXAM <SLIME Ritter - Last Filed: 05/17/25 21:26> Physical Exam Const Vital Signs: 05/17/25 16:46 05/17/25 18:27 05/17/25 18:28 Temperature 97.9 F Temperature Source Oral Pulse Rate 79 74 Respiratory Rate 16 16 Respiratory Effort Normal Non-Labored Respiratory Depth Normal Respiratory Pattern Normal Blood Pressure 169/66 H 156/88 H Blood Pressure Mean 100 110 Pulse Ox 96 99 Oxygen Delivery Method Room Air Room Air 05/17/25 19:08 Temperature 96.9 F L Temperature Source Pulse Rate 69 Respiratory Rate 16 Respiratory Effort Respiratory Depth Respiratory Pattern Blood Pressure 133/72 H Blood Pressure Mean 92 Pulse Ox 99 Oxygen Delivery Method Positive well nourished, well developed and no apparent distress General Appearance ED: well developed HEENT Reports normocephalic and head/scalp atraumatic Mouth ED: Yes moist mucous membranes normal Eyes PERRL and EOMs intact bilaterally Neck full ROM and supple Neck Narrative: No midline cervical tenderness. Pain to the left trapezius muscle and left paracervical muscles. Chest Wall inspection of chest normal Resp normal respiratory effort and clear to auscultation bilaterally Cardio regular rate and regular rhythm GI soft to palpation, non-tender, non-distended and no masses Back/Spine normal ROM and normal to inspection Extremity normal to inspection and full ROM Neuro oriented x3, CN's II-XII intact bilaterally, moves all extremities, no focal motor deficits and no sensory deficits noted Sensorium / Orientation: awake and alert Psych mental status grossly normal and thought process normal Skin no rashes or lesions noted and no wounds <Dr. Eblert Whitmore MD - Last Filed: 05/17/25 19:16> Physical Exam Const Vital Signs: 05/17/25 16:46 05/17/25 18:27 05/17/25 18:28 Temperature 97.9 F Temperature Source Oral Pulse Rate 79 74 Respiratory Rate 16 16 Respiratory Effort Normal Non-Labored Respiratory Depth Normal Respiratory Pattern Normal Blood Pressure 169/66 H 156/88 H Blood Pressure Mean 100 110 Pulse Ox 96 99 Oxygen Delivery Method Room Air Room Air 05/17/25 19:08 Temperature 96.9 F L Temperature Source Pulse Rate 69 Respiratory Rate 16 Respiratory Effort Respiratory Depth Respiratory Pattern Blood Pressure 133/72 H Blood Pressure Mean 92 Pulse Ox 99 Oxygen Delivery Method [facility] <SLIME Ritter - Last Filed: 05/17/25 21:26> [facility] Narrative Medical decision making narrative: Patient presenting due to a fall that occurred this afternoon at home. She got her feet caught on something and tripped, she reports jarring her head hard towards the left but did not actually hit her head against anything. She is on Plavix due to history of CAD and stent placement and was told to come in for any head injury. Head CT was obtained, this shows no acute intracranial findings. It does show a lacunar infarct and chronic changes. She can take Tylenol as needed for her pain. She has been reassured, recommended follow-up with PCP. She will be discharged home in stable condition. I have personally performed a face to face assessment of the patient and have reviewed the SARAH Note. I performed a substantive portion of the visit including all aspects of the following. My camarena findings include: History is [69-year-old female on Plavix due to a prior STEMI. Tripped and fell today causing a contusion to her left lower leg she does not believe she hit her head but she has a headache. Denies other complaints. States she was feeling well prior to the fall.] Exam is [69-year-old female no acute distress sitting upright in bed. Vital signs stable afebrile. HEENT exam pupils round react light. No signs of trauma to her face or scalp. Nontender no hematoma. No laceration. Neck nontender. Trachea midline. Back nontender. Lungs clear. Heart regular rhythm rate about 70 no murmur. Chest wall ribs nontender. Abdomen soft nontender. No peritoneal signs. Pelvic girdle intact. Moving all 4 extremities. No deformity. Normal strength. Normal range of motion. 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 Normal dorsi plantarflexion. She does have a contusion with a small bruise on her anterior left jose just below the knee. Neurologically she is awake alert. Answering questions following commands.] Medical Decision Making [69-year-old fell complaining of a headache she is on Plavix CT was done of the brain showed chronic changes no acute process. She does not need any other imaging or labs. She will be discharged to home.] Other additions or changes: [None] Radiography Diagnostic Testing: Clinical Impression(s) from Imaging Studies Brain CT 05/17/25 16:54 IMPRESSION: No acute intracranial finding. Reading Location: [id number] <Dr. Elbert Whitmore MD - Last Filed: 05/17/25 19:16> [facility] Narrative Medical decision making narrative: Patient presenting due to a fall that occurred this afternoon at home. She got her feet caught on something and tripped, she reports jarring her head hard towards the left but did not actually hit her head against anything. She is on Plavix due to history of CAD and stent placement and was told to come in for any head injury. Head CT was obtained, this shows no acute intracranial findings. It does show a lacunar infarct I have personally performed a face to face assessment of the patient and have reviewed the SARAH Note. I performed a substantive portion of the visit including all aspects of the following. My camarena findings include: History is [69-year-old female on Plavix due to a prior STEMI. Tripped and fell today causing a contusion to her left lower leg she does not believe she hit her head but she has a headache. Denies other complaints. States she was feeling well prior to the fall.] Exam is [69-year-old female no acute distress sitting upright in bed. Vital signs stable afebrile. HEENT exam pupils round react light. No signs of trauma to her face or scalp. Nontender no hematoma. No laceration. Neck nontender. Trachea midline. Back nontender. Lungs clear. Heart regular rhythm rate about 70 no murmur. Chest wall ribs nontender. Abdomen soft nontender. No peritoneal signs. Pelvic girdle intact. Moving all 4 extremities. No deformity. Normal strength. Normal range of motion. 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 Normal dorsi plantarflexion. She does have a contusion with a small bruise on her anterior left jose just below the knee. Neurologically she is awake alert. Answering questions following commands.] Medical Decision Making [69-year-old fell complaining of a headache she is on Plavix CT was done of the brain showed chronic changes no acute process. She does not need any other imaging or labs. She will be discharged to home.] Other additions or changes: [None] Radiography Diagnostic Testing: Clinical Impression(s) from Imaging Studies Brain CT 05/17/25 16:54 IMPRESSION: No acute intracranial finding. 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/antiplatelets Instructions: ED Head Injury (Adult) Prescriptions: No Action multivitamin Tablet 1 tab PO QAM magnesium gluconate [Mag-G] 27 mg magnesium (500 mg) tablet 27 mg PO BID omega 5-ebe-vfl-fish oil [Fish Oil] 300-1,000 mg capsule 1 cap PO DAILY calcium carbonate-vitamin D3 600 mg-5 mcg (200 unit) capsule 1 cap PO DAILY omeprazole 20 mg tablet,delayed release (DR/EC) 20 mg PO DAILY atorvastatin 40 mg tablet 40 mg PO QHS Qty: 90 3RF carvedilol 3.125 mg tablet 3.125 mg PO BID Qty: 180 3RF clopidogrel 75 mg tablet 75 mg PO DAILY Qty: 90 3RF lisinopril 2.5 mg tablet 2.5 mg PO DAILY Qty: 90 3RF oxybutynin chloride 10 mg tablet extended release 24hr 10 mg PO DAILY aspirin 81 mg Tablet,Delayed Release (Dr/Ec) 81 mg PO DAILY@0800 30 Days Qty: 30 2RF hydrochlorothiazide 25 MG tablet 12.5 mg PO DAILY 30 Days Qty: 0 0RF Primary Care Provider: Princess Brantley Referrals: Princess Brantley DO [Primary Care Provider] - Activity Restrictions/Additional Instructions: Follow-up with your PCP in 5 to 7 days and return for any other concerns. Print Language: Slovenian Disposition Disposition: Home, Self Care Discharge Date/Time: 05/17/25 19:08
[2025-05-17 18:27] VITALS: BP 156/88; PULSE 74; RESP 16; O2SAT 99
[2025-05-17] MEDS: HYDROcodone Bitartrate/Apap 5/325 Tablet PO (19:06)
[2025-05-17 19:08] VITALS: BP 133/72; PULSE 69; RESP 16; TEMP 36.1; O2SAT 99
== END 2025-05-17 19:08 | disposition home or self-care (01) ==
PROVIDERS: Emergency Provider Emergency Medicine; PCP Family Medicine; Visit Provider Emergency Medicine
DX: S80.12XA Contusion of left lower leg, initial encounter (principal); W01.0XXA Fall on same level from slipping, tripping and stumbling without subsequent striking against object, initial encounter; R51.9 Headache, unspecified; I25.10 Atherosclerotic heart disease of native coronary artery without angina pectoris; I25.2 Old myocardial infarction; I10 Essential (primary) hypertension; E66.9 Obesity, unspecified; Z68.34 Body mass index [BMI] 34.0-34.9, adult; Z95.5 Presence of coronary angioplasty implant and graft; Z79.02 Long term (current) use of antithrombotics/antiplatelets; Z79.82 Long term (current) use of aspirin; Z79.899 Other long term (current) drug therapy
CPT/HCPCS: 70450; 99282

== ENCOUNTER → 2025-09-11 | Outpatient (CLI) | payer MEDICARE, OTHER, SELFPAY ==
[2025-05-03 08:28] VITALS: BMI 35.3
--- NOTE | 2025-09-11 09:11 | RAD_ITS ---
PROCEDURE: KNEE 4 OR MORE VIEWS 09/11/2025 REASON FOR EXAM: FALL X 4 MONTHS, PAIN TECHNIQUE: Procedure Code: RADKN Modality: DX Procedure: KNEE 4 OR MORE VIEWS Laterality: Left COMPARISON: None FINDINGS: There is no evidence of fracture or dislocation. There is moderate arthritis of the patellofemoral joint. There is moderate arthritis of the medial joint space compartment of the knee. There is mild arthritis of the lateral joint space compartment of the knee. There is no knee joint effusion. The periarticular soft tissues are normal. RAD/Knee 4 or More Views IMPRESSION: There is [id number] tricompartment arthritis of the left knee. Reading Location: [place] [id number]
[2025-09-11 11:19] LABS: AST(SGOT) 24 U/L (<=31); Alanine Aminotransfer ALT/SGPT 22 U/L (<=34); Albumin, Serum 4.3 g/dL (3.4-4.8); Alkaline Phosphatase 99 U/L (35-104); Bilirubin, Direct 0.21 mg/dL (0.00-0.30); Cholesterol 119 mg/dL (<=200); Globulin 3.0 g/dL (2.2-4.2); Low Density Lipoprotein Calc. 48 mg/dL; Triglycerides 75 mg/dL; Very Low Density Lipoprotein 15 mg/dL (5-40); cholesterol:hdl ratio screen 2.13
== END | disposition home or self-care (01) ==
LOC: MTRAD 09:06
PROVIDERS: PCP Family Medicine; Referring Provider Physician Assistant Medical; Visit Provider Nurse Practitioner Family
DX: M25.562 Pain in left knee (principal); E78.00 Pure hypercholesterolemia, unspecified; Z91.81 History of falling
CPT/HCPCS: 36415; 73564; 80061; 80076